=== PATIENT | female | born 1940 | race Caucasian/White ===

== ENCOUNTER 2024-01-26 17:43 | Emergency (ER) | payer MEDICARE, OTHER, SELFPAY ==
[2024-01-26 17:55] VITALS: BP 153/70
[2024-01-26 18:49] VITALS: BMI 22.6
--- NOTE | 2024-01-26 20:10 | ED.GENMED ---
History of Present Illness
General
Chief Complaint: Fall
Time Seen by Provider: 01/26/24 18:47
History of Present Illness
History of Present Illness:
84-year-old female with history of polymyalgia rheumatica and issues with balance presenting to the emergency department after a fall. Patient reports earlier today she tripped on a dog bed in her house. She reports that she was not wearing right
shoes and did not have her cane, fell backward and struck her head on a cabinet door. Denies loss of consciousness, however immediately felt blood trickling down her head so called her neighbor. Reports that her tetanus is up-to-date. Also
reports that she suffered a skin tear to her right elbow, however denies significant pain to the extremities. Denies any chest pain, breathing, abdominal pain. Denies any visual changes. Denies any significant headache. Denies additional acute
medical complaints.
Past History
Past History
ED Past Medical History: HTN, Other (Hearing loss left ear, dry eye, thyroid nodules, difficulty swallowing, restrictive lung disease, head tremors, migraine, renal calculi, ovarian cyst) and Other
ED Past Surgical History: Gynecological (Ovarian cystectomy), Orthopedic (Left knee replacement, spinal surgery for scoliosis, spinal stenosis surgery, plates and neck, carpal tunnel release bilaterally) and Other (Read and agree with pshx)
Social History
Tobacco: Non-smoker
Alcohol: None
Drug: None
Personal: Single
Living: alone
Employment: Employed
Family History
Family History: Hypertension
Phy Exam
Physical Exam
Physical Exam:
General: Well-appearing, no clinical signs of dehydration, nontoxic and in no acute distress
HEENT: protecting airway
Neck: appears supple, no midline tenderness
Head: 5 cm laceration to the parietal aspect of the scalp, bleeding controlled
CV: Normal heart rate, regular rhythm
Resp: No accessory muscle use, no increased work of breathing, lungs clear to auscultation bilaterally
Abd: No distention
Extremities: No deformities, no swelling, no erythema, small skin avulsion to the right elbow with range of motion intact.
Neuro: alert, no focal neurologic deficit
: deferred
Rectal: deferred
Psych: Normal affect
Skin: Intact
Course
Orders/Labs/Results
Orders:
Orders
01/26/24 19:02
CT Cervical Spine W/o Iv Contr Urgent
Comment:
Reason For Exam: fall, lac
CT Head W/o Iv Contrast Urgent
Comment:
Reason For Exam: fall, large lac
Vital Signs
Initial and Last Documented VS:
Initial Vital Signs
Temp Pulse Resp BP Pulse Ox
98.2 F 81 16 153/70 98
01/26/24 17:55 01/26/24 17:55 01/26/24 17:55 01/26/24 17:55 01/26/24 17:55
Last Documented Vital Signs
Temp Pulse Resp BP Pulse Ox
98.2 F 81 16 153/70 98
01/26/24 17:55 01/26/24 17:55 01/26/24 17:55 01/26/24 17:55 01/26/24 17:55
Procedures
Laceration Closure
Posterior Scalp:
Status of Wound: clean
Size of Wound in cm: 5
Preparation: cleaned with saline
Anesthesia: 1% Lidocaine
Type of Closure: single layer closure
Skin Closure Material: skin yoselin
Number of sutures: 5
MDM/Problems Addressed
MDM/Problems Addressed:
84-year-old female with history of polymyalgia rheumatica and balance issues presenting with fall and head laceration. Vital signs on arrival are significant for mild hypertension.
On exam patient is well-appearing, no acute distress or discomfort. Patient does have obvious head laceration, otherwise is neurologically intact without significant signs of acute trauma. Patient notes that she lost her footing, tripped on a dog
bed. Mechanism is mechanical, denies prodromal presyncopal symptoms. Reports that her tetanus is up-to-date. Given head trauma and age, will obtain CT brain imaging. Laceration was irrigated and repaired. Please see procedure note.
*Critical Care Note
Total Time (30-74mins, 75-104mins- exclusive of procedures): Not Applicable
ED Attending Note
-
Portions of this chart may have been created with voice recognition software.� Occasional wrong word or��sound alike� substitutions may have occurred due to the inherent limitations of voice recognition software.
Discharge Plan
Departure
Patient with high blood pressure during this ER visit?: Yes
Condition: Good
Discharge Problem:
Acute head trauma, Laceration of scalp
Instructions: Head Injury in Adults (DC), Laceration Repair With Yoselin (DC)
Prescriptions:
No Action
clonazepam 0.5 MG tablet
0.25 mg PO HS
calcium carbonate [Oyster Shell Calcium 500] 500 MG tablet
500 mg PO DAILY
ascorbic acid (vitamin C) [Vitamin C] 500 MG tablet
1,000 mg PO DAILY
rizatriptan 10 MG tablet,disintegrating
10 mg PO DAILYPRN PRN (Reason: migraine, 2 hr intervals)
omeprazole 20 MG capsule,delayed release(DR/EC)
20 mg PO DAILY
propranolol 120 MG capsule,extended release 24 hr
120 mg PO DAILY
epinephrine [EpiPen] 0.3 MG/0.3/SYRINGE auto-injector
0.3 mg IM DAILYPRN PRN (Reason: anaphylaxis)
loratadine 10 MG tablet
10 mg PO DAILYPRN PRN (Reason: seasonal allergies)
pregabalin 100 MG capsule
100 mg PO TID
Patient Comments:
04/21/20-increase direction due to knee surgery, patient lasted filled 01/28/2020 #270
cholecalciferol (vitamin D3) 1,000 UNITS tablet
1,000 units PO DAILY
denosumab [Prolia] 60 MG/ML syringe
60 mg SQ Q6M
multivitamin with folic acid [Tab-A-Jasper] 1 TABLET tablet
1 tab PO DAILY
Dysport
1 dose INJ Q3M
Patient Comments:
04/21/2020: injection in the neck for head tremor
polyvinyl alcohol-povidon(PF) [Refresh Classic (PF)] 10 DROPS dropperette
1 drops BOTH EYES QIDPRN PRN (Reason: dry eye)
tizanidine 2 MG tablet
2 mg PO TID
aspirin 81 MG tablet,delayed release (DR/EC)
81 mg PO BID
Patient Comments:
increased after knee surgery
acetaminophen [Tylenol Extra Strength] 500 MG tablet
1,000 mg PO TID
losartan 25 MG tablet
25 mg PO QPM
B-complex with vitamin C 1 CAPLET tablet
1 tab PO DAILY
Referrals:
Emmanuel Franks MD [Family Provider] -
Activity Restrictions/Additional Instructions:
You were seen in the emergency department for a scalp laceration after a fall.
Your laceration was subsequently repaired. You were advised to CT brain imaging, however you declined with the understanding that there is a risk of intracranial trauma with mechanism of fall. You verbalized understanding.
Please follow-up closely with your primary care physician.
Return to the emergency department for any worsening of your symptoms, or any development of chest pain, difficulty breathing, abdominal pain with persistent vomiting and inability to tolerate food or liquid by mouth (concern for dehydration),
weakness, headache or confusion, fever greater than 100.4, or any additional symptoms that are concerning to you.
Thank you for choosing [facility].
Interventions
Interventions:
*Risk Screen - Suicide Last Done: 01/26/24 18:49
*General Assessment Last Done: 01/26/24 18:49
*Neglect/Abuse Screening Last Done: 01/26/24 18:49
ED- Fall Risk Assessment Last Done: 01/26/24 18:49
*ED COVID-19 Vaccine History Last Done: 01/26/24 18:49
ED-Musculoskeletal Assessment Last Done: 01/26/24 19:00
ED- Neurological Assessment Last Done: 01/26/24 18:49
ED-Skin Assessment Last Done: 01/26/24 18:49
Discharge Date and Time
Print Language: SAUDI ARABIAN
[2024-01-26 22:23] VITALS: BP 153/85
== END 2024-01-26 22:32 | disposition home or self-care (01) ==
LOC: EMR 17:43
PROVIDERS: EMERGENCY PHYSICIAN Student in an Organized Health Care Education/Training Program; FAMILY PHYSICIAN Family Medicine
DX: S01.01XA Laceration without foreign body of scalp, initial encounter (principal); S51.001A Unspecified open wound of right elbow, initial encounter; S09.90XA Unspecified injury of head, initial encounter; W18.09XA Striking against other object with subsequent fall, initial encounter; Y92.009 Unspecified place in unspecified non-institutional (private) residence as the place of occurrence of the external cause; M35.3 Polymyalgia rheumatica; I10 Essential (primary) hypertension; J98.4 Other disorders of lung; G43.909 Migraine, unspecified, not intractable, without status migrainosus; M48.00 Spinal stenosis, site unspecified; Z96.652 Presence of left artificial knee joint; Z79.82 Long term (current) use of aspirin; Z91.040 Latex allergy status; Z91.048 Other nonmedicinal substance allergy status
CPT/HCPCS: 99284; 12002; 70450; 72125

== ENCOUNTER 2024-02-21 09:43 | Emergency (ER) | payer MEDICARE, OTHER, SELFPAY ==
[2024-02-21 09:50] VITALS: BP 154/88
[2024-02-21 09:59] VITALS: BP 154/88
[2024-02-21 10:17] VITALS: BP 164/79
[2024-02-21 10:20] VITALS: BMI 23.7
[2024-02-21 12:15] LABS: % Basophils 0.3 % (0-2); % Eosinophils 0.6 % (0-6); % Immature Granulocytes 0.5 % (0-0.5); % Lymphocytes 11.1 % (20.5-51.1); % Monocytes 7.5 % (1.7-9.3); Absolute Lymphocytes 0.7 10^3/uL (1.2-3.4); Absolute Monocytes 0.5 10^3/uL (0.1-0.6); Hematocrit 30.1 % (37.0-47.0); Hemoglobin 10.6 g/dL (12.0-16.0); Mean Corp Hgb Conc. 35.2 g/dL (33.0-37.0); Mean Corpuscular Hgb 30.3 pg (27.0-31.0); Mean Platelet Volume 10.2 fL (7.4-10.4); Nucleated Red Blood Cells % 0 %; Platelet Count 149 10^3/uL (130-400); White Blood Cell Count 6.2 10^3/uL (4.8-10.8)
[2024-02-21 12:19] LABS: ALT (SGPT) 35 U/L (0-35); AST (SGOT) 37 U/L (14-36); Alkaline Phosphatase 43 U/L (38-126); Blood Urea Nitrogen 18 mg/dl (7-17); Calcium 9.1 mg/dl (8.4-10.2); Carbon Dioxide 27 mmol/L (22-30); Chloride 96 mmol/L (98-107); Estimated Creatinine Clearance 52 ml/min; Glucose 102 mg/dl (70-99); Potassium 4.1 mmol/L (3.5-5.1); Sodium 130 mmol/L (135-145); Total Bilirubin 0.8 mg/dl (0.2-1.3); Total Protein 5.9 g/dl (6.3-8.2); eGFR > 60.00
[2024-02-21 12:52] VITALS: BP 144/67
--- NOTE | 2024-02-21 13:00 | ED.GENMED ---
History of Present Illness
General
Chief Complaint: Musculo-Skeletal Complaint
Source: patient
Exam Limitations: none
Time Seen by Provider: 02/21/24 10:10
History of Present Illness
History of Present Illness:
84-year-old female who is currently being worked up for frequent falls presents with complaints of lower extremity edema. Sent by her doctor to rule out DVT. Patient offers no other complaints. She recently did injure her left shoulder but did
not want to wear a sling. The patient has an upcoming MRI of her brain to look further into why she has been falling
Past History
Past History
ED Past Medical History: HTN, Other (Hearing loss left ear, dry eye, thyroid nodules, difficulty swallowing, restrictive lung disease, head tremors, migraine, renal calculi, ovarian cyst) and Other
ED Past Surgical History: Gynecological (Ovarian cystectomy), Orthopedic (Left knee replacement, spinal surgery for scoliosis, spinal stenosis surgery, plates and neck, carpal tunnel release bilaterally) and Other (Read and agree with pshx)
Social History
Tobacco: Non-smoker
Alcohol: None
Drug: None
Personal: Single
Living: alone
Employment: Employed
Family History
Family History: Hypertension
Phy Exam
Physical Exam
Physical Exam:
CONSTITUTIONAL Patient alert and oriented to person, place and time. Well-appearing. Vital signs reviewed.
HEAD atraumatic, normocephalic.
EYES eyelids normal to inspection, Extraocular muscles intact, Conjunctiva normal, Sclera normal.
NECK normal range of motion, Trachea midline, no jugular venous distention.
RESPIRATORY CHEST No respiratory distress noted, Chest expansion equal, Bilateral breath sounds clear.
CARDIOVASCULAR regular rate and rhythm, Heart sounds normal.
ABDOMEN abdomen nontender, Bowel sounds normal. No distention.
BACK normal inspection, no obvious deformities
UPPER EXTREMITY no cyanosis, no edema. Limited range of motion of left shoulder
LOWER EXTREMITY range of motion normal, Motor strength normal, no cyanosis, mild bilateral ankle edema.
NEURO Speech normal, No focal motor deficits, [place] coma scale 15, Memory normal, Cranial Nerves intact to screening exam.
SKIN skin warm, dry, and normal in color.
PSYCHIATRIC patient oriented to person place and time, Normal affect.
Course
Orders/Labs/Results
Orders:
Orders
02/21/24 10:16
Peripheral Venous Lwr Ext Bilat US [US Periph Venous LOWER Ext Nigel] Urgent
Comment: sent by pcp
Reason For Exam: b/l edema
02/21/24 11:51
Complete Blood Count/With Diff Urgent
Comprehensive Metabolic Panel Urgent
Abnormal Lab Results
02/21/24
11:51
RBC 3.50 L 10^6/uL
(4.20-5.40)
Hgb 10.6 L g/dL
(12.0-16.0)
Hct 30.1 L %
(37.0-47.0)
RDW 15.0 H %
(11.5-14.5)
Absolute Lymphs (auto) 0.7 L 10^3/uL
(1.2-3.4)
Neutrophils % 80.0 H %
(42.2-75.2)
Lymphocytes % 11.1 L %
(20.5-51.1)
Sodium 130 L mmol/L
(135-145)
Chloride 96 L mmol/L
(98-107)
BUN 18 H mg/dl
(7-17)
Glucose 102 H mg/dl
(70-99)
AST 37 H U/L
(14-36)
Total Protein 5.9 L g/dl
(6.3-8.2)
02/21/24 11:51
02/21/24 11:51
Vital Signs
Initial and Last Documented VS:
Initial Vital Signs
Temp Pulse BP Pulse Ox
98.1 F 71 154/88 100
02/21/24 09:50 02/21/24 09:50 02/21/24 09:50 02/21/24 09:50
Last Documented Vital Signs
Temp Pulse Resp BP Pulse Ox
98.1 F 69 18 164/79 99
02/21/24 09:59 02/21/24 09:59 02/21/24 09:59 02/21/24 10:17 02/21/24 10:30
MDM/Problems Addressed
MDM/Problems Addressed:
Lower extremity edema
*Radiology
Radiology exam reviewed: radiology read reviewed
*Pulse Oximetry
Patient hypoxic: no
*Critical Care Note
Total Time (30-74mins, 75-104mins- exclusive of procedures): Not Applicable
Data Reviewed
Source: patient
Further Testing Considered But Not Given:
Consider chest x-ray patient does not appear to have any evidence of left heart failure
Patient Management
Escalation/DeEscalation of care consider admission/obs:
Ultrasound negative. Labs grossly unremarkable. Refer to PCP for outpatient follow-up.
ED Attending Note
-
Portions of this chart may have been created with voice recognition software.� Occasional wrong word or��sound alike� substitutions may have occurred due to the inherent limitations of voice recognition software.
Discharge Plan
Departure
Patient Disposition: Home (Routine Discharge)
Date of Disposition: 02/21/24
Time of Disposition: 13:05
Patient with high blood pressure during this ER visit?: Yes
Discharge Problem:
Edema
Instructions: Swelling, BLOOD PRESSURE
Prescriptions:
No Action
clonazepam 0.5 MG tablet
0.25 mg PO HS
calcium carbonate [Oyster Shell Calcium 500] 500 MG tablet
500 mg PO DAILY
ascorbic acid (vitamin C) [Vitamin C] 500 MG tablet
1,000 mg PO DAILY
rizatriptan 10 MG tablet,disintegrating
10 mg PO DAILYPRN PRN (Reason: migraine, 2 hr intervals)
omeprazole 20 MG capsule,delayed release(DR/EC)
20 mg PO DAILY
propranolol 120 MG capsule,extended release 24 hr
120 mg PO DAILY
epinephrine [EpiPen] 0.3 MG/0.3/SYRINGE auto-injector
0.3 mg IM DAILYPRN PRN (Reason: anaphylaxis)
loratadine 10 MG tablet
10 mg PO DAILYPRN PRN (Reason: seasonal allergies)
pregabalin 100 MG capsule
100 mg PO TID
Patient Comments:
04/21/20-increase direction due to knee surgery, patient lasted filled 01/28/2020 #270
cholecalciferol (vitamin D3) 1,000 UNITS tablet
1,000 units PO DAILY
denosumab [Prolia] 60 MG/ML syringe
60 mg SQ Q6M
multivitamin with folic acid [Tab-A-Jasper] 1 TABLET tablet
1 tab PO DAILY
Dysport
1 dose INJ Q3M
Patient Comments:
04/21/2020: injection in the neck for head tremor
polyvinyl alcohol-povidon(PF) [Refresh Classic (PF)] 10 DROPS dropperette
1 drops BOTH EYES QIDPRN PRN (Reason: dry eye)
tizanidine 2 MG tablet
2 mg PO TID
aspirin 81 MG tablet,delayed release (DR/EC)
81 mg PO BID
Patient Comments:
increased after knee surgery
acetaminophen [Tylenol Extra Strength] 500 MG tablet
1,000 mg PO TID
losartan 25 MG tablet
25 mg PO QPM
B-complex with vitamin C 1 CAPLET tablet
1 tab PO DAILY
Referrals:
Emmanuel Franks MD [Family Provider] -
Activity Restrictions/Additional Instructions:
Please elevate your legs when possible. Please see your doctor in the next 3 to 5 days for follow-up and reevaluation peer return immediately for shortness of breath, increased swelling, fevers or any other concerns or
Interventions
Interventions:
*Risk Screen - Suicide Last Done: 02/21/24 09:59
*General Assessment Last Done: 02/21/24 10:20
*Neglect/Abuse Screening Last Done: 02/21/24 09:59
ED- Fall Risk Assessment Last Done: 02/21/24 10:22
*ED COVID-19 Vaccine History Last Done: 02/21/24 10:04
ED-Musculoskeletal Assessment Last Done: 02/21/24 10:22
Discharge Date and Time
Print Language: YAKUT
[2024-02-21 13:19] VITALS: BP 126/81
== END 2024-02-21 13:40 | disposition home or self-care (01) ==
LOC: EMR 09:43
PROVIDERS: EMERGENCY PHYSICIAN Emergency Medicine; FAMILY PHYSICIAN Family Medicine
DX: R60.0 Localized edema (principal); I10 Essential (primary) hypertension
CPT/HCPCS: 99284; 80053; 85025; 93970

== ENCOUNTER 2024-02-27 21:19 | Emergency (ER) | payer MEDICARE, OTHER, SELFPAY ==
[2024-02-27 21:31] VITALS: BP 183/93
[2024-02-27 21:42] LABS: % Basophils 0.1 % (0-2); % Eosinophils 0.1 % (0-6); % Immature Granulocytes 0.4 % (0-0.5); % Lymphocytes 5.8 % (20.5-51.1); % Monocytes 7.3 % (1.7-9.3); % Neutrophils 86.3 % (42.2-75.2); Absolute Lymphocytes 0.6 10^3/uL (1.2-3.4); Absolute Monocytes 0.8 10^3/uL (0.1-0.6); Absolute Neutrophils 9.1 10^3/uL (1.4-6.5); Hematocrit 34.3 % (37.0-47.0); Hemoglobin 12.2 g/dL (12.0-16.0); Mean Corp Hgb Conc. 35.6 g/dL (33.0-37.0); Mean Corpuscular Hgb 30.8 pg (27.0-31.0); Mean Corpuscular Volume 86.6 fL (81.0-99.0); Mean Platelet Volume 9.9 fL (7.4-10.4); Nucleated Red Blood Cells % 0 %; Platelet Count 214 10^3/uL (130-400); Red Blood Cell Count 3.96 10^6/uL (4.20-5.40); Red Cell Dist. Width 15.3 % (11.5-14.5); White Blood Cell Count 10.6 10^3/uL (4.8-10.8)
[2024-02-27 22:04] LABS: ALT (SGPT) 40 U/L (0-35); AST (SGOT) 40 U/L (14-36); Albumin 4.8 g/dl (3.5-5.0); Alkaline Phosphatase 36 U/L (38-126); Blood Urea Nitrogen 21 mg/dl (7-17); Calcium 10.2 mg/dl (8.4-10.2); Carbon Dioxide 29 mmol/L (22-30); Chloride 96 mmol/L (98-107); Glucose 129 mg/dl (70-99); Potassium 3.7 mmol/L (3.5-5.1); Sodium 134 mmol/L (135-145); Total Bilirubin 0.7 mg/dl (0.2-1.3); Total Protein 6.9 g/dl (6.3-8.2); eGFR > 60.00
[2024-02-27 22:07] LABS: NT-proBNP 599 pg/ml; Troponin I 0.021 ng/ml
[2024-02-27 23:54] VITALS: BP 160/84
[2024-02-28 00:18] VITALS: BP 176/86
[2024-02-28 00:19] VITALS: BP 176/86; BMI 23.3
--- NOTE | 2024-02-28 00:36 | ED.GENMED ---
History of Present Illness
General
Chief Complaint: Blood Pressure Problem
Time Seen by Provider: 02/28/24 00:01
History of Present Illness
History of Present Illness:
84-year-old female presents the emergency department for evaluation of elevated blood pressure as well as bilateral lower extremity swelling. Was seen in this emergency department 1 week ago for ankle swelling at which time DVT study was negative
bilaterally. She continues to have ankle swelling that improves at night but worsened throughout the day. Notes that she has been falling a lot frequently and is less active as a result. No chest pain or shortness of breath
Past History
Past History
ED Past Medical History: HTN, Other (Hearing loss left ear, dry eye, thyroid nodules, difficulty swallowing, restrictive lung disease, head tremors, migraine, renal calculi, ovarian cyst) and Other
ED Past Surgical History: Gynecological (Ovarian cystectomy), Orthopedic (Left knee replacement, spinal surgery for scoliosis, spinal stenosis surgery, plates and neck, carpal tunnel release bilaterally) and Other (Read and agree with pshx)
Social History
Tobacco: Non-smoker
Alcohol: None
Drug: None
Personal: Single
Living: alone
Employment: Employed
Family History
Family History: Hypertension
Review of Systems
Review of Systems
Allergies reviewed?: Yes
All Other Systems: ROS reviewed and negative except as documented in HPI and ROS
Phy Exam
Physical Exam
Physical Exam:
GEN: Well appearing, NAD, WDWN
HEENT: Oral mucosa moist, no scleral icterus
Cardiac: Regular rate and rhythm, no murmurs
Lung: No respiratory distress, no tachypnea, lungs clear to auscultation
MSK: No gross deformity or injuries, trace edema to bilateral ankles, no pretibial edema, palpable dorsalis pedis pulses bilaterally
Skin: Good color, no pallor or jaundice, no rashes
Neuro: AO x3, moves all extremities freely
Psych: Calm, cooperative
Course
Orders/Labs/Results
Orders:
Orders
02/27/24 21:23
Electrocardiogram (*1) Urgent
Reason for Study: Other
Other Reason for Exam: Respiratory Distress
Cardiac Monitoring- Treatment ONCE
EKG- Treatment ONCE
IV Insert/Care/Rem.- Treatment PRN
O2 Therapy [RESP] Urgent
Titrate/Wean O2 to maintain O2 sat greater than (%): 93
Special Instructions: TO MAINTAIN CONTINUOUS O2 SATS >/= 93%
Pulse Ox/cont/shift [RESP] Urgent
Quantity: 1
Special Instructions: continuous pulse ox
02/27/24 21:37
Complete Blood Count/With Diff Urgent
Comprehensive Metabolic Panel Urgent
NT-proBNP Urgent
Troponin I Urgent
02/28/24 00:00
CR Chest - 2 Views Urgent
Reason For Exam: respiratory distress
Abnormal Lab Results
02/27/24
21:37
RBC 3.96 L 10^6/uL
(4.20-5.40)
Hct 34.3 L %
(37.0-47.0)
RDW 15.3 H %
(11.5-14.5)
Absolute Neuts (auto) 9.1 H 10^3/uL
(1.4-6.5)
Absolute Lymphs (auto) 0.6 L 10^3/uL
(1.2-3.4)
Absolute Monos (auto) 0.8 H 10^3/uL
(0.1-0.6)
Neutrophils % 86.3 H %
(42.2-75.2)
Lymphocytes % 5.8 L %
(20.5-51.1)
Sodium 134 L mmol/L
(135-145)
Chloride 96 L mmol/L
(98-107)
BUN 21 H mg/dl
(7-17)
Creatinine 0.5 L mg/dL
(0.6-1.0)
Glucose 129 H mg/dl
(70-99)
AST 40 H U/L
(14-36)
ALT 40 H U/L
(0-35)
Alkaline Phosphatase 36 L U/L
(38-126)
02/27/24 21:37
02/27/24 21:37
Vital Signs
Initial and Last Documented VS:
Initial Vital Signs
Temp Pulse Resp BP Pulse Ox
98.2 F 72 18 183/93 98
02/27/24 21:31 02/27/24 21:31 02/27/24 21:31 02/27/24 21:31 02/27/24 21:31
Last Documented Vital Signs
Temp Pulse Resp BP Pulse Ox
98.2 F 70 16 176/86 98
02/27/24 21:31 02/28/24 00:45 02/28/24 00:45 02/28/24 00:19 02/28/24 00:45
MDM/Problems Addressed
MDM/Problems Addressed:
Patient's leg edema is likely venous stasis on the basis of sedentary lifestyle recently. She has no clinical evidence of congestive heart failure and chest x-ray is clear. Given that she has falling difficulty would hesitate to place her on a
diuretic as the increased urination would almost certainly result in a physical injury from falling. Recommend increase activity as tolerated and elevation, encourage primary care follow-up for further management of blood pressure if it remains
elevated
Comment
Comment:
EKG independently interpreted by me shows normal sinus rhythm at a rate of 68 with LVH criteria, otherwise no acute changes
*Critical Care Note
Total Time (30-74mins, 75-104mins- exclusive of procedures): Not Applicable
ED Attending Note
-
Portions of this chart may have been created with voice recognition software.� Occasional wrong word or��sound alike� substitutions may have occurred due to the inherent limitations of voice recognition software.
Discharge Plan
Departure
Patient Disposition: Home (Routine Discharge)
Date of Disposition: 02/28/24
Time of Disposition: 00:39
Patient with high blood pressure during this ER visit?: Yes
Discharge Problem:
Bilateral edema of lower extremity
Instructions: Swelling
Prescriptions:
No Action
clonazepam 0.5 MG tablet
0.25 mg PO HS
calcium carbonate [Oyster Shell Calcium 500] 500 MG tablet
500 mg PO DAILY
ascorbic acid (vitamin C) [Vitamin C] 500 MG tablet
1,000 mg PO DAILY
rizatriptan 10 MG tablet,disintegrating
10 mg PO DAILYPRN PRN (Reason: migraine, 2 hr intervals)
omeprazole 20 MG capsule,delayed release(DR/EC)
20 mg PO DAILY
propranolol 120 MG capsule,extended release 24 hr
120 mg PO DAILY
epinephrine [EpiPen] 0.3 MG/0.3/SYRINGE auto-injector
0.3 mg IM DAILYPRN PRN (Reason: anaphylaxis)
loratadine 10 MG tablet
10 mg PO DAILYPRN PRN (Reason: seasonal allergies)
pregabalin 100 MG capsule
100 mg PO TID
Patient Comments:
04/21/20-increase direction due to knee surgery, patient lasted filled 01/28/2020 #270
cholecalciferol (vitamin D3) 1,000 UNITS tablet
1,000 units PO DAILY
denosumab [Prolia] 60 MG/ML syringe
60 mg SQ Q6M
multivitamin with folic acid [Tab-A-Jasper] 1 TABLET tablet
1 tab PO DAILY
Dysport
1 dose INJ Q3M
Patient Comments:
04/21/2020: injection in the neck for head tremor
polyvinyl alcohol-povidon(PF) [Refresh Classic (PF)] 10 DROPS dropperette
1 drops BOTH EYES QIDPRN PRN (Reason: dry eye)
tizanidine 2 MG tablet
2 mg PO TID
aspirin 81 MG tablet,delayed release (DR/EC)
81 mg PO BID
Patient Comments:
increased after knee surgery
acetaminophen [Tylenol Extra Strength] 500 MG tablet
1,000 mg PO TID
losartan 25 MG tablet
25 mg PO QPM
B-complex with vitamin C 1 CAPLET tablet
1 tab PO DAILY
Interventions
Interventions:
*Risk Screen - Suicide Last Done: 02/27/24 21:24
*General Assessment Last Done: 02/27/24 21:31
*Neglect/Abuse Screening Last Done: 02/27/24 21:31
ED- Fall Risk Assessment Last Done: 02/28/24 00:58
*ED COVID-19 Vaccine History Last Done: 02/27/24 21:31
*Nursing Disposition Last Done: 02/28/24 00:58
ED- Cardiac Assessment Last Done: 02/28/24 00:21
ED- Neurological Assessment Last Done: 02/28/24 00:21
ED- Pulmonary Assessment Last Done: 02/28/24 00:21
Discharge Date and Time
Discharge Date/Time: 02/28/24 00:59
Print Language: NICARAGUAN
== END 2024-02-28 00:59 | disposition home or self-care (01) ==
LOC: EMR 21:19
PROVIDERS: Emergency Medicine; EMERGENCY PHYSICIAN Emergency Medicine; FAMILY PHYSICIAN Family Medicine
DX: R60.0 Localized edema (principal); I10 Essential (primary) hypertension; Z82.49 Family history of ischemic heart disease and other diseases of the circulatory system; Z87.442 Personal history of urinary calculi; Z96.652 Presence of left artificial knee joint
CPT/HCPCS: 99283; 71046; 80053; 83880; 84484; 85025; 93005

== ENCOUNTER 2024-08-16 13:29 | Inpatient (IN) | payer MEDICARE, OTHER, SELFPAY ==
[2024-08-14 21:04] VITALS: BP 161/80
[2024-08-14 21:27] LABS: % Basophils 0.1 % (0-2); % Eosinophils 0.1 % (0-6); % Immature Granulocytes 0.5 % (0-0.5); % Lymphocytes 7.1 % (20.5-51.1); % Monocytes 10.2 % (1.7-9.3); Absolute Immature Granulocytes 0.1 10^3/uL (0-0.05); Absolute Lymphocytes 0.8 10^3/uL (1.2-3.4); Absolute Monocytes 1.2 10^3/uL (0.1-0.6); Absolute Neutrophils 9.3 10^3/uL (1.4-6.5); Hematocrit 33.2 % (37.0-47.0); Hemoglobin 12.2 g/dL (12.0-16.0); Mean Corp Hgb Conc. 36.7 g/dL (33.0-37.0); Mean Corpuscular Hgb 31.4 pg (27.0-31.0); Mean Corpuscular Volume 85.3 fL (81.0-99.0); Mean Platelet Volume 10.3 fL (7.4-10.4); Nucleated Red Blood Cells % 0 %; Platelet Count 181 10^3/uL (130-400); Red Blood Cell Count 3.89 10^6/uL (4.20-5.40); Red Cell Dist. Width 14.5 % (11.5-14.5); White Blood Cell Count 11.4 10^3/uL (4.8-10.8)
[2024-08-14 21:48] LABS: ALT (SGPT) 53 U/L (0-35); AST (SGOT) 49 U/L (14-36); Albumin 4.1 g/dl (3.5-5.0); Alkaline Phosphatase 50 U/L (38-126); Blood Urea Nitrogen 26 mg/dl (7-17); Calcium 8.7 mg/dl (8.4-10.2); Carbon Dioxide 21 mmol/L (22-30); Chloride 95 mmol/L (98-107); Glucose 113 mg/dl (70-99); Potassium 4.9 mmol/L (3.5-5.1); Sodium 124 mmol/L (135-145); Total Bilirubin 1.2 mg/dl (0.2-1.3); Total Protein 5.9 g/dl (6.3-8.2); eGFR > 60.00
[2024-08-14 22:56] VITALS: BMI 21.1
[2024-08-14 23:00] VITALS: BP 129/77
--- NOTE | 2024-08-14 23:02 | ED.GENMED ---
History of Present Illness
General
Chief Complaint: Dizziness
Source: patient
Exam Limitations: none
Time Seen by Provider: 08/14/24 22:39
History of Present Illness
History of Present Illness:
84yoF with a history of hypertension, migraines, and leg pain on Lyrica presenting for evaluation of balance issues. Patient has been off balance for the past several days. She states she will bend over and not be able to get back up due to
imbalance. She has fallen multiple times and sustained skin tears to bilateral forearms. She believes she hit her head but is not sure. She denies a loss of consciousness. She denies any dizziness including vertiginous symptoms and
lightheadedness. Patient also reports dry mouth and feeling very dehydrated. She is currently on an antibiotic for a possible UTI but she is not sure of the name. She denies any fevers, vomiting, diarrhea, chest pain, shortness of breath, weight
loss. No recent medication changes.
Past History
Past History
ED Past Medical History: HTN, Other (Hearing loss left ear, dry eye, thyroid nodules, difficulty swallowing, restrictive lung disease, head tremors, migraine, renal calculi, ovarian cyst) and Other
ED Past Surgical History: Gynecological (Ovarian cystectomy), Orthopedic (Left knee replacement, spinal surgery for scoliosis, spinal stenosis surgery, plates and neck, carpal tunnel release bilaterally) and Other (Read and agree with psx)
Social History
Tobacco: Non-smoker
Alcohol: None
Drug: None
Personal: Single
Living: alone
Employment: Employed
Family History
Family History: Hypertension
Phy Exam
General Physical Exam
General Presentation: well appearing and no apparent distress
General age: appears stated age
General Skin: warm and dry
General Habitus: normal
General Mental: alert
General Hydration: dry mucous membranes
ENT Exam
ENT Exam: normocephalic
Cardiovascular Exam
Cardiovascular Exam: regular rate/rhythm and normal peripheral pulses
Pulmonary Exam
Pulmonary Exam: lungs clear, no respiratory distress, no rales, no crackles and no rhonchi
Neurological Exam
Neurological Exam: alert and other (No focal neuro deficits. Upper extremity strength testing limited by bilateral rotator cuff tears.)
[place] Coma Scale
Eye Opening: Spontaneous
Verbal Response: Oriented
Motor Response: Obeys Commands
GCS Total Score: 15
Skin Exam
Skin Exam: normal color and warm/dry
Psychiatric Exam
Psychiatric Exam: normal mood/affect
Course
Orders/Labs/Results
Orders:
Orders
08/14/24 21:11
Electrocardiogram (*1) Urgent
Reason for Study: Vertigo / Dizzy
EKG- Treatment ONCE
08/14/24 21:13
CT Head W/o Iv Contrast Urgent
Comment:
Reason For Exam: dizziness
08/14/24 21:20
CMP [Comprehensive Metabolic Panel] Urgent
Complete Blood Count/With Diff Urgent
08/14/24 23:01
Cardiac Monitoring- Treatment ONCE
Osmolality, Random Urine Urgent
Date Specimen was Collected: 08/14/24
Time Specimen was Collected: 23:56
Urinalysis Reflex To Culture Urgent
Date Specimen was Collected: 08/14/24
Time Specimen was Collected: 23:56
Urine Sodium Urgent
Date Specimen was Collected: 08/14/24
Time Specimen was Collected: 23:56
0.9% Sodium Chloride 500 ml [Nss] 500 ml IV BOLUS
08/14/24 23:20
Troponin I Urgent
08/15/24 00:04
Urine Microscopic Reflex Cult Urgent
08/15/24 01:50
Admit/Transfer Patient As Directed
Co-Sign Provider:
Level of Care: Observation services
Assign to:: Medical/Surgical
Physician / Group: hospitalist
Diagnosis: hyponatremia
08/15/24 01:51
PRN Pain Medication Management As Directed
May give lesser potent ordered pain med per pt: Yes
preference::
Protocol:: Medication orders for pain may be administered in a
manner that supports deferring to patient preference
when the pt is:
- Requesting an ordered lesser potent pain medication.
Least to most potent pain medications are defined
as: acetaminophen < NSAID < tramadol < opioids
(morphine, oxycodone, hydromorphone).
- Requesting a lesser dose of the same medication IF
ORDERED.
- Requesting a less intrusive route of administration
if both routes are prescribed by the provider (PO <
IV).
08/15/24 01:53
Code Status As Directed
Resuscitation Status: Full Code
Abnormal Lab Results
08/14/24 08/15/24
21:20 00:04
WBC 11.4 H 10^3/uL
(4.8-10.8)
RBC 3.89 L 10^6/uL
(4.20-5.40)
Hct 33.2 L %
(37.0-47.0)
MCH 31.4 H pg
(27.0-31.0)
Abs Immat Gran (auto) 0.1 H 10^3/uL
(0-0.05)
Absolute Neuts (auto) 9.3 H 10^3/uL
(1.4-6.5)
Absolute Lymphs (auto) 0.8 L 10^3/uL
(1.2-3.4)
Absolute Monos (auto) 1.2 H 10^3/uL
(0.1-0.6)
Neutrophils % 82.0 H %
(42.2-75.2)
Lymphocytes % 7.1 L %
(20.5-51.1)
Monocytes % 10.2 H %
(1.7-9.3)
Sodium 124 L mmol/L
(135-145)
Chloride 95 L mmol/L
(98-107)
Carbon Dioxide 21 L mmol/L
(22-30)
BUN 26 H mg/dl
(7-17)
Glucose 113 H mg/dl
(70-99)
AST 49 H U/L
(14-36)
ALT 53 H U/L
(0-35)
Total Protein 5.9 L g/dl
(6.3-8.2)
Urine Bacteria (Reflex) Few A
(Negative)
Urine Sodium 111 H mmol/L
(30-90)
Urine Albumin (Reflex) 1+ A
(Neg - Trace)
08/14/24 21:20
08/14/24 21:20
Vital Signs
Initial and Last Documented VS:
Initial Vital Signs
Temp Pulse Resp BP Pulse Ox
98.4 F 73 18 161/80 97
08/14/24 21:04 08/14/24 21:04 08/14/24 21:04 08/14/24 21:04 08/14/24 21:04
Last Documented Vital Signs
Temp Pulse Resp BP Pulse Ox
98.4 F 78 23 167/74 99
08/14/24 21:04 08/15/24 02:30 08/15/24 02:30 08/15/24 02:00 08/15/24 02:00
MDM/Problems Addressed
Differential Diagnosis Includes:
84yoF here with balance issues x several days. Has fallen multiple times. Denies headache or dizziness. Also c/o dry mouth and feeling dehydrated. She is mildly hypertensive with otherwise normal vital signs. She is acutely nontoxic appearing.
Dry mucous membranes noted. Differential diagnosis includes but is not limited to: Dehydration, electrolyte abnormality, failure to thrive, arrhythmia, CVA, UTI
Labs obtained in triage. Sodium is 124 which appears new. Creatinine within normal limits. Will check troponin, EKG, UA, urine sodium/osmolality, and CT head. 500cc NS bolus ordered. Patient will require hospitalization given hyponatremia and
severity of symptoms.
*EKG
Interpreted by ED Provider?: Yes
EKG Intrepretation Date: 08/14/24
Heart Rate: 72
Rate: normal
Rhythm: sinus
Mutual: normal axis
Interval: normal interval
QRS Pattern: normal QRS
Ischemia: no ischemia
*Critical Care Note
Total Time (30-74mins, 75-104mins- exclusive of procedures): Not Applicable
ED Attending Note
-
Portions of this chart may have been created with voice recognition software.� Occasional wrong word or��sound alike� substitutions may have occurred due to the inherent limitations of voice recognition software.
Discharge Plan
Departure
Patient Disposition: Admit
Date of Disposition: 08/14/24
Time of Disposition: 23:58
Presentation/result/management discussed w/ accepting MD/DO: Hospitalist
Discharge Problem:
Imbalance, Multiple falls, Hyponatremia
Interventions
Interventions:
*Risk Screen - Suicide Last Done: 08/14/24 21:04
*General Assessment Last Done: 08/14/24 21:04
*Neglect/Abuse Screening Last Done: 08/14/24 21:04
*ED- Fall Risk Assessment Last Done: 08/14/24 22:56
*ED COVID-19 Vaccine History Last Done: 08/14/24 21:04
ED- Neurological Assessment Last Done: 08/14/24 22:56
ED- Cardiac Assessment Last Done: 08/14/24 22:56
ED Swallowing Screen Last Done: 08/15/24 03:12
[2024-08-14] MEDS: NSS 500 IV (23:21)
[2024-08-14 23:54] LABS: Troponin I 0.019 ng/ml
[2024-08-15] VITALS (8 sets, daily range): BP systolic 124–176; BP diastolic 62–96; PULSE 72–94; O2SAT 99; BMI 21.9
[2024-08-15 00:13] LABS: Osmolality Urine 484 mOsm/kg (300-900); Urine Albumin 1+ (Neg - Trace); Urine Bilirubin Negative (Negative); Urine Character Clear (Clear); Urine Color Yellow; Urine Glucose Negative (Negative); Urine Ketone Negative (Negative); Urine Leukocyte Negative (Negative); Urine Nitrite Negative (Negative); Urine Occult Blood Negative (Negative); Urine Urobilinogen Negative (Neg - 1+)
[2024-08-15 00:25] LABS: Urine Sodium 111 mmol/L (30-90)
[2024-08-15 00:55] LABS: Urine Amorphous Seen; Urine Red Blood Cell 0-2 /HPF (0-2); Urine White Cell 0-2 /HPF (0-5)
[2024-08-15 00:56] LABS: Urine Bacteria Few (Negative)
--- NOTE | 2024-08-15 01:33 | HPS.HSE ---
Family Physician
-
Family Physician: Aubrie Andrade
Chief Complaint
-
Dizziness
History of Present Illness
This is a 84-year-old female with past medical history significant for hypertension, migraine headaches, vertigo, small airways disease, pulmonary hypertension, chronic back pain status post surgery presents to the emergency department with
persistent episodes of dizziness, ambulatory dysfunction and falls at home.
Patient reports that she has been having symptoms of dizziness for several months now. She reports has been likely about 6 months. She reports that these all cause when she bends down. She feels like she is going to fall over. She also reports
that when she walks she is leaning. She reports that she has no symptoms if she is just sitting down. She denies a spinning sensation. She denies any double vision or blurry vision. She denies any associated headaches. Patient reports chronic
neuropathy for which she has been taking Lyrica. She denies any weakness. She denies any new numbness. She denies any palpitations. She feels that this is not lightheadedness and he has had no syncopal episodes. The ambulance tested to multiple
falls at home and she lives by herself.
She reports that she been eating and drinking normally. She denies any recent changes in her medications but Lyrica has been recently increased to 150 3 times daily. She denies polyuria. She reports that specifically today she drank copious
amounts of water due to thinking that she is dehydrated and that was the reason for dizziness.
She reports that she has had a recent brain MRI per neurology for complaints of dizziness which was unremarkable. She cannot tell me exactly how long ago when appears to be within the last 2 months.
She denies any alcohol use. She denies tobacco use. She denies any recent cough.
In the emergency department she was afebrile, blood pressure was 129/70 with a pulse of 74. She was satting at 98% on room air. She has normal CBC. Electrolytes were notable for a sodium of 124 but otherwise unremarkable. UA was negative. CT of
the head shows no acute intracranial process. LFTs shows a slight increase in AST and ALT. Urine osmolality was elevated at 4 and 80, urine sodium was also elevated at 111
Medical History
Past Medical History
Past Medical History: Reports GERD, HTN and Psychiatric (anxiety)
Past Surgical History: Reports Cholecystectomy and Orthopedic (Spinal surgery for scoliosis, status post spinal fusion, right knee replacement, partial left knee replacement)
Social History
Tobacco: Non-smoker
Alcohol: None
Drug: None
Personal: Single
Living: Alone
Employment: Retired
Family History
Family History: Not pertinent
Allergies / Home Medications
Allergies reflects when Allergies were last updated in [facility].
Home Medications with original date entered in [facility]
Allergy/Medication List:
Allergies
Allergy/AdvReac Type Severity Reaction Status Date / Time
adhesive tape Allergy sores Verified 08/14/24 21:02
latex Allergy Rash Verified 08/14/24 21:02
Home Medications
Dysport 1 dose INJ Q3M 03/09/19
ascorbic acid (vitamin C) 500 mg tablet (Vitamin C) 1,000 mg PO DAILY 03/09/19
cholecalciferol (vitamin D3) 25 mcg (1,000 unit) tablet 1,000 units PO DAILY 03/09/19
clonazepam 0.5 mg tablet 0.25 mg PO HS 03/09/19
denosumab 60 mg/mL subcutaneous syringe (Prolia) 60 mg SQ Q6M 03/09/19
loratadine 10 mg tablet 10 mg PO DAILYPRN PRN seasonal allergies 03/09/19
multivitamin with folic acid 400 mcg tablet (Tab-A-Jasper) 1 tab PO DAILY 03/09/19
omeprazole 20 mg capsule,delayed release 20 mg PO DAILY 03/09/19
polyvinyl alcohol-povidone (PF) 1.4 %-0.6 % eye drops in a dropperette (Refresh Classic (PF)) 1 drops BOTH EYES QIDPRN PRN dry eye 03/09/19
pregabalin 100 mg capsule 150 mg PO TID 03/09/19
propranolol 120 mg capsule,24 hr,extended release 120 mg PO DAILY 03/09/19
rizatriptan 10 mg disintegrating tablet 10 mg PO DAILYPRN PRN migraine, 2 hr intervals 03/09/19
losartan 25 mg tablet 25 mg PO QPM 04/21/20
naproxen sodium 220 mg capsule (Aleve) 440 mg PO BID PRN pain 08/15/24
Review of Systems
-
History Source: Patient
Constitutional: Reports No Symptoms
EENT: Reports No Symptoms
Respiratory: Reports No Symptoms
Cardiac: Reports No Symptoms
Abdomen/GI: Reports No Symptoms
: Reports No Symptoms
Musculoskeletal: Reports No Symptoms
Skin: Reports No Symptoms
Neurological: Reports Dizzy
Endocrine: Reports No Symptoms
Hematologic/Lymphatic: Reports No Symptoms
Psych: Reports No Symptoms
Physical Exam
Vital Signs
Vital Signs
Temp Pulse Resp BP Pulse Ox
98.4 F 75 23 129/77 99
08/14/24 21:04 08/15/24 01:15 08/15/24 01:15 08/14/24 23:00 08/15/24 01:15
Physical Exam
General: Well Developed, Well Nourished, No Apparent Distress and Comfortable
HEENT: NormoCephalic, Anicteric, Moist mucous membranes and Atraumatic
Cardiac: S1/S2 and Regular Rhythm
Breast: Deferred by me
GI: Soft, Non Tender, Non Distended and Normal Bowel Sounds
Rectal: Deferred by Provider
Genito-urinary: Deferred by me
Musculoskeletal: No Clubbing, No Cyanosis and No Edema
Neuro: AO x 3 and Nonfocal/grossly intact
Psych: Calm
Laboratory Results
-
08/14/24 21:20
08/14/24 21:20
Laboratory Results
Total Bilirubin 1.2 mg/dl (0.2-1.3) 08/14/24 21:20
AST 49 U/L (14-36) H 08/14/24 21:20
ALT 53 U/L (0-35) H 08/14/24 21:20
Alkaline Phosphatase 50 U/L (38-126) 08/14/24 21:20
Troponin I 0.019 ng/ml 08/14/24 23:20
Data Reviewed
-
CT Scan: Report Reviewed by me
Lab Data: Labs Reviewed by me
Old Records: Reviewed
Impression/Plan
-
IMPRESSION:
84-year-old female comes into the emergency department with complaints of dizziness that is worse with ambulation and has led to multiple falls at home. Ongoing symptoms for several months now. Prior outpatient MRI reported as unremarkable. CT of
the head is negative here. Neurological exam shows no focal abnormalities. Lab abnormalities notable for a sodium of 124 but otherwise unremarkable. She is hemodynamically stable to hypertensive.
PLAN:
Hyponatremia -she has had episodes of hyponatremia since 2019 with sodium as low as 129, most recent low in February a history 130. 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 Urine
sodium is elevated at 111 and BP elevated so unlikely salt wasting. Urine osmolality is elevated at 480. This findings consistent with SIADH. May explain some of her dizziness. She is euvolemic and normotensive to hypertensive and is not on any
diuretics.
- admit to med/surg
- check am cortisol and tsh
- hold further iv fluids for now
- strict fluid restriction 40z and check In 8 hours, start hypertenonic saline if further decreased
- orthostatic vs, if orthostatic likely cortisol def as she does not appear dry and shows no signs fo CHF
- no medications predisposing to hyponatremia solely, ? lyrica
- monitor i/os
- Nephrology consult
Dizziness - No focal deficits on exam. Has outpatient neurology following but symptoms appear worse with falls.
- check orthostatics
- PT OT evaluation
- consider neuro consult after sodium correction.
HTN
- continue losartan and propranolol
DVT PPX - lovenox sq
code status - Full Code
[2024-08-15 06:30] LABS: NT-proBNP 585 pg/ml
[2024-08-15 06:39] LABS: Blood Urea Nitrogen 19 mg/dl (7-17); Calcium 8.6 mg/dl (8.4-10.2); Carbon Dioxide 23 mmol/L (22-30); Chloride 99 mmol/L (98-107); Estimated Creatinine Clearance 45 ml/min; Glucose 130 mg/dl (70-99); Magnesium 2.1 mg/dl (1.6-2.3); Potassium 4.3 mmol/L (3.5-5.1); Sodium 128 mmol/L (135-145); eGFR > 60.00
[2024-08-15] MEDS: PROTONIX 40 MG PO ×2 (06:51)
[2024-08-15] MEDS: LYRICA 150 MG PO ×3 (06:51→21:58)
[2024-08-15 07:07] LABS: Cortisol, Random 1.6 ug/dl; TSH 0.86 uIU/ml (0.47-4.68)
[2024-08-15] MEDS: INDERAL LA 120 MG PO (08:15)
[2024-08-15] MEDS: MIRALAX 17 GRAMS PO (08:15)
--- NOTE | 2024-08-15 08:43 | W.PN.UPDATE ---
Update Note
Progress Note Update
Patient seen and examined-see H&P from earlier today and changes as following: Sodium went up from 124 to 128. Urine sodium 111 and urine osmolarity 484 consistent with SIADH. Continue fluid restriction. Cortisol level 1.6 so start oral
hydrocortisone 10 mg in the morning and 5 mg in the evening. Restart eye drops.
--- NOTE | 2024-08-15 10:49 | CM ---
Met with patient at bedside; initial assessment completed
Son is listed at primary contact but she prefers that we call her sister, Patsy Vega # [phone]
SMITH form explained and signed @ 1040
Pharmacy verified: [facility] @ [address] [place] [address]
Lives alone; multilevel home; full bath on 1st floor; 13 steps to 2nd floor bedroom
PLOF: was independent with ADLs prior to admission; ambulated with multiprong cane or rolling walker; railings on stairs; no other DME
Home PT with [facility] discontinued 1 month ago; Preference is [facility] if home PT is recommended
No history of SNF utilization in the past
Transport home via [facility] if family is unavailable to provide
Discharge plan to be determined; PT/OT ordered; CM will monitor and support as needed
[2024-08-15] MEDS: CORTEF 10 MG PO (10:54)
[2024-08-15] MEDS: LIPITOR 20 MG PO (10:54)
[2024-08-15] MEDS: REFRESH EYE DROPS (PF) 1 DROPS BOTH EYES ×2 (15:11→18:02)
--- NOTE | 2024-08-15 15:11 | PTCARENOTE ---
pt c/o dry eyes, eyes red, made aware, new order provided, see MAR.
[2024-08-15] MEDS: LOVENOX 40 MG SC (18:01)
[2024-08-15] MEDS: COZAAR 25 MG PO (18:01)
[2024-08-15] MEDS: CORTEF 5 MG PO (18:01)
--- NOTE | 2024-08-16 05:38 | PTCARENOTE ---
Pt is at high risk for falls d/t hx of vertigo, symptoms of dizziness for several months, and multiple falls at home. Pt advised to use the call morrell when needing assistance to ensure safety, especially when going to the bathroom. Pt is adamantly
refusing to utilize the call morrell. This RN observed pt ambulating to the bathroom alone and pt almost fell twice. Pt educated a bed alarm would be placed for safety to which the pt became very angry and stated 'if you put an alarm on this bed I am
leaving. I am going to call my doctor to get me out of here. I have had enough of you.' Bed alarm was placed and pt has not made any attempts to get OOB since. Will continue to monitor pt, call morrell within reach.
[2024-08-16 07:31] VITALS: BP 129/67
[2024-08-16] MEDS: INDERAL LA 120 MG PO (08:00)
[2024-08-16] MEDS: CORTEF 10 MG PO (08:00)
[2024-08-16] MEDS: LIPITOR 20 MG PO (08:00)
[2024-08-16] MEDS: LYRICA 150 MG PO ×3 (08:02→21:04)
[2024-08-16 08:30] LABS: Blood Urea Nitrogen 16 mg/dl (7-17); Calcium 8.8 mg/dl (8.4-10.2); Carbon Dioxide 24 mmol/L (22-30); Chloride 100 mmol/L (98-107); Estimated Creatinine Clearance 52 ml/min; Glucose 114 mg/dl (70-99); Potassium 4.7 mmol/L (3.5-5.1); Sodium 130 mmol/L (135-145); eGFR > 60.00
--- NOTE | 2024-08-16 13:27 | W.PN.HOSP.TC ---
Today's Communication/Plan
-
see A/P
Assessment / Plan
Assessment / Plan
84-year-old female comes into the emergency department with complaints of dizziness that is worse with ambulation and has led to multiple falls at home. Ongoing symptoms for several months now. Prior outpatient MRI reported as unremarkable. CT of
the head is negative here. Neurological exam shows no focal abnormalities. Lab abnormalities notable for a sodium of 124 on admission but otherwise unremarkable. She is hemodynamically stable to hypertensive.
A/P:
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
Sodium level improved from 124 to 130
cont fluid restriction
am cortisol level low at 1.6, started hydrocortisone 15 mg daily
TSH WNL at 0.86
Renal CS
Recc outpt Endo eval
# Dizziness, likely 2/2 above
No focal deficits on exam.
CT head from admission: No evidence of acute intracranial abnormality.
orthostatic VS WNL
PT OT recc SNF, however pt elected outpt PT
# HTN
continue losartan and propranolol
# Chronic R knee pain
trial of capsaicin cream
DVT PPX - Lovenox sq
code status - Full Code
Dispo: PT OT recc SNF, however pt elected outpt PT although it does not sound like pt or family understand what SNF involved. CM to explain.
DW CM
updated son on the phone extensively
total time spent 51 min
Anticipated Discharge: 24 - 48 hours
Subjective/Interval History
-
Date of Service: August 16, 2024
Objective Data
-
Labs:
Laboratory Results
08/16/24
07:10
Sodium 130 L
Potassium 4.7
Chloride 100
Carbon Dioxide 24
BUN 16
Creatinine 0.6
Glucose 114 H
Calcium 8.8
Vital Signs:
Vital Signs
Temp Pulse Resp BP Pulse Ox
36.7 C 76 16 129/97 98
08/16/24 07:31 08/16/24 08:00 08/16/24 07:31 08/16/24 08:00 08/16/24 07:31
I&O
08/15/24 08/16/24 08/17/24
06:59 06:59 06:59
Intake Total 1769
Balance 1769
Review of Systems
-
History Source: Patient
Constitutional: Reports Other (off balance )
Physical Exam
-
General: Well Developed, Well Nourished, No Apparent Distress, Comfortable and Conversant; Negative Respiratory Distress
HEENT: Normocephalic, Atraumatic, Nose Appears Normal and Ears Appear Normal; Negative Oxygen
Respiratory: Clear to Auscultation and Non Labored Respirations; Negative Accessory Resp Muscle Use
Cardiac: Regular Rhythm and S1/S2
GI: Soft, Nontender, Nondistended and Normal Bowel Sounds
Skin: Warm and Dry
Neuro: Awake, Alert and Oriented
Psych: Calm and Intact Judgement/Insight
Data Reviewed
-
CT Scan: Report Reviewed by me
Labs: Labs Reviewed by me
[2024-08-16 15:34] VITALS: BP 131/65
--- NOTE | 2024-08-16 15:43 | W.CON.NEPH ---
Consultation
-
Date/Time Consultation Requested: 08/16/24 1337
Date/Time Consultation Performed: 08/16/24 1545
Requesting Provider: Jackie Aranda
Performing Provider: Humera Hoskins
Reason for Consultation: Hyponatremia
Medical History
-
Chief Complaint: Dizziness
History of Present Illness:
84-year-old female with past medical history significant for hypertension low dose Losartan, migraine headaches on Propranolol, Clonazepam, vertigo, small airways disease, pulmonary hypertension, chronic back pain status post surgery, chr
hyponatremia recent sodium 130s in Feb presents to the emergency department with persistent episodes of dizziness, ambulatory dysfunction and falls at home on 08/14.
Patient reports that she has been having symptoms of dizziness for 6 months now more so in last 4weeks. Symptoms worse when bends down and feels like going to fall over and when she walks she is leaning. She denies any associated headaches.
Patient reports chronic neuropathy for which she has been taking Lyrica, dose recently increased to 150mg. She had knee procedure 4weeks ago and was taking aleeve / ibuprofen occasionally for pain. She typically dose not drink lot of fluids since
feeling dizzy she started to drink 8 glasses of fluid/day. Appetite is good. no n/v, no abd pain, n dysuria.
She does get botox injection for U urgency , most recently 4weeks ago by Dr Small. After botx her urine stream has slowed down.
On admit her sodium was 124 and had 500cc NS in ER. SHe maintained on FR with improvement of sodium upto 128. Her cortisol was low at 1.6 hence started on hydrocortisone by primary and today sodium at 130, nephrology asked to comment on
hyponatremia. Her BP are not low.
Past Medical History
GERD, HTN , anxiety, chr hyponatremia, small airway disease, pulm HTN, chr back pain
Past Surgical History: Cholecystectomy and Orthopedic (Spinal surgery for scoliosis, status post spinal fusion, right knee replacement, partial left knee replacement)
Social History
Tobacco: Non-Smoker
Alcohol: None
Personal: Single
Living: Alone
Employment: Retired
Family History
Family History: Not Pertinent
Allergies / Home Medications
Allergy/AdvReac Type Severity Reaction Status Date / Time
adhesive tape Allergy sores Verified 08/14/24 21:02
latex Allergy Rash Verified 08/14/24 21:02
�Medication �Instructions �Recorded �Confirmed �Type
Dysport 1 dose INJ Q3M 03/09/19 08/15/24 History
ascorbic acid (vitamin C) 500 mg 1,000 mg PO DAILY 03/09/19 08/15/24 History
tablet (Vitamin C)
cholecalciferol (vitamin D3) 25 1,000 units PO DAILY 03/09/19 08/15/24 History
mcg (1,000 unit) tablet
clonazepam 0.5 mg tablet 0.25 mg PO HS 03/09/19 08/15/24 History
denosumab 60 mg/mL subcutaneous 60 mg SQ Q6M 03/09/19 08/15/24 History
syringe (Prolia)
loratadine 10 mg tablet 10 mg PO DAILYPRN PRN seasonal 03/09/19 08/15/24 History
allergies
multivitamin with folic acid 400 1 tab PO DAILY 03/09/19 08/15/24 History
mcg tablet (Tab-A-Jasper)
omeprazole 20 mg capsule,delayed 20 mg PO DAILY 03/09/19 08/15/24 History
release
polyvinyl alcohol-povidone (PF) 1 drops BOTH EYES QIDPRN PRN dry 03/09/19 08/15/24 History
1.4 %-0.6 % eye drops in a eye
dropperette (Refresh Classic (PF))
pregabalin 100 mg capsule 150 mg PO TID 03/09/19 08/15/24 History
propranolol 120 mg capsule,24 120 mg PO DAILY 03/09/19 08/15/24 History
hr,extended release
rizatriptan 10 mg disintegrating 10 mg PO DAILYPRN PRN migraine, 2 03/09/19 08/15/24 History
tablet hr intervals
losartan 25 mg tablet 25 mg PO QPM 04/21/20 08/15/24 History
atorvastatin 20 mg tablet 20 mg PO DAILY 08/15/24 08/15/24 History
naproxen sodium 220 mg capsule 440 mg PO BID PRN pain 08/15/24 08/15/24 History
(Aleve)
Review of Systems
-
All other systems: Negative unless noted
Physical Exam
Vital Signs
Vital Signs
Temp Pulse Resp BP Pulse Ox
98.0 F 75 18 131/65 98
08/16/24 07:31 08/16/24 15:34 08/16/24 15:34 08/16/24 15:34 08/16/24 15:34
Lab Results
WBC 11.4 10^3/uL (4.8-10.8) H 08/14/24 21:20
RBC 3.89 10^6/uL (4.20-5.40) L 08/14/24 21:20
Hgb 12.2 g/dL (12.0-16.0) 08/14/24 21:20
Hct 33.2 % (37.0-47.0) L 08/14/24 21:20
Plt Count 181 10^3/uL (130-400) 08/14/24 21:20
Sodium 130 mmol/L (135-145) L 08/16/24 07:10
Potassium 4.7 mmol/L (3.5-5.1) 08/16/24 07:10
Chloride 100 mmol/L (98-107) 08/16/24 07:10
Carbon Dioxide 24 mmol/L (22-30) 08/16/24 07:10
BUN 16 mg/dl (7-17) 08/16/24 07:10
Creatinine 0.6 mg/dL (0.6-1.0) 08/16/24 07:10
eGFR > 60.00 08/16/24 07:10
Glucose 114 mg/dl (70-99) H 08/16/24 07:10
Calcium 8.8 mg/dl (8.4-10.2) 08/16/24 07:10
Wfd-A-Thlaarcefxs Pept 585 pg/ml 08/15/24 05:21
Albumin 4.1 g/dl (3.5-5.0) 08/14/24 21:20
Physical Exam
General: Awake, Alert, Oriented, AOx3, No Distress and Nontoxic
HEENT: EOMI, Anicteric, Dentition Intact and Facial Symmetry
Respiratory: Clear, Normal Excursion and Nonlabored Respirations
Cardiac: S1/S2 and Regular Rate/Rhythm
Breast: Deferred by me
Abdomen: Soft, Nontender and Nondistended
Musculoskeletal: No Cyanosis and No Edema
Skin: No Rash
Neuro: Nonfocal/Grossly Intact
Psych: Mood/afflect pleasant, Insight/judgement good and Appropriate
Data Reviewed
-
Radiology: Report Reviewed by me and Discussed with Patient
Labs: Labs Reviewed by me and Discussed with Patient
Assessment/Plan
-
IMP:
Hyponatremia
Dizziness
HTN
Chr right knee pain
Anxiety
h/o migraine
Urinary urgency s/p botox-Dr Small
Plan:
A/w dizziness, sodium noted 124-felt to be symptomatic
acute on chr hyponatremia-Possible SIADH and exaggerated with high fluid intake and knee pain
U osmo high at 484, U na high post saline at 111
cortisol is low at 1.6-felt to have adrenal insufficiency and started on hydrocortisone by primary with endo f.u out pt
BP stable with out hypotension
sodium now improving to 130, cotn FR
TSH is normal
avoid NSAIDs use
follow labs
pain control
follow bladder scan to r/o retention post botox 4wks ago
[2024-08-16 16:06] VITALS: BP 131/65; PULSE 75; O2SAT 98
[2024-08-16] MEDS: LOVENOX 40 MG SC (17:22)
[2024-08-16] MEDS: ZOSTRIX-HP 0.075% CREAM 1 APPLIC TOPICAL ×2 (17:22→21:05)
[2024-08-16] MEDS: COZAAR 25 MG PO (17:22)
[2024-08-16] MEDS: CORTEF 5 MG PO (17:23)
[2024-08-16 23:43] VITALS: BP 131/76
[2024-08-17 06:51] LABS: Blood Urea Nitrogen 22 mg/dl (7-17); Calcium 8.9 mg/dl (8.4-10.2); Carbon Dioxide 28 mmol/L (22-30); Chloride 101 mmol/L (98-107); Estimated Creatinine Clearance 52 ml/min; Glucose 117 mg/dl (70-99); Magnesium 1.9 mg/dl (1.6-2.3); Potassium 4.7 mmol/L (3.5-5.1); Sodium 132 mmol/L (135-145); eGFR > 60.00
[2024-08-17 07:46] VITALS: BP 146/79
[2024-08-17] MEDS: LIPITOR 20 MG PO (08:40)
[2024-08-17] MEDS: LYRICA 150 MG PO (08:40)
[2024-08-17] MEDS: PROTONIX 40 MG PO (08:40)
[2024-08-17] MEDS: INDERAL LA 120 MG PO (08:41)
[2024-08-17] MEDS: CORTEF 10 MG PO (08:41)
[2024-08-17] MEDS: ZOSTRIX-HP 0.075% CREAM 1 APPLIC TOPICAL ×2 (08:41→14:41)
--- NOTE | 2024-08-17 09:19 | CM ---
Addendum entered by Gifty Peña RN 08/17/24 09:29:
Home with [facility] Pt fax [phone]
Original Note:
Pt eval yesterday = home with PT Pt refuses SNF.
Pt requested [facility] .
Pt declined SN in home.
Family to drive her home.
PLAN Home with [facility]
--- NOTE | 2024-08-17 11:10 | W.PN.HOSP.TC ---
Addendum entered and electronically signed by Jackie Cutler MD 08/17/24 13:56:
total DC time 40 min
Original Note:
Today's Communication/Plan
-
see A/P
DC today with HH
Assessment / Plan
Assessment / Plan
84-year-old female comes into the emergency department with complaints of dizziness that is worse with ambulation and has led to multiple falls at home. Ongoing symptoms for several months now. Prior outpatient MRI reported as unremarkable. CT of
the head is negative here. Neurological exam shows no focal abnormalities. Lab abnormalities notable for a sodium of 124 on admission but otherwise unremarkable. She is hemodynamically stable to hypertensive.
A/P:
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
Sodium level improved from 124 to 132 today
cont fluid restriction
am cortisol level low at 1.6, started hydrocortisone 15 mg daily, recc outpt Endo eval- pt informed
TSH WNL at 0.86
appreciate Renal input
# Dizziness, likely 2/2 above
No focal deficits on exam.
CT head from admission: No evidence of acute intracranial abnormality.
orthostatic VS WNL
PT OT [facility], however pt elected outpt PT
# HTN
continue losartan and propranolol
# Chronic R knee pain
trial of capsaicin cream
DVT PPX - Lovenox sq
code status - Full Code
Dispo: PT OT [facility], however pt elected outpt PT although it does not sound like pt or family understand what SNF involved. CM to explain.
updated son on the phone extensively
Anticipated Discharge: Today
Subjective/Interval History
-
Date of Service: August 17, 2024
Objective Data
-
Labs:
Laboratory Results
08/17/24
05:15
Sodium 132 L
Potassium 4.7
Chloride 101
Carbon Dioxide 28
BUN 22 H
Creatinine 0.6
Glucose 117 H
Calcium 8.9
Vital Signs:
Vital Signs
Temp Pulse Resp BP Pulse Ox
36.5 C 76 16 146/79 98
08/17/24 07:46 08/17/24 08:41 08/17/24 07:46 08/17/24 08:41 08/17/24 07:46
I&O
08/16/24 08/17/24 08/18/24
06:59 06:59 06:59
Intake Total 0 / 1769 720 / 720
Balance 0 1769 720 / 720
Review of Systems
-
History Source: Patient
All other systems: Reviewed and negative
Physical Exam
-
General: Well Developed, Well Nourished, No Apparent Distress, Comfortable and Conversant; Negative Respiratory Distress
HEENT: Normocephalic, Atraumatic, Nose Appears Normal and Ears Appear Normal; Negative Oxygen
Respiratory: Clear to Auscultation and Non Labored Respirations; Negative Accessory Resp Muscle Use
Cardiac: Regular Rhythm and S1/S2
GI: Soft, Nontender, Nondistended and Normal Bowel Sounds
Skin: Warm and Dry
Neuro: Awake, Alert and Oriented
Psych: Calm and Intact Judgement/Insight
Data Reviewed
-
CT Scan: Report Reviewed by me
Labs: Labs Reviewed by me
[2024-08-17 12:25] VITALS: BP 110/69
--- NOTE | 2024-08-17 13:30 | W.DCSUMMARY ---
Discharge Summary
Discharge Data
Date of Admission: 08/16/24
Date of Discharge: 08/17/24
-
Pending Results: No
Hospital Course
Principal Diagnosis:
Symptomatic Hyponatremia with dizziness/imbalance, due to SIADH with adrenal insufficiency
Chronic Diagnoses:�
Hypertension, on losartan and propranolol
Chronic Right knee pain. Started trial of capsaicin cream this admission
Consultations:�
Nephrology
Procedures:�
None
Clinical course:�
This is a 84-year-old female with past medical history as stated above, who presented with dizziness worse with ambulation resulting in multiple falls at home.
She has had extensive neurologic workup outpatient including MRI brain which were all were unrevealing.
Problem 1:
Symptomatic Hyponatremia with dizziness, due to SIADH with adrenal insufficiency.
Her sodium level was at 124 on admission, which improved to 132 on the day of discharge.
She can continue fluid restriction going forward for the SIADH.
It was noted that her am cortisol level was low at 1.6, hence she was started with hydrocortisone at 10 mg daily and 5 mg at bedtime.
She can continue such hydrocortisone dose until outpatient endocrinology eval/recommendation.
Her TSH was within normal limit at 0.86.
Although she was recommended for SNF per PT OT recommendation, however patient elected to go home with home health.
As for the rest of her medical problems, they were stable during her hospital stay.
Discharge Plan
-
Patient Disposition: Home with Home Care
Discharge Diagnosis/Procedures: Symptomatic Hyponatremia due to SIADH with likely adrenal insufficiency (am cortisol level low at 1.6)
Condition: Fair
Diet: As tolerated and Restrict fluids to 48 oz
Activity: As tolerated
Driving Restrictions: Not until seen by your Dr
Blood Work: BMP in 1 week with result to your PCP
Activity Restrictions/Additional Instructions:
Follow up with an brush material preparer outpatient
Referrals:
Aubrie Andrade MD [Family Provider] - in less than 1 week
Additional Discharge Medication Instructions: Continue hydrocortisone 10 mg daily and 5 mg at night
Continue capsaicin cream for your R knee pain
Prescriptions:
New
hydrocortisone 10 mg Tablet
10 mg PO DAILY Qty: 30 0RF
hydrocortisone 10 mg Tablet
5 mg PO QPM Qty: 30 0RF
capsaicin [Arthritis Pain Relief(capsaic)] 0.075 % Cream
1 applic topical QID Qty: 57 0RF
Continued
clonazepam 0.5 MG tablet
0.25 mg PO HS
ascorbic acid (vitamin C) [Vitamin C] 500 MG tablet
1,000 mg PO DAILY
rizatriptan 10 MG tablet,disintegrating
10 mg PO DAILYPRN PRN (Reason: migraine, 2 hr intervals)
omeprazole 20 MG capsule,delayed release(DR/EC)
20 mg PO DAILY
propranolol 120 MG capsule,extended release 24 hr
120 mg PO DAILY
loratadine 10 MG tablet
10 mg PO DAILYPRN PRN (Reason: seasonal allergies)
pregabalin 100 MG capsule
150 mg PO TID
Patient Comments:
04/21/20-increase direction due to knee surgery, patient lasted filled 01/28/2020 #270
cholecalciferol (vitamin D3) 1,000 UNITS tablet
1,000 units PO DAILY
Prolia 60 MG/ML syringe
60 mg SQ Q6M
multivitamin with folic acid [Tab-A-Jasper] 1 TABLET tablet
1 tab PO DAILY
Dysport
1 dose INJ Q3M
Patient Comments:
04/21/2020: injection in the neck for head tremor
Refresh Classic (PF) 10 DROPS dropperette
1 drops BOTH EYES QIDPRN PRN (Reason: dry eye)
losartan 25 MG tablet
25 mg PO QPM
naproxen sodium [Aleve] 220 mg Capsule
440 mg PO BID PRN (Reason: pain)
atorvastatin 20 mg Tablet
20 mg PO DAILY
Discharge Orders:
Discharge Patient (As Directed); Ordered 08/17/24
Ordered By: Jackie Cutler
Discharge Date and Time
Print Language: ROMANSH
[2024-08-17 14:29] VITALS: BP 152/79
== END 2024-08-17 15:19 | disposition home health service (06) | DRG 644 ==
LOC: 3 WEST ACU 13:29
PROVIDERS: Emergency Medicine; Hospitalist; Physician Assistant; ADMITTING PHYSICIAN Internal Medicine; ATTENDING PHYSICIAN Internal Medicine; CONSULT PHYSICIAN Internal Medicine; EMERGENCY PHYSICIAN Emergency Medicine; FAMILY PHYSICIAN Family Medicine
DX: E27.40 Unspecified adrenocortical insufficiency (principal); E22.2 Syndrome of inappropriate secretion of antidiuretic hormone; R42 Dizziness and giddiness; I10 Essential (primary) hypertension; G43.909 Migraine, unspecified, not intractable, without status migrainosus; R29.6 Repeated falls; E86.0 Dehydration; J98.4 Other disorders of lung; R13.10 Dysphagia, unspecified; E04.2 Nontoxic multinodular goiter; H91.92 Unspecified hearing loss, left ear; R68.89 Other general symptoms and signs; G89.29 Other chronic pain; I27.20 Pulmonary hypertension, unspecified; M25.561 Pain in right knee; G62.9 Polyneuropathy, unspecified; F41.9 Anxiety disorder, unspecified; K21.9 Gastro-esophageal reflux disease without esophagitis; R25.1 Tremor, unspecified; Z60.2 Problems related to living alone; Z96.653 Presence of artificial knee joint, bilateral; Z87.442 Personal history of urinary calculi; Z90.49 Acquired absence of other specified parts of digestive tract; Z98.1 Arthrodesis status; Z91.040 Latex allergy status; Z91.048 Other nonmedicinal substance allergy status; Z87.440 Personal history of urinary (tract) infections
CPT/HCPCS: 70450; 80048; 80053; 81003; 81015; 82533; 83735; 83880; 83935; 84300; 84443; 84484; 85025; 93005; 96360; 97116; 97129; 97163; 97167; 97530; 97535; 99285

== ENCOUNTER 2024-09-05 16:11 | Emergency (ER) | payer MEDICARE, OTHER, SELFPAY ==
[2024-09-05 16:13] VITALS: BP 160/87
--- NOTE | 2024-09-05 16:49 | ED.GENMED ---
History of Present Illness
General
Chief Complaint: Swelling
Time Seen by Provider: 09/05/24 16:30
History of Present Illness
History of Present Illness:
84-year-old female presents to the emergency department for evaluation of bilateral leg edema for the past 2 days. Denies any calf pain or tenderness at this time. No recent fevers or chills. She was hospitalized at the end of July for
hyponatremia, denies any similar symptoms
Past History
Past History
ED Past Medical History: HTN, Other (Hearing loss left ear, dry eye, thyroid nodules, difficulty swallowing, restrictive lung disease, head tremors, migraine, renal calculi, ovarian cyst) and Other
ED Past Surgical History: Gynecological (Ovarian cystectomy), Orthopedic (Left knee replacement, spinal surgery for scoliosis, spinal stenosis surgery, plates and neck, carpal tunnel release bilaterally) and Other (Read and agree with pshx)
Social History
Tobacco: Non-smoker
Alcohol: None
Drug: None
Personal: Single
Living: alone
Employment: Employed
Family History
Family History: Hypertension
Review of Systems
Review of Systems
Allergies reviewed?: Yes
All Other Systems: ROS reviewed and negative except as documented in HPI and ROS
Phy Exam
Physical Exam
Physical Exam:
GEN: Well appearing, NAD, WDWN
HEENT: Oral mucosa moist, no scleral icterus
Cardiac: Regular rate
Lung: No respiratory distress, no tachypnea
MSK: No gross deformity or injuries. Mild asymmetry of the left calf musculature compared to the right but no obvious pitting edema, strong dorsalis pedis pulses bilaterally
Skin: Good color, no pallor or jaundice, no rashes
Neuro: AO x3, moves all extremities freely
Psych: Calm, cooperative
Scores
Heart Failure Risk
Heart Failure Risk Score: Not Applicable
Course
Orders/Labs/Results
Orders:
Orders
09/05/24 16:49
Venous Doppler Lwr Ext Bilat [US Periph Venous LOWER Ext Nigel] Urgent
Comment:
Reason For Exam: BLE edema
Vital Signs
Initial and Last Documented VS:
Initial Vital Signs
Temp Pulse Resp BP Pulse Ox
98.1 F 84 16 160/87 98
09/05/24 16:13 09/05/24 16:13 09/05/24 16:13 09/05/24 16:13 09/05/24 16:13
Last Documented Vital Signs
Temp Pulse Resp BP Pulse Ox
98.1 F 75 16 160/87 96
09/05/24 16:13 09/05/24 18:00 09/05/24 18:00 09/05/24 16:13 09/05/24 17:15
MDM/Problems Addressed
MDM/Problems Addressed:
Imaging unremarkable, asymmetry of the left calf is most likely due to the noticeable Jones's cyst on ultrasound. Discussed supportive care
*Critical Care Note
Total Time (30-74mins, 75-104mins- exclusive of procedures): Not Applicable
ED Attending Note
-
Portions of this chart may have been created with voice recognition software.� Occasional wrong word or��sound alike� substitutions may have occurred due to the inherent limitations of voice recognition software.
Discharge Plan
Departure
Patient Disposition: Home (Routine Discharge)
Date of Disposition: 09/05/24
Time of Disposition: 19:26
Patient with high blood pressure during this ER visit?: No
Discharge Problem:
Leg edema
Instructions: Dependent Edema (DC)
Prescriptions:
No Action
clonazepam 0.5 MG tablet
0.25 mg PO HS
ascorbic acid (vitamin C) [Vitamin C] 500 MG tablet
1,000 mg PO DAILY
rizatriptan 10 MG tablet,disintegrating
10 mg PO DAILYPRN PRN (Reason: migraine, 2 hr intervals)
omeprazole 20 MG capsule,delayed release(DR/EC)
20 mg PO DAILY
propranolol 120 MG capsule,extended release 24 hr
120 mg PO DAILY
loratadine 10 MG tablet
10 mg PO DAILYPRN PRN (Reason: seasonal allergies)
pregabalin 100 MG capsule
150 mg PO TID
Patient Comments:
04/21/20-increase direction due to knee surgery, patient lasted filled 01/28/2020 #270
cholecalciferol (vitamin D3) 1,000 UNITS tablet
1,000 units PO DAILY
Prolia 60 MG/ML syringe
60 mg SQ Q6M
multivitamin with folic acid [Tab-A-Jasper] 1 TABLET tablet
1 tab PO DAILY
Dysport
1 dose INJ Q3M
Patient Comments:
04/21/2020: injection in the neck for head tremor
Refresh Classic (PF) 10 DROPS dropperette
1 drops BOTH EYES QIDPRN PRN (Reason: dry eye)
losartan 25 MG tablet
25 mg PO QPM
naproxen sodium [Aleve] 220 mg Capsule
440 mg PO BID PRN (Reason: pain)
atorvastatin 20 mg Tablet
20 mg PO DAILY
hydrocortisone 10 mg Tablet
10 mg PO DAILY Qty: 30 0RF
hydrocortisone 10 mg Tablet
5 mg PO QPM Qty: 30 0RF
capsaicin [Arthritis Pain Relief(capsaic)] 0.075 % Cream
1 applic topical QID Qty: 57 0RF
Referrals:
UNKNOWN - PT NOT,INTERVIEWE [Family Provider] -
Interventions
Interventions:
*Nursing Disposition Last Done: 09/05/24 20:20
ED- Cardiac Assessment Last Done: 09/05/24 17:00
ED- Pulmonary Assessment Last Done: 09/05/24 17:00
Discharge Date and Time
Discharge Date/Time: 09/05/24 20:20
Print Language: JAPANESE
== END 2024-09-05 20:20 | disposition home or self-care (01) ==
LOC: EMR 16:11
PROVIDERS: EMERGENCY PHYSICIAN Emergency Medicine
DX: R60.0 Localized edema (principal); M71.22 Synovial cyst of popliteal space [Baker], left knee; I10 Essential (primary) hypertension; J98.4 Other disorders of lung; R25.1 Tremor, unspecified; G43.909 Migraine, unspecified, not intractable, without status migrainosus; M41.9 Scoliosis, unspecified; M48.00 Spinal stenosis, site unspecified; H04.129 Dry eye syndrome of unspecified lacrimal gland; E04.2 Nontoxic multinodular goiter; Z91.040 Latex allergy status; Z91.048 Other nonmedicinal substance allergy status
CPT/HCPCS: 99284; 93970

== ENCOUNTER → 2024-09-06 10:18 | Outpatient (REF) | payer MEDICARE, OTHER, SELFPAY | LOC: RAD 10:18 | PROVIDERS: ATTENDING PHYSICIAN Physician Assistant Surgical | DX: M25.561 Pain in right knee (principal); M25.562 Pain in left knee | CPT/HCPCS: 78315; A9503 ==

== ENCOUNTER 2024-12-30 05:35 | Emergency (ER) | payer MEDICARE, OTHER, SELFPAY ==
[2024-12-30] VITALS (10 sets, daily range): BP systolic 135–181; BP diastolic 78–135; O2SAT 94
--- NOTE | 2024-12-30 06:06 | ED.GENMED ---
History of Present Illness
General
Chief Complaint: Fall
Source: patient
Exam Limitations: none
Time Seen by Provider: 12/30/24 06:04
Nursing documentation reviewed up to this point in time: agreed with
History of Present Illness
History of Present Illness:
Note:
CHIEF COMPLAINT(S)
Neck pain and difficulty swallowing following a fall.
HISTORY OF PRESENT ILLNESS
The patient is an 84-year-old female who presents with complaints of neck pain and difficulty swallowing after a fall. The patient reported that she hit her head during the fall. She describes the neck discomfort as soreness rather than sharp pain
and localizes it to the right side of her neck, especially sensitive to palpation. The patient noted the fall occurred while she was brushing in the bathroom. She did not lose consciousness but has experienced frequent falls recently, mentioning
falling two to three times in the past week, which makes her feel unsafe at home. The patient expressed feeling off-balanced and has bruises from past falls.
The patient does not have any pain in her hips or legs. She is able to move her limbs without difficulty but feels generally unsteady. There is concern regarding her safety at home as she lives alone and lacks familial support nearby. The patient
also expressed difficulty in accessing her phone, complicating communication with family or emergency services.
She mentioned that case management and physical therapy evaluations have been planned, and she expressed a need for assistance in safely managing her environment at home.
ADDITIONAL HISTORY OBTAINED FROM SOURCES OTHER THAN THE PATIENT
Per EMS, the patient did not report losing consciousness after her fall. The patient was noted to have some abrasions and bruising, particularly on the lower legs and right elbow.
PHYSICAL EXAM
General: Alert, no acute distress.
Skin: Multiple bruises noted on lower legs and a contusion on the right elbow. Otherwise warm and dry.
Head: Normocephalic, atraumatic.
Neck: T-collar in place, no midline cervical spine tenderness.
Eyes, Nose, Mouth and Throat: Oral mucosa moist.
Cardiovascular: Normal peripheral perfusion, no S3, S4, or murmurs.
Respiratory: Respirations are non-labored, clear bilaterally.
Gastrointestinal: Abdomen nondistended, soft, non-tender, no bruising.
Musculoskeletal: Normal range of motion, no significant weakness.
Neurological: Alert and oriented to person, place, and time, no focal neurological deficits observed.
Psychiatric: Cooperative, appropriate mood and affect.
PROBLEM LIST
Acute:
- Neck pain post-fall
- Difficulty swallowing
- Frequent falls
PLAN
- Await radiology read on cervical spine CT to rule out any injury.
- Engage physical therapy for assessment and assistance with balance training.
- Involve case management to evaluate the patients home situation and consider interventions to improve safety.
- Explore options for communication support since the patient has misplaced her phone, complicating her ability to reach family or emergency services.
DIFFERENTIAL DIAGNOSIS
The Differential Diagnosis includes, in no particular order and is not limited to:
1. Cervical spine injury
2. Esophageal spasm or injury
3. Vestibular dysfunction
4. Neurological impairment affecting balance
5. Sequelae of dehydration or electrolyte imbalance
6. Transient ischemic attack or minor stroke
7. Inner ear disorder
8. Orthostatic hypotension
9. Parkinsons disease
10. Anxiety-related balance issues
CARE-UPDATE
12/30/24 - 08:10
CT head and cervical spine show no acute findings. Patient remains stable. Considering discharge options: potential home care with appropriate support or placement in a fpc. Plan to consult with physical therapy and case management to
assess feasibility and determine the most suitable care plan.
CARE-UPDATE
12/30/24 - 10:22
Patient presents with no acute traumatic findings or neurological deficits. The plan for discharge home has been revised. Discussion with the physical therapy team concluded that the patient would benefit from a stay in a rehabilitation facility to
aid recovery. Case management will coordinate the transfer to the rehab facility as recommended by physical therapy.
Disposition:
SUMMARY OF ENCOUNTER
The patient, an 84-year-old female, presented to the emergency department following a fall at home, complaining of neck pain and difficulty swallowing. She experienced neck soreness, especially on the right side, and reported a history of frequent
falls, feeling off-balance, and bruising mainly on the lower legs and right elbow. The patient expressed safety concerns due to living alone and difficulty reaching out for help. Radiology reports showed no acute findings on a CT head and cervical
spine. Considering her unstable gait and frequent falls, a decision was made to transfer her to a rehabilitation facility for safety and further support.
DISPOSITION
Transfer to a rehabilitation facility.
PLAN
- Facilitate transfer to a rehabilitation facility to enhance safety and balance training.
- Case management to ensure safe home evaluation once discharged from the rehabilitation facility.
INDEPENDENT REVIEW OF LABS AND INTERPRETATION OF TESTS
- My independent interpretation of CT head and cervical spine showed no acute traumatic findings.
MEDICAL DECISION MAKING
-Complexity of Data Reviewed: DDx list includes cervical spine injury, esophageal spasm or injury, vestibular dysfunction, neurological impairment affecting balance, sequelae of dehydration or electrolyte imbalance, transient ischemic attack or
minor stroke, inner ear disorder, orthostatic hypotension, Parkinsons disease, anxiety-related balance issues.
-Data:
Category 1
Clinical information was obtained from an independent historian, namely EMS, who noted the patient did not lose consciousness during the fall and had bruising on the lower legs and right elbow.
Category 3
Discussion of management with other healthcare providers including the physical therapy team and case management to evaluate the safest discharge possible and coordination of rehab facility placement.
DIAGNOSIS
- Unspecified neck pain following trauma (ICD-10: M54.2)
- Repeated falls (ICD-10: R29.6)
Past History
Past History
ED Past Medical History: HTN, Other (Hearing loss left ear, dry eye, thyroid nodules, difficulty swallowing, restrictive lung disease, head tremors, migraine, renal calculi, ovarian cyst) and Other
ED Past Surgical History: Gynecological (Ovarian cystectomy), Orthopedic (Left knee replacement, spinal surgery for scoliosis, spinal stenosis surgery, plates and neck, carpal tunnel release bilaterally) and Other (Read and agree with psx)
Social History
Tobacco: Non-smoker
Alcohol: None
Drug: None
Personal: Single
Living: alone
Employment: Employed
Family History
Family History: Hypertension
Phy Exam
Physical Exam
Physical Exam:
.
Course
Orders/Labs/Results
Orders:
Orders
12/30/24 05:51
CT Cervical Spine W/o Iv Contr Urgent
Comment:
Reason For Exam: fall
CT Head W/o Iv Contrast Urgent
Comment:
Reason For Exam: fall
12/30/24 06:38
Case Management Consult ONCE
Case Management Consult: Usp Placement
Physical Therapy Consult [Pt Eval And Treat] Urgent
Treatment: evaluate ambulation
Activity Level: With Assistance
Vital Signs
Initial and Last Documented VS:
Initial Vital Signs
Temp Pulse Resp BP Pulse Ox
98.6 F 80 18 170/95 99
12/30/24 05:37 12/30/24 05:37 12/30/24 05:37 12/30/24 05:37 12/30/24 05:37
Last Documented Vital Signs
Temp Pulse Resp BP Pulse Ox
98.6 F 80 18 147/135 98
12/30/24 05:37 12/30/24 05:37 12/30/24 05:37 12/30/24 10:00 12/30/24 10:06
*Radiology
Radiology exam reviewed: radiology read reviewed (NAME: ROSINA PAGAN DATE OF EXAM: 12/30/2024 Patient No: [id number] Physician: WILEY Date of : 1940 Past Medical History (entered by Technologist): Reason For Exam (entered
by Technologist): Other Notes (entered by Technologist): Pt arrives via EMS from home, was walking )
*Pulse Oximetry
SaO2: 99
Oxygen Mode of Delivery: Room air
Patient hypoxic: no
*Critical Care Note
Total Time (30-74mins, 75-104mins- exclusive of procedures): Not Applicable
ED Attending Note
-
Portions of this chart may have been created with voice recognition software.� Occasional wrong word or��sound alike� substitutions may have occurred due to the inherent limitations of voice recognition software.
Discharge Plan
Departure
Patient Disposition: Usp/SNF
Date of Disposition: 12/30/24
Time of Disposition: 09:54
Patient with high blood pressure during this ER visit?: Yes
Condition: Fair
Discharge Problem:
Multiple falls, Skin tear of right elbow without complication
Prescriptions:
No Action
clonazepam 0.5 MG tablet
0.25 mg PO HS
ascorbic acid (vitamin C) [Vitamin C] 500 MG tablet
1,000 mg PO DAILY
rizatriptan 10 MG tablet,disintegrating
10 mg PO DAILYPRN PRN (Reason: migraine, 2 hr intervals)
omeprazole 20 MG capsule,delayed release(DR/EC)
20 mg PO DAILY
propranolol 120 MG capsule,extended release 24 hr
120 mg PO DAILY
loratadine 10 MG tablet
10 mg PO DAILYPRN PRN (Reason: seasonal allergies)
pregabalin 100 MG capsule
150 mg PO TID
Patient Comments:
04/21/20-increase direction due to knee surgery, patient lasted filled 01/28/2020 #[id number]
cholecalciferol (vitamin D3) 1,000 UNITS tablet
1,000 units PO DAILY
Prolia 60 MG/ML syringe
60 mg SQ Q6M
multivitamin with folic acid [Tab-A-Jasper] 1 TABLET tablet
1 tab PO DAILY
Dysport
1 dose INJ Q3M
Patient Comments:
04/21/2020: injection in the neck for head tremor
Refresh Classic (PF) 10 DROPS dropperette
1 drops BOTH EYES QIDPRN PRN (Reason: dry eye)
losartan 25 MG tablet
25 mg PO QPM
naproxen sodium [Aleve] 220 mg Capsule
440 mg PO BID PRN (Reason: pain)
atorvastatin 20 mg Tablet
20 mg PO DAILY
hydrocortisone 10 mg Tablet
10 mg PO DAILY Qty: 30 0RF
hydrocortisone 10 mg Tablet
5 mg PO QPM Qty: 30 0RF
capsaicin [Arthritis Pain Relief(capsaic)] 0.075 % Cream
1 applic topical QID Qty: 57 0RF
Referrals:
Emmanuel Franks MD [Family Provider, Family Practice]
Interventions
Interventions:
*Risk Screen - Suicide Last Done: 12/30/24 05:37
*General Assessment Last Done: 12/30/24 05:37
*Neglect/Abuse Screening Last Done: 12/30/24 05:37
*ED- Fall Risk Assessment Last Done: 12/30/24 05:47
*ED COVID-19 Vaccine History Last Done: 12/30/24 05:37
ED-Musculoskeletal Assessment Last Done: 12/30/24 06:11
ED- Neurological Assessment Last Done: 12/30/24 06:11
ED-Skin Assessment Last Done: 12/30/24 06:11
Discharge Date and Time
Print Language: MONTENEGRIN
--- NOTE | 2024-12-30 08:30 | CM ---
Addendum entered by Roberta Montalvo 12/30/24 12:41:
Telehealth visit completed with Dr Shelton. She will send her note to [facility] within 20 minutes. Airam updated. Pictures of pt's insurance cards sent to Tashia at [facility] per her request. Number for report is [phone]
Addendum entered by Roberta Montalvo 12/30/24 10:31:
Per Airam, [facility] I called her PCP Dr Franks's office, Dr Shelton will do telehealth visit at 12 noon today. Pt does not have SNF preference, referrals sent to , [facility], [facility] [place] and [facility]
[place].
Original Note:
CM reviewed chart and met with pt bedside in ED. Lives alone, son also lives there but travels a lot for work, he is away now.
Multistory home, [address], has first floor full BA, second floor BR, slept on the couch last night as she has fallen several times already this week.
Independent in ADLs, personal care and ambulation. Has been using RW more this week, also has multiprong cane.
Hx home PT/OT with [facility], last seen after July 2024 admission
She does have life alert and neighbors who check on her but does not feel safe going home.
Discussed SNF and requirement for 3 night inpt admission stay for SNF to be covered by Medicare, also discussed paying OOP.
Awaiting PT recommendations. RN updated.
[2024-12-30 13:01] LABS: COVID-19 Antigen Negative (Negative)
== END 2024-12-30 14:43 ==
LOC: EMR 05:35
PROVIDERS: EMERGENCY PHYSICIAN Emergency Medicine; FAMILY PHYSICIAN Family Medicine
DX: S51.011A Laceration without foreign body of right elbow, initial encounter (principal); R29.6 Repeated falls; I10 Essential (primary) hypertension; J84.9 Interstitial pulmonary disease, unspecified; H91.92 Unspecified hearing loss, left ear; W01.0XXA Fall on same level from slipping, tripping and stumbling without subsequent striking against object, initial encounter; Y92.002 Bathroom of unspecified non-institutional (private) residence as the place of occurrence of the external cause; Z91.81 History of falling; Z96.652 Presence of left artificial knee joint; Z82.49 Family history of ischemic heart disease and other diseases of the circulatory system
CPT/HCPCS: 99284; 70450; 72125; 87811

== ENCOUNTER → 2025-02-23 10:32 | Outpatient (REF) | payer OTHER, MEDICARE, SELFPAY ==
[2025-02-23 11:16] LABS: Hematocrit 32.8 % (37.0-47.0); Hemoglobin 11.2 g/dL (12.0-16.0); Mean Corp Hgb Conc. 34.1 g/dL (33.0-37.0); Mean Corpuscular Volume 93.2 fL (81.0-99.0); Platelet Count 144 10^3/uL (130-400); Red Cell Dist. Width 14.1 % (11.5-14.5)
[2025-02-23 11:35] LABS: ALT (SGPT) 30 U/L (0-35); AST (SGOT) 24 U/L (14-36); Albumin 4.1 g/dl (3.5-5.0); Alkaline Phosphatase 33 U/L (38-126); Blood Urea Nitrogen 15 mg/dl (7-17); Calcium 9.2 mg/dl (8.4-10.2); Carbon Dioxide 30 mmol/L (22-30); Chloride 101 mmol/L (98-107); Glucose 92 mg/dl (70-99); Potassium 4.2 mmol/L (3.5-5.1); Sodium 136 mmol/L (135-145); Total Protein 5.7 g/dl (6.3-8.2); eGFR > 60.00
== END ==
LOC: OLABN 10:32
PROVIDERS: ATTENDING PHYSICIAN Student in an Organized Health Care Education/Training Program
DX: I10 Essential (primary) hypertension (principal)
CPT/HCPCS: 36415; 80053; 85027

== ENCOUNTER 2025-02-23 18:33 | Emergency (ER) | payer MEDICARE, OTHER, SELFPAY ==
[2025-02-23 18:47] VITALS: BP 134/66
[2025-02-23 18:52] VITALS: BMI 22.4
[2025-02-23 19:00] VITALS: BP 143/66
[2025-02-23 19:28] VITALS: BP 148/56
--- NOTE | 2025-02-23 19:47 | ED.GENMED ---
History of Present Illness
General
Chief Complaint: Numbness
Source: patient
Exam Limitations: none
Time Seen by Provider: 02/23/25 19:32
History of Present Illness
History of Present Illness:
See MDM
Past History
Past History
ED Past Medical History: HTN, Other (Hearing loss left ear, dry eye, thyroid nodules, difficulty swallowing, restrictive lung disease, head tremors, migraine, renal calculi, ovarian cyst) and Other
ED Past Surgical History: Gynecological (Ovarian cystectomy), Orthopedic (Left knee replacement, spinal surgery for scoliosis, spinal stenosis surgery, plates and neck, carpal tunnel release bilaterally) and Other (Read and agree with psx)
Social History
Tobacco: Non-smoker
Alcohol: None
Drug: None
Personal: Single
Living: alone
Employment: Employed
Family History
Family History: Hypertension
Phy Exam
Physical Exam
Physical Exam:
See MDM
Scores
NIH Stroke Score
Level of Consciousness: 0 - Alert
LOC Questions: 0-Answers both correctly
LOC Commands: 0-Performs both correctly
Best Horizontal Gaze: 0-Normal
Visual Aragon: 0=Normal, no visual loss
Facial Palsy: 0=Normal, symmetrical
Motor - Right Arm: 0=No drift 10 seconds
Motor - Left Arm: 0=No drift 10 seconds
Motor - Right Le-No drift 5 seconds
Motor - Left Le-No drift 5 seconds
Limb Ataxia: 0-Absent
Sensation: 0-Normal
Best Language: 0-No aphasia
Dysarthria: 0-Normal
Extinction and Inattention: 0-No abnormality
NIH Total Score:: 0
Course
Orders/Labs/Results
Orders:
Orders
02/23/25 19:47
CT Head W/o Iv Contrast Urgent
Comment:
Reason For Exam: intermittent R side numbness
02/23/25 20:21
Complete Blood Count/With Diff Urgent
Comprehensive Metabolic Panel Urgent
Magnesium Urgent
02/23/25 21:40
Magnesium Oxide 400 mg PO NOW STA
02/23/25 21:45
Magnesium Sulfate 1 grams 0.9% Sodium Chloride 100 ml [Nss] 100 ml IV ONCE
Abnormal Lab Results
02/23/25
20:21
RBC 3.43 L 10^6/uL
(4.20-5.40)
Hgb 10.6 L g/dL
(12.0-16.0)
Hct 31.1 L %
(37.0-47.0)
Absolute Lymphs (auto) 0.7 L 10^3/uL
(1.2-3.4)
Absolute Monos (auto) 0.7 H 10^3/uL
(0.1-0.6)
Neutrophils % 77.2 H %
(42.2-75.2)
Lymphocytes % 10.3 L %
(20.5-51.1)
Monocytes % 10.3 H %
(1.7-9.3)
Carbon Dioxide 31 H mmol/L
(22-30)
BUN 19 H mg/dl
(7-17)
Glucose 131 H mg/dl
(70-99)
Magnesium 1.5 L mg/dl
(1.6-2.3)
Total Protein 6.0 L g/dl
(6.3-8.2)
02/23/25 20:21
02/23/25 20:21
Vital Signs
Initial and Last Documented VS:
Initial Vital Signs
Temp Pulse Resp BP Pulse Ox
98.7 F 84 18 134/66 98
02/23/25 18:47 02/23/25 18:47 02/23/25 18:47 02/23/25 18:47 02/23/25 18:47
Last Documented Vital Signs
Temp Pulse Resp BP Pulse Ox
98.7 F 79 23 140/51 97
02/23/25 19:00 02/23/25 21:30 02/23/25 21:30 02/23/25 20:00 02/23/25 21:30
MDM/Problems Addressed
Differential Diagnosis Includes:
Note:
CHIEF COMPLAINT(S)
Numbness in the right foot extending up to the knee and numbness in the right hand.
HISTORY OF PRESENT ILLNESS
The patient is an 85-year-old female with a known history of neuropathy, who presents with numbness in the right foot extending up to the knee, which occurred earlier today while either getting up or sitting down during an event. She reports that
her right foot felt numb for approximately an hour, during which efforts to alleviate the numbness, such as shaking, were unsuccessful. Additionally, she experienced numbness in her right hand starting when she attempted to eat, which led her to
drop a fork. Both feet were involved in the numbness, but the right side did not have increased severity compared to the left.
She describes a history of high blood pressure, with a recent episode where her blood pressure dropped to 100, which she regarded as unusually low. Her blood pressure was noted to increase again the following morning. She reports the ongoing use of
Lyrica for neuropathy in her legs and has a history of surgical intervention with rods placed in her back, which she associates with previous onset leg symptoms managed by Lyrica.
In the past, her medications including Lyrica were adjusted abruptly by another healthcare provider without her primary care physicians consultation, which was not well-tolerated. She reports her current medication regimen for managing her condition.
Additionally, she reports feeling generally unwell for approximately a month, with difficulties in walking. Imaging, such as a CT scan, was done about a year ago with no abnormalities found. The patient is concerned about possible stroke given the
nature of her symptoms.
PAST MEDICAL AND SURIGICAL HISTORY
History of neuropathy and surgical placement of rods in the back.
CHRONIC MEDICAL CONDITIONS SIGNIFICANTLY AFFECTING CARE
Neuropathy managed with Lyrica.
SOCIAL DETERMINANTS AFFECTING HEALTH
The patient mentions previous financial concerns relating to healthcare provider mismanagement of her medications without proper consultation with her own doctors.
MEDICATIONS
Lyrica (dose not specified, used for neuropathy in the legs), and other unspecified medications which were recently adjusted by a previous healthcare provider.
PHYSICAL EXAM
General: Alert, no acute distress.
Skin: Warm, dry.
Head: Normocephalic, atraumatic
Neck: Appears supple, trachea midline.
Eyes, Ears, Nose, Mouth, and Throat: Oral mucosa moist.
Cardiovascular: No signs of cyanosis. Regular rate and rhythm
Respiratory: Respirations are non-labored.
Abdomen: Non-distended
Musculoskeletal: No deformities
Neurological: No focal neurological deficit observed. Sensation grossly intact to all extremities
Psychiatric: Cooperative, appropriate mood and affect.
PROBLEM LIST
Acute: Numbness in extremities.
PLAN
1. Obtain a computed tomography (CT) scan of the head to rule out acute pathology such as stroke, given bilateral limb involvement and history.
2. Continue current medications including Lyrica, while advising follow-up for potential medication adjustments with the patients regular healthcare provider.
3. Consider laboratory tests, including electrolyte panels to rule out secondary causes like electrolyte imbalances.
4. Discuss findings with the patient and address any immediate concerns, with provisions to inform family members as necessary.
DIFFERENTIAL DIAGNOSIS
The Differential Diagnosis includes, in no particular order and is not limited to:
1. Peripheral neuropathy exacerbation
2. Stroke or transient ischemic attack
3. Electrolyte imbalance
4. Medication side effects or withdrawal
5. Spinal cord compression
6. Diabetic neuropathy
7. Multiple sclerosis
8. Cervical myelopathy
9. Radiculopathy
10. Anxiety-induced symptoms
SUMMARY OF ENCOUNTER
The patient, an 85-year-old female with a history of neuropathy, presented to the emergency department due to numbness in the right foot extending to the knee and the right hand. Initial lab results revealed a low magnesium level, which is likely
exacerbating her neuropathy symptoms. A dose of magnesium was administered to address this deficiency. The patient expressed comfort in being discharged and was stable for outpatient management.
DISPOSITION
Discharge.
ASSESSMENT
The patients numbness in the extremities is likely due to exacerbation of neuropathy due to a low magnesium level.
PLAN
1. Administer intravenous magnesium to correct the deficiency.
2. Advise the patient to follow up with her primary care provider for further evaluation and monitoring of magnesium levels and neuropathy symptoms.
INDEPENDENT REVIEW OF LABS AND INTERPRETATION OF TESTS
My independent review of the laboratory tests indicates a low magnesium level, contributing to the patients neuropathy symptoms.
My independent interpretation of the CT scan of the head indicates no acute pathology.
FOLLOW-UP INSTRUCTIONS
Please call the office immediately to schedule a follow-up visit with your primary care provider to evaluate magnesium levels and neuropathy management.
MEDICATION RECONCILIATION
Magnesium provided as an emergency treatment in the emergency department.
MEDICAL DECISION MAKING
-Complexity of Data Reviewed: Chronic conditions affecting care include a history of neuropathy. Differential diagnosis included peripheral neuropathy exacerbation and electrolyte imbalance.
-Data:
Category 1
Non-emergency department records reviewed: Reviewed patients history of magnesium deficiency and neuropathy.
Category 2
My independent interpretation of the CT head shows no acute pathology.
-Risk:
Consideration of Admission/Observation: Escalation of care including admission/observation was considered given the complexity and risk of the patients presenting complaint, exam findings, and underlying comorbidities. However, ultimately the
patient is deemed safe for outpatient management with close follow-up. Reasoning: Workup reassuring, does not reveal any acute life-threatening processes, patients symptoms well controlled upon reevaluation, reexamination is reassuring, vitals are
stable, patient agrees with discharge, reliable for follow-up.
DIAGNOSIS
Peripheral Neuropathy, unspecified (ICD-10: G62.9)
Hypomagnesemia (ICD-10: E83.42)
*Pulse Oximetry
SaO2: 98
Oxygen Mode of Delivery: Room air
Patient hypoxic: no
*Critical Care Note
Total Time (30-74mins, 75-104mins- exclusive of procedures): Not Applicable
ED Attending Note
-
Portions of this chart may have been created with voice recognition software.� Occasional wrong word or��sound alike� substitutions may have occurred due to the inherent limitations of voice recognition software.
Discharge Plan
Departure
Patient Disposition: Home (Routine Discharge)
Date of Disposition: 02/23/25
Time of Disposition: 21:21
Patient with high blood pressure during this ER visit?: Yes
Discharge Problem:
Hypomagnesemia
Instructions: Hypomagnesemia, BLOOD PRESSURE
Prescriptions:
No Action
clonazepam 0.5 MG tablet
0.25 mg PO HS
ascorbic acid (vitamin C) [Vitamin C] 500 MG tablet
1,000 mg PO DAILY
rizatriptan 10 MG tablet,disintegrating
10 mg PO DAILYPRN PRN (Reason: migraine, 2 hr intervals)
omeprazole 20 MG capsule,delayed release(DR/EC)
20 mg PO DAILY
propranolol 120 MG capsule,extended release 24 hr
120 mg PO DAILY
loratadine 10 MG tablet
10 mg PO DAILYPRN PRN (Reason: seasonal allergies)
pregabalin 100 MG capsule
150 mg PO TID
Patient Comments:
04/21/20-increase direction due to knee surgery, patient lasted filled 01/28/2020 #270
cholecalciferol (vitamin D3) 1,000 UNITS tablet
1,000 units PO DAILY
Prolia 60 MG/ML syringe
60 mg SQ Q6M
multivitamin with folic acid [Tab-A-Jasper] 1 TABLET tablet
1 tab PO DAILY
Dysport
1 dose INJ Q3M
Patient Comments:
04/21/2020: injection in the neck for head tremor
Refresh Classic (PF) 10 DROPS dropperette
1 drops BOTH EYES QIDPRN PRN (Reason: dry eye)
losartan 25 MG tablet
25 mg PO QPM
naproxen sodium [Aleve] 220 mg Capsule
440 mg PO BID PRN (Reason: pain)
atorvastatin 20 mg Tablet
20 mg PO DAILY
hydrocortisone 10 mg Tablet
10 mg PO DAILY Qty: 30 0RF
hydrocortisone 10 mg Tablet
5 mg PO QPM Qty: 30 0RF
capsaicin [Arthritis Pain Relief(capsaic)] 0.075 % Cream
1 applic topical QID Qty: 57 0RF
Referrals:
Juan Antonio Lal DO [Family Provider, Family Practice]
Activity Restrictions/Additional Instructions:
Please return for any worsening symptoms.
You may return at any time if you have further concerns.
Please follow up with your doctor at the first available appointment, preferably this week.
Thank you for choosing [facility].
Interventions
Interventions:
*Risk Screen - Suicide Last Done: 02/23/25 18:54
*General Assessment Last Done: 02/23/25 18:54
*Neglect/Abuse Screening Last Done: 02/23/25 18:54
*ED COVID-19 Vaccine History Last Done: 02/23/25 18:54
*ED Influenza Vaccine History Last Done: 02/23/25 18:54
ED- Neurological Assessment Last Done: 02/23/25 19:14
Discharge Date and Time
Print Language: HONDURAN
[2025-02-23 20:00] VITALS: BP 140/51
[2025-02-23 20:30] LABS: Hematocrit 31.1 % (37.0-47.0); Hemoglobin 10.6 g/dL (12.0-16.0); Mean Corp Hgb Conc. 34.1 g/dL (33.0-37.0); Mean Corpuscular Volume 90.7 fL (81.0-99.0); Nucleated Red Blood Cells % 0 %; Platelet Count 169 10^3/uL (130-400); Red Cell Dist. Width 14.1 % (11.5-14.5)
[2025-02-23 20:44] LABS: ALT (SGPT) 30 U/L (0-35); AST (SGOT) 25 U/L (14-36); Albumin 4.2 g/dl (3.5-5.0); Alkaline Phosphatase 40 U/L (38-126); Blood Urea Nitrogen 19 mg/dl (7-17); Calcium 9.6 mg/dl (8.4-10.2); Carbon Dioxide 31 mmol/L (22-30); Chloride 98 mmol/L (98-107); Estimated Creatinine Clearance 51 ml/min; Glucose 131 mg/dl (70-99); Magnesium 1.5 mg/dl (1.6-2.3); Potassium 4.1 mmol/L (3.5-5.1); Sodium 135 mmol/L (135-145); Total Protein 6.0 g/dl (6.3-8.2); eGFR > 60.00
[2025-02-23] MEDS: MAGNESIUM OXIDE 400 MG PO (21:58)
[2025-02-23 22:05] VITALS: BP 148/85
== END 2025-02-23 23:40 | disposition home or self-care (01) ==
LOC: EMR 18:33
PROVIDERS: EMERGENCY PHYSICIAN Student in an Organized Health Care Education/Training Program; FAMILY PHYSICIAN Student in an Organized Health Care Education/Training Program
DX: E83.42 Hypomagnesemia (principal); I10 Essential (primary) hypertension; G62.9 Polyneuropathy, unspecified; Z79.899 Other long term (current) drug therapy
CPT/HCPCS: 99284; 70450; 80053; 83735; 85025

== ENCOUNTER → 2025-03-03 16:36 | Outpatient (REF) | payer OTHER, MEDICARE, SELFPAY ==
[2025-03-03 19:03] LABS: Urine Character Cloudy (Clear)
[2025-03-03 19:25] LABS: Urine Red Blood Cell 0-2 /HPF (0-2); Urine Squamous Cell >30 /LPF (Few); Urine White Cell >100 /HPF (0-5)
== END ==
LOC: OLABN 16:36
PROVIDERS: ATTENDING PHYSICIAN Student in an Organized Health Care Education/Training Program
DX: R39.15 Urgency of urination (principal)
CPT/HCPCS: 81003; 81015; 87077; 87086; 87186

== ENCOUNTER 2025-03-23 13:35 | Emergency (ER) | payer MEDICARE, OTHER, SELFPAY ==
[2025-03-23 14:40] VITALS: BP 129/85
--- NOTE | 2025-03-23 15:10 | ED.GENMED ---
History of Present Illness
General
Chief Complaint: Fall
Time Seen by Provider: 03/23/25 14:44
History of Present Illness
History of Present Illness:
85-year-old female with history of hypertension and hyperlipidemia presents to the emergency department from her nursing facility after a witnessed fall. Lost her balance and fell backwards striking her occiput against a wall. She reports head and
neck pain, no reported LOC. She is not on anticoagulants
Past History
Past History
ED Past Medical History: HTN, Other (Hearing loss left ear, dry eye, thyroid nodules, difficulty swallowing, restrictive lung disease, head tremors, migraine, renal calculi, ovarian cyst) and Other
ED Past Surgical History: Gynecological (Ovarian cystectomy), Orthopedic (Left knee replacement, spinal surgery for scoliosis, spinal stenosis surgery, plates and neck, carpal tunnel release bilaterally) and Other (Read and agree with pshx)
Social History
Tobacco: Non-smoker
Alcohol: None
Drug: None
Personal: Single
Living: alone
Employment: Employed
Family History
Family History: Hypertension
Review of Systems
Review of Systems
Allergies reviewed?: Yes
All Other Systems: ROS reviewed and negative except as documented in HPI and ROS
Phy Exam
Physical Exam
Physical Exam:
GEN: Well appearing, NAD, WDWN
HEENT: Small midline parietal scalp hematoma oral mucosa moist, no scleral icterus, no midline cervical spine tenderness, range of motion markedly limited secondary to prior surgical procedures
Cardiac: Regular rate
Lung: No respiratory distress, no tachypnea
MSK: No gross deformity or injuries
Skin: Good color, no pallor or jaundice, no rashes
Neuro: AO x3, moves all extremities freely
Psych: Calm, cooperative
Course
Orders/Labs/Results
Orders:
Orders
03/23/25 13:50
CT Head W/o Iv Contrast Urgent
Comment:
Reason For Exam: fall, head injury
Cervical Spine wo Contrast CT [CT Cervical Spine W/o Iv Contr] Urgent
Comment: in c-collar
Reason For Exam: fall, neck pain
MDM/Problems Addressed
MDM/Problems Addressed:
Imaging negative for traumatic injuries, suitable for discharge home
*Pulse Oximetry
Patient hypoxic: no
*Critical Care Note
Total Time (30-74mins, 75-104mins- exclusive of procedures): Not Applicable
ED Attending Note
-
Portions of this chart may have been created with voice recognition software.� Occasional wrong word or��sound alike� substitutions may have occurred due to the inherent limitations of voice recognition software.
Discharge Plan
Departure
Patient Disposition: Home (Routine Discharge)
Date of Disposition: 03/23/25
Time of Disposition: 16:03
Patient with high blood pressure during this ER visit?: No
Discharge Problem:
Closed head injury
Instructions: Preventing falls in adults
Prescriptions:
No Action
clonazepam 0.5 MG tablet
0.25 mg PO HS
ascorbic acid (vitamin C) [Vitamin C] 500 MG tablet
1,000 mg PO DAILY
rizatriptan 10 MG tablet,disintegrating
10 mg PO DAILYPRN PRN (Reason: migraine, 2 hr intervals)
omeprazole 20 MG capsule,delayed release(DR/EC)
20 mg PO DAILY
propranolol 120 MG capsule,extended release 24 hr
120 mg PO DAILY
loratadine 10 MG tablet
10 mg PO DAILYPRN PRN (Reason: seasonal allergies)
pregabalin 100 MG capsule
150 mg PO TID
Patient Comments:
04/21/20-increase direction due to knee surgery, patient lasted filled 01/28/2020 #270
cholecalciferol (vitamin D3) 1,000 UNITS tablet
1,000 units PO DAILY
Prolia 60 MG/ML syringe
60 mg SQ Q6M
multivitamin with folic acid [Tab-A-Jasper] 1 TABLET tablet
1 tab PO DAILY
Dysport
1 dose INJ Q3M
Patient Comments:
04/21/2020: injection in the neck for head tremor
Refresh Classic (PF) 10 DROPS dropperette
1 drops BOTH EYES QIDPRN PRN (Reason: dry eye)
losartan 25 MG tablet
25 mg PO QPM
naproxen sodium [Aleve] 220 mg Capsule
440 mg PO BID PRN (Reason: pain)
atorvastatin 20 mg Tablet
20 mg PO DAILY
hydrocortisone 10 mg Tablet
10 mg PO DAILY Qty: 30 0RF
hydrocortisone 10 mg Tablet
5 mg PO QPM Qty: 30 0RF
capsaicin [Arthritis Pain Relief(capsaic)] 0.075 % Cream
1 applic topical QID Qty: 57 0RF
Referrals:
Emmanuel Franks MD [Family Provider, Family Practice]
Interventions
Interventions:
*Risk Screen - Suicide Last Done: 03/23/25 13:47
*General Assessment Last Done: 03/23/25 13:47
Discharge Date and Time
Print Language: LIBERIAN
[2025-03-23 16:10] VITALS: BP 122/91
--- NOTE | 2025-03-23 18:10 | EDRN ---
Pt. upset with length of wait for transport company. pt was discharged at 1605 and has been waiting for a wheel chair van for 1.5 hours. RN attempted to explain to patient why times get pushed back some times for pickup and that the hospital television rental clerk was unable
to get [employer] [place] for a van that she insist she came by. Pt. educated that sometimes there is a wait for transport back to the facility. Pt. looks to have come in by [facility]. Pt. made aware hospital television rental clerk unable to get through to the
facility. Pt. asking for a phone to called them herself. attempted to get one of the nursing cell phones and bring back to the patient however pt. continues to be rude and yelling at RN. RN attempting explain again but pt continues to talk over RN
and continues to rude to RN. Pt. tried to yell out to other staff members working and RN tried to readdress the issues so that other could continue to work. Pt. continues to dismissing RN from treating her and talking over RN. sign board erector made aware.
== END 2025-03-23 18:33 | disposition home or self-care (01) ==
LOC: EMR 13:35
PROVIDERS: EMERGENCY PHYSICIAN Emergency Medicine; FAMILY PHYSICIAN Family Medicine
DX: S09.90XA Unspecified injury of head, initial encounter (principal); M54.2 Cervicalgia; W01.198A Fall on same level from slipping, tripping and stumbling with subsequent striking against other object, initial encounter; I10 Essential (primary) hypertension; E78.5 Hyperlipidemia, unspecified; Z98.1 Arthrodesis status
CPT/HCPCS: 99284; 70450; 72125

== ENCOUNTER 2025-03-28 13:56 | Inpatient (IN) | payer MEDICARE, OTHER, SELFPAY ==
[2025-03-28] VITALS (7 sets, daily range): BP systolic 107–155; BP diastolic 54–84; BMI 21.9
--- NOTE | 2025-03-28 10:53 | ED.MUSCINJ ---
HPI-Injury
General
Chief Complaint: Musculo-Skeletal Complaint
Source: patient
Time Seen by Provider: 03/28/25 10:51
History of Present Illness-Injury
Initial Injury comments:
85 female with past medical history of restrictive lung disease, hypertension, migraines presents to the ER with elbow pain. She sustained a fall on 03/23/2025 where she hit her head. Head CT and cervical neck CT revealed no fractures. She also
sustained a small right elbow abrasion, but did not complain of any elbow pain at that time. She was discharged to [facility] for physical therapy given weakness after the fall. On Friday, patient noted increased pain in her right elbow. It
progressively got worse with associated redness and swelling. She states has been some clear fluid that has drained out of the elbow. There has been redness traveling up her right arm and down her right forearm. She has increased right hand
swelling as well compared to her left. She denies any fevers, chills. She does have an increased raspy voice however denies sore throat, cough, runny nose. She is being treated for an eye infection with topical antibiotics as well.
Past History
Past History
ED Past Medical History: HTN, Other (Hearing loss left ear, dry eye, thyroid nodules, difficulty swallowing, restrictive lung disease, head tremors, migraine, renal calculi, ovarian cyst) and Other (Concerns for adrenal insufficiency )
ED Past Surgical History: Gynecological (Ovarian cystectomy), Orthopedic (Left knee replacement, spinal surgery for scoliosis, spinal stenosis surgery, plates and neck, carpal tunnel release bilaterally) and Other (Read and agree with pshx)
Social History
Tobacco: Non-smoker
Alcohol: None
Drug: None
Personal: Single
Living: alone
Employment: Employed
Family History
Family History: Hypertension
Review of Systems
Review of Systems
Allergies reviewed?: Yes
Constitutional: Reports no symptoms
EENT: Reports no symptoms
Respiratory: Reports no symptoms
Cardiac: Reports no symptoms
ABD/GI: Reports no symptoms
: Reports no symptoms
Musculoskeletal: Reports joint swelling (right elbow ) and edema
Neurological: Reports no symptoms
Endocrine: Reports no symptoms
Hematologic/Lymphatic: Reports no symptoms
Psychiatric: Reports no symptoms
Phy Exam
Physical Exam
Physical Exam:
General: Uncomfortable however nontoxic
Head: Atraumatic
Eyes: PERRLA, scleral icterus
Cardiac: Regular S1, S2, no murmurs
Respiratory: Clear breath sounds bilaterally
Abdomen: Soft, nontender, normal bowel sounds
Neurological: Non-focal
Extremities: Right elbow erythema and swelling. Range of motion limited to pain. Erythema running up the upper arm and down the forearm.
Injury Course
Orders/Labs/Results
Orders:
Orders
03/28/25 11:35
CR Elbow - Right Min 3 Views Urgent
Comment:
Reason For Exam: Pain, fall
03/28/25 11:48
Urinalysis Reflex To Culture Urgent
03/28/25 11:51
Urinalysis Reflex To Culture Urgent
0.9% Sodium Chloride 500 ml [Nss] 500 ml IV BOLUS
03/28/25 11:53
CeFAZolin 2 GRAM [Ancef] 2 grams in 10 ml IV NOW
03/28/25 11:58
C-Reactive Protein Urgent
Comment: ADD ON
CMP [Comprehensive Metabolic Panel] Urgent
Complete Blood Count/With Diff Urgent
Direct Bilirubin Urgent
Erythrocyte Sed Rate Urgent
Comment: ADD ON
Lactic Acid Q4H
Comment: CANCEL 2nd LACTIC ACID IF 1st LACTIC ACID IS LESS THAN 2
Blood Culture Q30M
BENJAMIN Source: Blood/Venous
Specimen Description:
03/28/25 12:01
Blood Culture Q30M
BENJAMIN Source: Blood/Venous
Specimen Description:
Wound Culture [Wound/Abscess/Other Culture] Urgent
BENJAMIN Source: Elbow
Specimen Description: Right
Date Specimen was Collected: 03/28/25
Time Specimen was Collected: 11:56
03/28/25 12:28
Add On- LAB Urgent
Tests Added?: indirect bili
03/28/25 12:39
Body Fluid Crystals Urgent
What is the Body Fluid: elbow aspiration
03/28/25 12:45
Add On- LAB Urgent
Tests Added?: ESR, CRP
03/28/25 12:46
ORTHOPEDIC CONSULT Routine
Consulting Provider: Kimberley Coto I.
Was physician already notified: Yes
03/28/25 13:45
Admit/Transfer Patient As Directed
Co-Sign Provider:
Level of Care: Inpatient admission
Assign to:: Medical/Surgical
Physician / Group: [facility]
Diagnosis: R elbow pain
Reason for Hospitalization: R elbow pain, bursitis, leukocytosis
Expected length of stay greater than two midnights?: Yes
ELOS- Estimated Length of Stay in days: 4
I certify the patient meets the requirements for IP care: Yes
PRN Pain Medication Management As Directed
May give lesser potent ordered pain med per pt: Yes
preference::
Protocol:: Medication orders for pain may be administered in a
manner that supports deferring to patient preference
when the pt is:
- Requesting an ordered lesser potent pain medication.
Least to most potent pain medications are defined
as: acetaminophen < NSAID < tramadol < opioids
(morphine, oxycodone, hydromorphone).
- Requesting a lesser dose of the same medication IF
ORDERED.
- Requesting a less intrusive route of administration
if both routes are prescribed by the provider (PO <
IV).
03/28/25 13:46
Code Status As Directed
Resuscitation Status: Full Code
Abnormal Lab Results
03/28/25
11:58
WBC 22.1 H 10^3/uL
(4.8-10.8)
RBC 4.05 L 10^6/uL
(4.20-5.40)
Hct 36.7 L %
(37.0-47.0)
Plt Count 93 L 10^3/uL
(130-400)
MPV 11.6 H fL
(7.4-10.4)
Abs Immat Gran (auto) 0.2 H 10^3/uL
(0-0.05)
Absolute Neuts (auto) 20.6 H 10^3/uL
(1.4-6.5)
Absolute Lymphs (auto) 0.2 L 10^3/uL
(1.2-3.4)
Absolute Monos (auto) 1.0 H 10^3/uL
(0.1-0.6)
Immature Gran % 0.8 H %
(0-0.5)
Neutrophils % 93.6 H %
(42.2-75.2)
Lymphocytes % 0.9 L %
(20.5-51.1)
Sodium 131 L mmol/L
(135-145)
BUN 20 H mg/dl
(7-17)
Glucose 131 H mg/dl
(70-99)
Total Bilirubin 1.6 H mg/dl
(0.2-1.3)
C-Reactive Protein 163.50 H mg/L
(0.0-10.00)
03/28/25 11:58
03/28/25 11:58
Procedures
Incision/Drainage/Joint Aspiration
Right Elbow:
Preparation: cleaned with Hibiclens
Type of procedure: aspiration
Nature of site: abscess
Description of abscess: greater than 3cm
Loculations broken up: No
How much fluid was obtained?: small amount (2mls )
Fluid description: cloudy and bloody
Treatment: bandaid applied
MDM/Problems Addressed
Differential Diagnosis Includes:
Infected bursa, cellulitis, septic joint, fracture, dislocation, sepsis, UTI
MDM/Problems Addressed:
CBC, CMP, lactic acid, blood cultures, wound aspiration studies, x-ray.
CBC revealed WBC 22.1. Lactic acid 1.1 however temp 99.5, tachycardic with heart rate 105. Given age and significant erythema with elevated white count, will admit to the hospital for IV antibiotics. Provided a 500 cc bolus in the ER and 2 g of
Ancef. Suspect olecranon bursitis, but cannot rule out septic joint. Of note, T. bili is 1.6 and patient does have scleral icterus. No right upper quadrant pain with palpation. Will order direct bili to evaluate if elevated T. bili due to
breakdown of hematomas after fall. xray revealed no fracture.
Of note, patient was worked up for adrenal insufficiency after having a low am cortisol in her last hospitalization. She was on hydrocortisone but taken off of it a month ago by Dr. Mart. She is not familiar with the term adrenal
insufficiency and is unsure why the medication was stopped. BP has been stable in the ER.
Chronic conditions affecting care: Other (Restrictive lung disease)
*Pulse Oximetry
SaO2: 96
Oxygen Mode of Delivery: Room air
Patient hypoxic: no
*Critical Care Note
Total Time (30-74mins, 75-104mins- exclusive of procedures): Not Applicable
Data Reviewed
Review of Other/Old Records Reveals: Labs (Hemoglobin 10.6 on 02/23/2025) and Radiology Studies (Head CT on 03/23/2025 no acute intracranial abnormality noted)
Source: patient and records
ED Attending Note
-
Portions of this chart may have been created with voice recognition software.� Occasional wrong word or��sound alike� substitutions may have occurred due to the inherent limitations of voice recognition software.
Discharge Plan
Departure
Patient Disposition: Admit
Date of Disposition: 03/28/25
Time of Disposition: 14:34
Presentation/result/management discussed w/ accepting MD/DO: Hospitalist
Discharge Problem:
Bursitis, olecranon, Cellulitis
Interventions
Interventions:
*Risk Screen - Suicide Last Done: 03/28/25 10:15
*General Assessment Last Done: 03/28/25 10:30
*Neglect/Abuse Screening Last Done: 03/28/25 10:15
*ED COVID-19 Vaccine History Last Done: 03/28/25 10:30
*ED Influenza Vaccine History Last Done: 03/28/25 10:30
ED-Musculoskeletal Assessment Last Done: 03/28/25 10:30
[2025-03-28] MEDS: NSS 500 IV (12:10)
[2025-03-28] MEDS: ANCEF 10 IV ×2 (12:10→20:00)
[2025-03-28 12:19] LABS: Hematocrit 36.7 % (37.0-47.0); Hemoglobin 12.4 g/dL (12.0-16.0); Mean Corp Hgb Conc. 33.8 g/dL (33.0-37.0); Mean Corpuscular Volume 90.6 fL (81.0-99.0); Red Cell Dist. Width 13.8 % (11.5-14.5)
[2025-03-28 12:24] LABS: ALT (SGPT) 24 U/L (0-35); AST (SGOT) 28 U/L (14-36); Albumin 4.2 g/dl (3.5-5.0); Alkaline Phosphatase 41 U/L (38-126); Blood Urea Nitrogen 20 mg/dl (7-17); Calcium 9.2 mg/dl (8.4-10.2); Carbon Dioxide 28 mmol/L (22-30); Chloride 98 mmol/L (98-107); Glucose 131 mg/dl (70-99); Potassium 3.9 mmol/L (3.5-5.1); Sodium 131 mmol/L (135-145); Total Protein 6.5 g/dl (6.3-8.2); eGFR > 60.00
[2025-03-28 12:57] LABS: Nucleated Red Blood Cells % 0 %; Platelet Count 93 10^3/uL (130-400)
--- NOTE | 2025-03-28 13:23 | HPS.HSE ---
Addendum entered and electronically signed by Neftaly López MD 03/28/25 17:15:
Allergies
Allergy/AdvReac Type Severity Reaction Status Date / Time
adhesive tape Allergy sores Verified 03/23/25 13:47
latex Allergy Rash Verified 03/23/25 13:47
Home Medications
ascorbic acid (vitamin C) 500 mg tablet (Vitamin C) 1,000 mg PO DAILY Supplement 03/09/19
cholecalciferol (vitamin D3) 25 mcg (1,000 unit) tablet 1,000 units PO DAILY Supplement 03/09/19
loratadine 10 mg tablet 10 mg PO DAILYPRN PRN seasonal allergies 03/09/19
multivitamin with folic acid 400 mcg tablet (Tab-A-Jasper) 1 tab PO DAILY Supplement 03/09/19
omeprazole 20 mg capsule,delayed release 20 mg PO DAILY Gastrointestinal Issue 03/09/19
polyvinyl alcohol-povidone (PF) 1.4 %-0.6 % eye drops in a dropperette (Refresh Classic (PF)) 1 drops BOTH EYES QID Eye Condition 03/09/19
pregabalin 100 mg capsule 150 mg PO HS Neurological Condition 03/09/19
propranolol 120 mg capsule,24 hr,extended release 120 mg PO DAILY Blood Pressure 03/09/19
rizatriptan 10 mg disintegrating tablet 10 mg PO DAILYPRN PRN migraine 03/09/19
atorvastatin 20 mg tablet 20 mg PO DAILY High Cholesterol 08/15/24
cyclosporine 0.05 % eye drops in a dropperette (Restasis) 1 drp BOTH EYES Q12H Eye Condition 03/28/25
hydrocortisone 10 mg tablet 5 mg PO QPM 03/28/25
losartan 50 mg tablet 50 mg PO DAILY Blood Pressure 03/28/25
pregabalin 100 mg capsule (Lyrica) 100 mg PO BID 03/28/25
sertraline 25 mg tablet 25 mg PO DAILY Mental Health/Anxiety 03/28/25
Original Note:
Family Physician
-
Family Physician: Emmanuel Franks
Chief Complaint
-
left elbow pain
History of Present Illness
85-year-old female who is presenting from [facility] with complaint of right elbow pain. Patient had a fall last with head contusion. Patient fell on the right side. Patient came into the ER and underwent CT head which was negative
for acute pathology. Patient also underwent CT of the cervical spine. Patient stated at the senior living she was complaining of severe right elbow pain. Unable to do left elbow at times. It progressively got worse with associated redness and
swelling. Denies any tingling sensation. Denies any fevers or chills. States of severe pain. Start states of noticing mild drainage from the right elbow site.
Medical History
Past Medical History
Past Medical History: Reports HTN and Other
Additional Past Medical History:
Hearing loss
dry eye,
thyroid nodules,
restrictive lung disease,
head tremors,
migraine,
Hyponatremia
Past Surgical History: Reports Cholecystectomy and Orthopedic (Spinal surgery for scoliosis, status post spinal fusion, right knee replacement, partial left knee replacement)
Social History
Tobacco: Non-smoker
Alcohol: None
Living: Alf ([facility] x 2 weeks )
Employment: Retired
Family History
Family History: Not pertinent
Allergies / Home Medications
Allergies reflects when Allergies were last updated in [employer].
Home Medications with original date entered in [employer]
Allergy/Medication List:
Medications on admission are unable to be verified or confirmed at this time.
Review of Systems
-
History Source: Patient
A 12 point ROS was completed and negative except as noted: Yes
Physical Exam
Vital Signs
Vital Signs
Temp Pulse Resp BP Pulse Ox
99.5 F 102 16 124/54 96
03/28/25 10:15 03/28/25 12:07 03/28/25 10:15 03/28/25 10:15 03/28/25 12:07
Physical Exam
General: Well Developed, Well Nourished and No Apparent Distress
HEENT: NormoCephalic, Moist mucous membranes and Atraumatic
Respiratory: Clear
Cardiac: S1/S2 and Regular Rhythm; No Murmur or Rub
GI: Soft, Non Tender, Non Distended and Normal Bowel Sounds; No Organomegaly
Rectal: Deferred by Provider
Musculoskeletal: Other (R elbow erythema with radiation to upper arm and forearm, swollen. Mildly TTP. +R side Radial/ulna pulses. brisk capillary refill. ROM limited due to pain. )
Skin: No Rash
Neuro: Awake, AO x 3 and Nonfocal/grossly intact
Psych: Calm
Laboratory Results
-
03/28/25 11:58
03/28/25 11:58
Laboratory Results
Lactic Acid Cancelled 03/28/25 16:00
Total Bilirubin 1.6 mg/dl (0.2-1.3) H 03/28/25 11:58
AST 28 U/L (14-36) 03/28/25 11:58
ALT 24 U/L (0-35) 03/28/25 11:58
Alkaline Phosphatase 41 U/L (38-126) 03/28/25 11:58
Data Reviewed
-
CT Scan: Report Reviewed by me, Discussed with Physician and Discussed with Patient
Lab Data: Labs Reviewed by me, Discussed with Physician and Discussed with Patient
Impression/Plan
-
#Right elbow pain associated with erythema and swelling concern for olecranon bursitis
#Severe leukocytosis
Status post drainage in ER with 2 cc of fluid was removed
Follow-up on the culture data
Start patient on IV antibiotics - vancomycin
Orthopedic has been consulted from ER
Infectious disease evaluation
Follow-up on the blood culture data
ESR/CRP pending
Check R elbow xray.
Defer CT vs. MRI to orthopedic if needed
Pain control.
#Mild hyperbilirubinemia
await direct
trend cmp.
ast/alt wnl
#Primary hypertension
await home med confirmation
#Chronic hyponatremia
stopped taking NaCl tablets 2 days ago on her own accord.
Hip osteoarthrtis
Sees orthopedic Dr. Garcia for steroid injection
Mild restrictive lung disease
O2 stable.
sees Dr. Akers as outpatient
DVT ppx-lovenox sq
Full code
I spent a total of 80 minutes with the patient or on the floor. More than 50% of this time involved counseling and coordination of care.
--- NOTE | 2025-03-28 13:52 | CON.ORTHO ---
Consultation
-
Date/Time Consultation Requested: 03/28/2025 1308
Date/Time Consultation Performed: 03/29/2025 0730
Requesting Provider: Dr. Nuria Godoy
Performing Provider: ERON Woodson, Dr. Kimberley Coto
Reason for Consultation: R elbow possible septic bursitis
Consultation - Orthopedics
History
85-year-old female presented to [place] emergency room from [facility] with right elbow pain and a fall almost 1 week ago with impact of her right elbow. She has had progressive pain and swelling since then and some drainage which prompted
her visit to the emergency room. She denies any antibiotics given to her prior to admission and aspiration. Underwent aspiration of the right elbow reportedly of the bursa.
Allergies / Home Medications
Past Medical History
Past Medical History: Reports HTN and Other
Additional Past Medical History:
Hearing loss
dry eye,
thyroid nodules,
restrictive lung disease,
head tremors,
migraine,
Hyponatremia
Past Surgical History: Reports Cholecystectomy and Orthopedic (Spinal surgery for scoliosis, status post spinal fusion, right knee replacement, partial left knee replacement)
Social History
Tobacco: Non-smoker
Alcohol: None
Living: Group Home (community [facility] x 2 weeks )
Employment: Retired
Family History
Family History: Not pertinent
Allergy/AdvReac Type Severity Reaction Status Date / Time
adhesive tape Allergy sores Verified 03/23/25 13:47
latex Allergy Rash Verified 03/23/25 13:47
�Medication �Instructions �Recorded
Dysport 1 dose INJ Q3M 03/09/19
ascorbic acid (vitamin C) 500 mg 1,000 mg PO DAILY Supplement 03/09/19
tablet (Vitamin C)
cholecalciferol (vitamin D3) 25 1,000 units PO DAILY Supplement 03/09/19
mcg (1,000 unit) tablet
clonazepam 0.5 mg tablet 0.25 mg PO HS Mental Health/Anxiety 03/09/19
denosumab 60 mg/mL subcutaneous 60 mg SQ Q6M 03/09/19
syringe (Prolia)
loratadine 10 mg tablet 10 mg PO DAILYPRN PRN seasonal 03/09/19
allergies
multivitamin with folic acid 400 1 tab PO DAILY Supplement 03/09/19
mcg tablet (Tab-A-Jasper)
omeprazole 20 mg capsule,delayed 20 mg PO DAILY Gastrointestinal 03/09/19
release Issue
polyvinyl alcohol-povidone (PF) 1 drops BOTH EYES QIDPRN PRN dry 03/09/19
1.4 %-0.6 % eye drops in a eye
dropperette (Refresh Classic (PF))
pregabalin 100 mg capsule 150 mg PO TID Neurological 03/09/19
Condition
propranolol 120 mg capsule,24 120 mg PO DAILY Blood Pressure 03/09/19
hr,extended release
rizatriptan 10 mg disintegrating 10 mg PO DAILYPRN PRN migraine, 2 03/09/19
tablet hr intervals
losartan 25 mg tablet 25 mg PO QPM Blood Pressure 04/21/20
atorvastatin 20 mg tablet 20 mg PO DAILY High Cholesterol 08/15/24
naproxen sodium 220 mg capsule 440 mg PO BID PRN pain 08/15/24
(Aleve)
capsaicin 0.075 % topical cream 1 applic topical QID #57 grams 08/17/24
(Arthritis Pain Relief (capsaicin))
hydrocortisone 10 mg tablet 5 mg (1/2 x 10 mg) PO QPM #30 tabs 08/17/24
hydrocortisone 10 mg tablet 10 mg PO DAILY #30 tabs 08/17/24
Vital Signs / Lab Results
Temp Pulse Resp BP Pulse Ox
99.5 F 102 16 124/54 96
03/28/25 10:15 03/28/25 12:07 03/28/25 10:15 03/28/25 10:15 03/28/25 12:07
Physical Exam:
General: Well-nourished well-developed no acute distress conscious alert and oriented
Focused musculoskeletal: Focused examination of the right upper extremity at the level elbow show superficial skin loss approximately 1 cm towards the medial aspect of the olecranon. There is diffuse soft tissue swelling and erythema of the
midportion and distal brachium into the proximal third of the antebrachium. There is firmness and loss of skin wrinkles to include the area of her olecranon bursa. No significant fluctuance. Neuro vastly intact C5-T1. Range of motion 20 to 90
degrees with mild discomfort
03/28/25 11:58
03/28/25 11:58
WBC:
03/28: 22.1
03/29: 16.0
ESR: 03/28: 12
CRP: 03/28: 163.50
Elbow aspiration: 03/28 in ER. Cultures pending with preliminary Gram stain no organisms seen and few WBCs
No cell count or crystal analysis on file
Imaging:X-rays taken the right elbow show calcifications off of the lateral epicondyle without acute osseous abnormalities. Soft tissue swelling about the right elbow and olecranon
Assessment / Plan
85-year-old female with traumatic injury of her right elbow secondary laceration with olecranon bursitis and suspected cellulitis and possible septic bursitis.
- Cultures pending at this timeframe; no reported antibiotics prior to bursal aspiration.
- Infectious disease following. Continue with antibiotics as ordered/recommended pending culture growth.
- Orthopedic surgery will continue to follow to monitor exam for consideration of treatment plan of broad-spectrum antibiotics with possible serial aspirations if indicated versus consideration of operative debridement.
- Diet DVT PPx and pain per primary
- Orthopedic surgery will continue to follow
[2025-03-28 14:01] LABS: C-Reactive Protein 163.50 mg/L (0.0-10.00)
--- NOTE | 2025-03-28 14:29 | CM ---
Chart reviewed and spoke with patient at ED bedside
Lives alone in a multilevel home with 2 DIANE
First floor set up
Per patient she is independent with ADLs and ambulation with RW
Has a hospital bed on the first floor and purewick bought by son
Son is traveling for work and assists when he can
She has a senior helper coming daily 1 hour a day
DME hospital bed, Rw, Purewick, cane and railings
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
Sister Patsy lives in [place].
Patient has information for private aide info but would rather not use her funds now
Not interested in [facility] at this time
PCP Dr. Emmanuel Franks
RX [facility]
Hx of [facility] for PT
no hx of SNF
DCP pt wants to return home with possibly services
NOT INTERESTED IN SNF [place]
CM will continue to follow up for any other DCP needs
--- NOTE | 2025-03-28 15:01 | CON.ID ---
Consultation
-
Date/Time Consultation Requested: 03/28/2025 1354
Date/Time Consultation Performed: 03/28/2025 1440
Requesting Provider: Dr. López
Performing Provider: Dr. Broussard
Reason for Consultation: Right olecranon bursitis; right upper extremity cellulitis
Chief Complaint / Past History
History of Present Illness
Klaudia Coker is an 85-year-old female being evaluated at the request of Dr. López in regards to right upper extremity cellulitis and olecranon bursitis. History is obtained from chart review, along with patient interview.
Patient reports that last week she fell while she was at [facility] undergoing rehab. She was brought to the emergency room after this reported witnessed fall during which she reportedly lost her balance and fell backwards striking her occiput
against a wall. There was no reported loss of consciousness. She also was noted to have a small right elbow abrasion, but was not complaining of elbow discomfort at that time. Ultimately she was discharged back to the [facility], and states
that she was discharged from [facility] the next day to home. Over the next 2 days she noted increasing discomfort and pain in the right elbow area with increasing redness. Ultimately she was brought to the ER for further evaluation.
She denies any prior fevers or chills, but notes pain all along the arm, but most concentrated in the elbow area. There is some reported yellowish drainage. Initial labs revealed a marked leukocytosis, and she has been started on empiric
antibiotics. Infectious Diseases is asked to comment upon further antimicrobial management.
Past History
Additional Past Medical History:
HTN
Chronic dry eyes
Thyroid nodule
Restrictive lung disease
Migraine
Nephrolithiasis
Ovarian cyst
Additional Past Surgical History:
Ovarian cystectomy
Left knee replacement
Spinal surgery for scoliosis
Allergy History:
adhesive tape Allergy (Verified 03/23/25 13:47)
sores
latex Allergy (Verified 03/23/25 13:47)
Rash
Medications Reviewed: Yes
Current Antibiotics:
Cefazolin 2 gm IV x 1 dose
Social History
Tobacco: Non-Smoker
Alcohol: None
Drug: None
Personal: Single
Living: With Family
Employment: Retired
Family History
Family History: Not Pertinent
Review of Systems
Vital Signs
Temp Pulse Resp BP Pulse Ox
99.5 F 102 16 124/54 96
03/28/25 10:15 03/28/25 12:07 03/28/25 10:15 03/28/25 10:15 03/28/25 12:07
Physical Exam
Physical Exam
Constitutional: No Acute Distress, Comfortable and Non-toxic
Eyes: Pupils Equal, Pupils Round, No Conjunctival Hemorrhage and Erythema
Oral: No Thrush and No Ulcers
Cardiovascular: Negative S3/S4
Pulmonary: Clear; Negative Wheezes or Rales
Gastrointestinal: Soft, Non Tender, Non Distended and Normal Bowel Sounds
Genito-Urinary: Negative Cifuentes
Extremities: Edema (Right upper extremity with noted swelling and dependent edema of the olecranon area and outward.) and Erythema (Marked erythema of the olecranon area, extending fci up the arm proper, and down the forearm)
Musculoskeletal: Other (Marked swelling of the olecranon bursa area with significant tenderness to touch)
Skin: Warm and Dry
Wound: Other (Small, superficial 1 cm abrasion noted in the right olecranon area)
Neurological: Awake and Alert
Psychological: Calm
Lab / Diagnostic Study Results
03/28/25 11:58
03/28/25 11:58
Abs Immat Gran (auto) 0.2 10^3/uL (0-0.05) H 03/28/25 11:58
Absolute Neuts (auto) 20.6 10^3/uL (1.4-6.5) H 03/28/25 11:58
Absolute Lymphs (auto) 0.2 10^3/uL (1.2-3.4) L 03/28/25 11:58
Absolute Monos (auto) 1.0 10^3/uL (0.1-0.6) H 03/28/25 11:58
Absolute Basos (auto) 0.1 10^3/uL (0-0.2) 03/28/25 11:58
Immature Gran % 0.8 % (0-0.5) H 03/28/25 11:58
Neutrophils % 93.6 % (42.2-75.2) H 03/28/25 11:58
Lymphocytes % 0.9 % (20.5-51.1) L 03/28/25 11:58
Monocytes % 4.4 % (1.7-9.3) 03/28/25 11:58
Eosinophils % 0.1 % (0-6) 03/28/25 11:58
Basophils % 0.2 % (0-2) 03/28/25 11:58
ESR 12 mm/hour (0-20) 03/28/25 11:58
Lactic Acid Cancelled 03/28/25 16:00
C-Reactive Protein 163.50 mg/L (0.0-10.00) H 03/28/25 11:58
Microbiology Results
Micro:
03/28/25 12:01 Wound Culture - Pending
Elbow - Right Gram Stain - Pending
03/28/25 12:01 Blood Culture - Pending
Blood/Venous
03/28/25 11:58 Blood Culture - Pending
Blood/Venous
Imaging:
03/28/2025 X-ray right elbow: no acute fracture identified radiographically. Findings suggestive of lateral calcific tendinopathy. Large amount of soft tissue swelling is noted. Please see full dictation for additional detail.
Assessment / Plan
Right arm cellulitis
Suspected right olecranon bursitis
Leukocytosis
Elevated CRP
HTN
Chronic dry eyes
Thyroid nodule
Restrictive lung disease
Migraine
Nephrolithiasis
Ovarian cyst
Recommendations:
Continue with cefazolin 2 gm IV q.8 hours.
Would attempt aspiration of the bursa for culture to guide further antimicrobial selection and potential de-escalation.
Upper extremity elevation as tolerated.
Monitor white count and temperature curve.
Follow pending blood cultures.
Further recommendations as additional data is returned.
[2025-03-28 16:12] LABS: Urine Character Slightly Cloudy (Clear)
[2025-03-28] MEDS: NSS 1000 IV (16:30)
[2025-03-28 16:31] LABS: Urine Squamous Cell 0-2 /LPF (Few)
[2025-03-28 16:32] LABS: Urine Red Blood Cell 0-2 /HPF (0-2)
[2025-03-28 16:33] LABS: Urine White Cell 26-30 /HPF (0-5)
--- NOTE | 2025-03-28 17:56 | PTCARENOTE ---
This patient arrived to the unit around 1700 this shift. 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 Pain reported in R elbow. Area noted to be red, warm and edematous. Vascular checks ordered and completed on admission.
VSS. Pt son present at bedside helping to answer questions. Pt oriented to room and staff. All needs met at this time. Plan of care ongoing.
[2025-03-28] MEDS: LOVENOX 40 MG SC (18:10)
[2025-03-28] MEDS: REFRESH EYE DROPS (PF) 1 DROPS BOTH EYES ×2 (18:40→21:03)
[2025-03-28] MEDS: RESTASIS 0.05% OPHTHALMIC EMULSION 1 DROPS BOTH EYES (20:00)
[2025-03-28] MEDS: LYRICA 150 MG PO (21:01)
[2025-03-28] MEDS: COZAAR 50 MG PO (22:19)
[2025-03-29] MEDS: ANCEF 10 IV ×2 (03:35→12:24)
--- NOTE | 2025-03-29 05:06 | PTCARENOTE ---
Pt attempted urinating using bed richardson multiple times throughout shift. Pt unable to urinate. Bladder scanned for 320 ml. NICK Lord notified. Bladder scan straight cath protocol ordered. Pt still having difficulty urinating. Voided a small
amount around 0300. Bladder scanned for 330 ml. Bladder scanned at 0430 for 426 ml. Straight cathed for 450 ml per protocol. Plan of care ongoing.
[2025-03-29 07:20] VITALS: BP 135/73
[2025-03-29 07:21] LABS: Hematocrit 29.0 % (37.0-47.0); Hemoglobin 9.8 g/dL (12.0-16.0); Mean Corp Hgb Conc. 33.8 g/dL (33.0-37.0); Mean Corpuscular Volume 88.4 fL (81.0-99.0); Nucleated Red Blood Cells % 0 %; Platelet Count 87 10^3/uL (130-400); Red Cell Dist. Width 13.8 % (11.5-14.5)
[2025-03-29 07:37] LABS: Blood Urea Nitrogen 17 mg/dl (7-17); Calcium 7.9 mg/dl (8.4-10.2); Carbon Dioxide 25 mmol/L (22-30); Chloride 102 mmol/L (98-107); Estimated Creatinine Clearance 51 ml/min; Glucose 116 mg/dl (70-99); Potassium 3.3 mmol/L (3.5-5.1); Sodium 130 mmol/L (135-145); eGFR > 60.00
[2025-03-29] MEDS: THERAGRAN 1 TABLET PO (07:37)
[2025-03-29] MEDS: ZOLOFT 25 MG PO (07:37)
[2025-03-29] MEDS: LIPITOR 20 MG PO (07:37)
[2025-03-29] MEDS: VITAMIN D3 (cholecalciferol) 25 MCG PO (07:37)
[2025-03-29] MEDS: INDERAL LA 120 MG PO (07:37)
[2025-03-29] MEDS: REFRESH EYE DROPS (PF) 1 DROPS BOTH EYES ×4 (07:37→21:12)
[2025-03-29] MEDS: RESTASIS 0.05% OPHTHALMIC EMULSION 1 DROPS BOTH EYES ×2 (07:37→18:13)
[2025-03-29] MEDS: PROTONIX 40 MG PO (07:37)
[2025-03-29] MEDS: LYRICA 100 MG PO ×2 (07:37→17:13)
[2025-03-29] MEDS: KCL 20 MEQ PO (08:20)
--- NOTE | 2025-03-29 11:24 | W.PN.HOSP.TC ---
Addendum entered and electronically signed by Neftaly López MD 03/29/25 13:23:
wound culture + MRSA-ID switched to daptomycin. Statin held.
Original Note:
Today's Communication/Plan
-
IV abx per ID
trend wbc
f/u on cultures
Assessment / Plan
Assessment / Plan
General: Well Developed, Well Nourished and No Apparent Distress
HEENT: NormoCephalic, Moist mucous membranes and Atraumatic
Respiratory: Clear
Cardiac: S1/S2 and Regular Rhythm; No Murmur or Rub
GI: Soft, Non Tender, Non Distended and Normal Bowel Sounds; No Organomegaly
Rectal: Deferred by Provider
Musculoskeletal: Other (R elbow erythema with radiation to upper arm and forearm, swollen. Mildly TTP. +R side Radial/ulna pulses. brisk capillary refill. ROM limited due to pain. )
Skin: No Rash
Neuro: Awake, AO x 3 and Nonfocal/grossly intact
Psych: Calm
#Right elbow pain associated with erythema and swelling due to olecranon bursitis with superimposed cellulitis vs. septic bursitis
#Severe leukocytosis
Status post drainage in ER with 2 cc of fluid was removed
Follow-up on the culture data
Start patient on IV antibiotics - cefazolin
Orthopedic foloowing
Infectious disease evaluation
Follow-up on the blood culture data
CRP elevated
R elbow xray-No acute fracture identified radiographically. Findings as above most suggestive of lateral calcific tendinopathy. Large amount of soft tissue swelling.
Defer CT vs. MRI to orthopedic if needed
Leukocytosis improved. Drop in hgb likely dilutional-received IVF.
Pain control.
#Mild hyperbilirubinemia
trend cmp.
ast/alt wnl
#Primary hypertension
Cont losartan
#Chronic hyponatremia
stopped taking NaCl tablets 2 days ago on her own accord.
If with further drop, check urine studies
Hip osteoarthrtis
Sees orthopedic Dr. Garcia for steroid injection
Mild restrictive lung disease
not on o2. stable on room air
sees Dr. Akers as outpatient
Chronic thrombocytopenia
trend platelets for now
Hypokalemia-replete/monitor
DVT ppx-lovenox sq
Full code
Anticipated Discharge: > 48 hours
Subjective/Interval History
-
Date of Service: March 29, 2025
states of R elbow pain with activity
Objective Data
-
Labs:
Laboratory Results
03/29/25
06:49
WBC 16.0 H
Hgb 9.8 L D
Hct 29.0 L
Plt Count 87 L
Sodium 130 L
Potassium 3.3 L
Chloride 102
Carbon Dioxide 25
BUN 17
Creatinine 0.6
Glucose 116 H
Calcium 7.9 L
Vital Signs:
Vital Signs
Temp Pulse Resp BP Pulse Ox
98.4 F 103 16 135/73 94
03/29/25 07:20 03/29/25 07:37 03/29/25 07:20 03/29/25 07:37 03/29/25 09:39
I&O
03/28/25 03/29/25 03/30/25
06:59 06:59 06:59
Intake Total 480 / 480
Output Total 450 / 450
Balance 30 / 30
Data Reviewed
-
Total Time Spent with Patient (in minutes): 55
[2025-03-29] MEDS: CUBICIN 10 MG IV (13:52)
--- NOTE | 2025-03-29 14:09 | W.PN.ID1 ---
Date of Service
Date of Service: March 29, 2025
Today's Communication
Continue antibiotics.
Assessment / Plan
Right arm cellulitis
Right olecranon bursitis
MRSA infection
Leukocytosis
Elevated CRP
HTN
Chronic dry eyes
Thyroid nodule
Restrictive lung disease
Migraine
Nephrolithiasis
Ovarian cyst
Recommendations:
Wound culture from the right arm reveals presence of MRSA.
Antibiotics changed to Dapto 500 mg IV q.24 hours.
Awaiting Orthopedics evaluation.
Would attempt aspiration of the bursa for deeper culture.
Upper extremity elevation as tolerated.
Monitor white count and temperature curve.
Follow pending blood cultures.
����������������������������������������������������������
Chief Complaint
-: Other (right olecranon bursitis)
Subjective / Review of Systems
Review of Systems: No Fever and No Chills
Vital Signs / Physical Exam
Vital Signs
Vital Signs
Temp Pulse Resp BP Pulse Ox
98.4 F 103 16 135/73 94
03/29/25 07:20 03/29/25 07:37 03/29/25 07:20 03/29/25 07:37 03/29/25 09:39
Physical Exam
Constitutional: No Acute Distress, Comfortable and Non-toxic
Eyes: Sclera Anicteric
Cardiovascular: S1/S2; Negative S3/S4
Pulmonary: Clear; Negative Wheezes or Rales
Gastrointestinal: Soft and Non Tender
Extremities: Other (Right arm with ongoing swelling and erythema of the forearm and arm proper.)
Musculoskeletal: Other (Significant swelling, erythema and marked tenderness of the olecranon bursa area.)
Skin: Warm and Dry
Neurological: Awake and Alert
Psychological: Calm
Objective Data
Lab Data
Lab Results
03/29/25 06:49
03/29/25 06:49
ESR 12 mm/hour (0-20) 03/28/25 11:58
Estimated Creat Clear 51 ml/min 03/29/25 06:49
Lactic Acid Cancelled 03/28/25 16:00
Total Bilirubin 1.6 mg/dl (0.2-1.3) H 03/28/25 11:58
AST 28 U/L (14-36) 03/28/25 11:58
ALT 24 U/L (0-35) 03/28/25 11:58
Alkaline Phosphatase 41 U/L (38-126) 03/28/25 11:58
C-Reactive Protein 163.50 mg/L (0.0-10.00) H 03/28/25 11:58
Most recent labs reviewed.
Micro Results:
03/28/25 15:40 Urine Culture - Final
Urine Diptheroids
03/28/25 12:01 Blood Culture - Preliminary
Blood/Venous No Growth in 24 hours- Final report to follow
03/28/25 11:58 Blood Culture - Preliminary
Blood/Venous No Growth in 24 hours- Final report to follow
03/28/25 12:01 Wound Culture - Preliminary
Elbow - Right Staph aureus MRSA
Gram Stain - Preliminary
Imaging:
03/28/2025 X-ray right elbow: no acute fracture identified radiographically. Findings suggestive of lateral calcific tendinopathy. Large amount of soft tissue swelling is noted. Please see full dictation for additional detail.
[2025-03-29 15:10] VITALS: BP 111/55
--- NOTE | 2025-03-29 16:34 | W.PN.UPDATE ---
Update Note
Progress Note Update
Agree with orthopedic PA note. Patient seen and examined. Patient sustained a abrasion to her right olecranon bursal region at [facility]. This then became red, swollen, and painful along with causing redness about her forearm. She went to
[facility] emergency room where an aspiration was performed of olecranon bursa and this fluid was sent to pathology. We are consulted for evaluation of the olecranon bursa which appeared infected. Infectious disease was consulted as well
for treatment of cellulitis and bursitis. She was placed initially on Cephlofloxin IV. Culture results this morning revealed that she had MRSA and she was switched to daptomycin 500 mg daily IV. She has had much improvement in her symptoms On the
IV antibiotics. Her Tmax was 99.9 at 2300 Last night. She is currently afebrile.
On physical exam no erythema in the area of cellulitis of the forearm. Localization of erythema at the olecranon bursal region with fluctuance. Healing abrasion. No active drainage.
X-rays performed in the emergency room last night AP/lateral/oblique show no acute fractures, dislocations or lesions. There is calcification about the RCL.
Impression infectious olecranon bursitis/cellulitis
Plan:I aspirated 3 cc of purulent tannish fluid from the olecranon bursal region at bedside today under sterile conditions. She tolerated this well. She has had much improvement just with 1 dose of the daptomycin. We will continue to follow. If
she is not continuing to trend towards improvement or has increase in fevers then olecranon bursectomy and irrigation and debridement Later in the week would be in order. She understands this. All questions were answered.
[2025-03-29] MEDS: LOVENOX 40 MG SC (17:14)
[2025-03-29] MEDS: COZAAR 50 MG PO (21:07)
[2025-03-29] MEDS: LYRICA 150 MG PO (21:12)
[2025-03-29] MEDS: CLARITIN 10 MG PO (21:30)
[2025-03-29 23:00] VITALS: BP 140/79
[2025-03-30 05:57] LABS: Hematocrit 28.8 % (37.0-47.0); Hemoglobin 9.9 g/dL (12.0-16.0); Mean Corp Hgb Conc. 34.4 g/dL (33.0-37.0); Mean Corpuscular Volume 88.9 fL (81.0-99.0); Nucleated Red Blood Cells % 0 %; Platelet Count 104 10^3/uL (130-400); Red Cell Dist. Width 13.6 % (11.5-14.5)
[2025-03-30 06:14] LABS: ALT (SGPT) 11 U/L (0-35); AST (SGOT) 19 U/L (14-36); Albumin 3.0 g/dl (3.5-5.0); Alkaline Phosphatase 53 U/L (38-126); Blood Urea Nitrogen 13 mg/dl (7-17); Calcium 8.0 mg/dl (8.4-10.2); Carbon Dioxide 28 mmol/L (22-30); Chloride 102 mmol/L (98-107); Estimated Creatinine Clearance 51 ml/min; Glucose 128 mg/dl (70-99); Potassium 3.5 mmol/L (3.5-5.1); Sodium 131 mmol/L (135-145); Total Protein 5.3 g/dl (6.3-8.2); eGFR > 60.00
--- NOTE | 2025-03-30 06:35 | PTCARENOTE ---
Pt unable to void on BSC at 2350. Bladder scanned for for 400mls. Pt straight cathed, 415mls of clear yellow urine out.
Around 0615, pt bladder scanned for 415mls. Pt unable to void on BSC. AQUEDUCT AND RESERVOIR KEEPER notified since it would be her fourth time being straight cathed. Orellana order placed. Latex free 16F orellana placed. 420mls of clear yellow urine drained into bag. Call morrell
within reach and plan of care ongoing.
[2025-03-30] MEDS: ZOLOFT 25 MG PO (07:53)
[2025-03-30] MEDS: LYRICA 100 MG PO ×2 (07:53→15:37)
[2025-03-30] MEDS: THERAGRAN 1 TABLET PO (07:53)
[2025-03-30] MEDS: VITAMIN D3 (cholecalciferol) 25 MCG PO (07:53)
[2025-03-30] MEDS: RESTASIS 0.05% OPHTHALMIC EMULSION 1 DROPS BOTH EYES ×2 (07:53→18:24)
[2025-03-30] MEDS: PROTONIX 40 MG PO (07:53)
[2025-03-30] MEDS: REFRESH EYE DROPS (PF) 1 DROPS BOTH EYES ×4 (07:54→21:17)
[2025-03-30] MEDS: INDERAL LA 120 MG PO (07:55)
[2025-03-30 08:28] VITALS: BP 152/82
--- NOTE | 2025-03-30 09:17 | W.PN.UPDATE ---
Update Note
Progress Note Update
Klaudia is resting comfortably in bed this morning. She endorses continued discomfort about the elbow, most notably with ROM, but does endorse some improvement in her symptoms since yesterday.
Directed exam of the right elbow reveals erythema about the posterior elbow, as well as edema about the olecranon. There are a few areas of skin maceration/slough. There is some dried drainage on the pillow beside patient. Pain elicited with ROM of
the elbow. NVID.
Right septic olecranon bursitis
--Photos of Klaudia's elbow were reviewed with Dr. Coto via TT. Given the continued erythema, edema, and now skin changes, Dr. Coto recommends proceeding with surgical I&D. This was discussed with Klaudia and she is in agreement. We will plan to
proceed with the OR tomorrow for right elbow I&D with olecranon bursectomy under the direction of Dr. Coto. The risks, benefits, alternatives, recovery process and potential complications were discussed in detail. Klaudia verbalized understanding
and would like to proceed with surgery. Surgical and blood consent signed and on patient chart.
--NPO after MN for OR tomorrow.
--Continue antibiotics per ID.
--Pain control prn.
--Orthopedics will continue to follow.
--- NOTE | 2025-03-30 11:34 | W.PN.HOSP.TC ---
Today's Communication/Plan
-
Monitor vital signs closely plan
Continue daptomycin
Plan for OR tomorrow by orthopedics
Check renal/bladder ultrasound
Maintain Cifuentes for now
Monitor sodium
Assessment / Plan
Assessment / Plan
General: Well Developed, Well Nourished and No Apparent Distress
HEENT: NormoCephalic, Moist mucous membranes and Atraumatic
Respiratory: Clear
Cardiac: S1/S2 and Regular Rhythm; No Murmur or Rub
GI: Soft, Non Tender, Non Distended and Normal Bowel Sounds; No Organomegaly
Rectal: Deferred by Provider
Musculoskeletal: Other (R elbow erythema with radiation to upper arm and forearm, swollen. Mildly TTP. +R side Radial/ulna pulses. brisk capillary refill. ROM limited due to pain. )
Neuro: Awake, AO x 3 and Nonfocal/grossly intact
Psych: Calm
#Right elbow pain associated with erythema and swelling due to olecranon bursitis with superimposed cellulitis vs. septic bursitis
#Severe leukocytosis
Status post drainage in ER with 2 cc of fluid was removed
Follow-up on the culture data
wound culture + MRSA-ID switched to daptomycin. Statin held.
Orthopedic following; Plan for OR 03/31
Infectious disease following
Follow-up on the blood culture data
CRP elevated
R elbow xray-No acute fracture identified radiographically. Findings as above most suggestive of lateral calcific tendinopathy. Large amount of soft tissue swelling.
Defer CT vs. MRI to orthopedic if needed
Leukocytosis improved. Drop in hgb likely dilutional-received IVF.
Pain control.
Acute urinary retention
Per patient she has history of.
now with Cifuentes catheter
check renal/bladder US
start flomax
#Mild hyperbilirubinemia
trend cmp. Now resolved
ast/alt wnl
#Primary hypertension
Cont losartan
#Chronic hyponatremia
stopped taking NaCl tablets 2 days ago on her own accord.
If with further drop, check urine studies
Hip osteoarthritis
Sees orthopedic Dr. Garcia for steroid injection
Mild restrictive lung disease
not on o2. stable on room air
sees Dr. Akers as outpatient
Chronic thrombocytopenia
trend platelets for now
Hypokalemia-replete/monitor
DVT ppx-lovenox sq
Full code
Anticipated Discharge: > 48 hours
Subjective/Interval History
-
Date of Service: March 30, 2025
Denies nausea
Objective Data
-
Labs:
Laboratory Results
03/30/25
05:28
WBC 10.6
Hgb 9.9 L
Hct 28.8 L
Plt Count 104 L
Sodium 131 L
Potassium 3.5
Chloride 102
Carbon Dioxide 28
BUN 13
Creatinine 0.5 L
Glucose 128 H
Calcium 8.0 L
Total Bilirubin 1.0
AST 19
ALT 11
Alkaline Phosphatase 53
Vital Signs:
Vital Signs
Temp Pulse Resp BP Pulse Ox
98.2 F 89 16 152/82 93
03/30/25 08:28 03/30/25 08:28 03/30/25 08:28 03/30/25 08:28 03/30/25 08:28
I&O
03/29/25 03/30/25 03/31/25
06:59 06:59 06:59
Intake Total 480 / 480 720 / 720
Output Total 450 / 450 1245 / 1245
Balance 30 / 30 -525 / -525
[2025-03-30] MEDS: FLOMAX 0.4 MG PO (12:39)
[2025-03-30] MEDS: CUBICIN 10 MG IV (14:11)
--- NOTE | 2025-03-30 15:27 | W.PN.ID1 ---
Date of Service
Date of Service: March 30, 2025
Today's Communication
Continue current antibiotics.
Assessment / Plan
Right arm cellulitis
Right olecranon bursitis
MRSA infection
Leukocytosis
Elevated CRP
HTN
Chronic dry eyes
Thyroid nodule
Restrictive lung disease
Migraine
Nephrolithiasis
Ovarian cyst
Recommendations:
Superficial wound culture from the right arm reveals presence of MRSA.
Continue daptomycin 500 mg IV q.24 hours.
Orthopedics has evaluated the patient and she is tentatively scheduled for the OR tomorrow AM.
Upper extremity elevation as tolerated.
Monitor white count and temperature curve.
Follow pending blood cultures.
����������������������������������������������������������
Chief Complaint
-: Other (right olecranon bursitis)
Subjective / Review of Systems
Patient seen and examined. Reports ongoing right elbow pain, along with swelling of the right forearm
Review of Systems: No Fever and No Chills
Vital Signs / Physical Exam
Vital Signs
Vital Signs
Temp Pulse Resp BP Pulse Ox
98.2 F 89 16 152/82 93
03/30/25 08:28 03/30/25 08:28 03/30/25 08:28 03/30/25 08:28 03/30/25 08:28
Physical Exam
Constitutional: No Acute Distress, Comfortable and Non-toxic
Cardiovascular: S1/S2; Negative S3/S4
Pulmonary: Clear; Negative Wheezes or Rales
Gastrointestinal: Soft and Non Tender
Extremities: Other (Right arm with ongoing swelling and erythema of the forearm and arm proper.)
Musculoskeletal: Other (Significant swelling, erythema and marked tenderness of the olecranon bursa area. Possible fluctuance appreciated.)
Skin: Warm and Dry
Neurological: Awake and Alert
Psychological: Calm
Objective Data
Lab Data
Lab Results
03/30/25 05:28
03/30/25 05:28
ESR 12 mm/hour (0-20) 03/28/25 11:58
Estimated Creat Clear 51 ml/min 03/30/25 05:28
Lactic Acid Cancelled 03/28/25 16:00
Total Bilirubin 1.0 mg/dl (0.2-1.3) 03/30/25 05:28
AST 19 U/L (14-36) 03/30/25 05:28
ALT 11 U/L (0-35) 03/30/25 05:28
Alkaline Phosphatase 53 U/L (38-126) 03/30/25 05:28
C-Reactive Protein 163.50 mg/L (0.0-10.00) H 03/28/25 11:58
Most recent labs reviewed.
Micro Results:
03/28/25 12:01 Blood Culture - Preliminary
Blood/Venous No Growth in 48 hours- Final report to follow
03/28/25 11:58 Blood Culture - Preliminary
Blood/Venous No Growth in 48 hours- Final report to follow
03/28/25 12:01 Wound Culture - Final
Elbow - Right Staph aureus MRSA
Gram Stain - Final
03/28/25 15:40 Urine Culture - Final
Urine Diptheroids
Imaging:
03/28/2025 X-ray right elbow: no acute fracture identified radiographically. Findings suggestive of lateral calcific tendinopathy. Large amount of soft tissue swelling is noted. Please see full dictation for additional detail.
[2025-03-30 16:00] VITALS: BP 130/69
[2025-03-30] MEDS: LOVENOX 40 MG SC (17:01)
[2025-03-30] MEDS: COZAAR 50 MG PO (21:16)
[2025-03-30] MEDS: LYRICA 150 MG PO (21:17)
[2025-03-30 23:00] VITALS: BP 125/67
[2025-03-31] VITALS (9 sets, daily range): BP systolic 110–141; BP diastolic 52–78
[2025-03-31 06:02] LABS: Hematocrit 27.2 % (37.0-47.0); Hemoglobin 9.1 g/dL (12.0-16.0); Mean Corp Hgb Conc. 33.5 g/dL (33.0-37.0); Mean Corpuscular Volume 92.8 fL (81.0-99.0); Nucleated Red Blood Cells % 0 %; Platelet Count 119 10^3/uL (130-400); Red Cell Dist. Width 13.4 % (11.5-14.5)
[2025-03-31 06:11] LABS: ALT (SGPT) 14 U/L (0-35); AST (SGOT) 18 U/L (14-36); Albumin 2.9 g/dl (3.5-5.0); Alkaline Phosphatase 51 U/L (38-126); Blood Urea Nitrogen 14 mg/dl (7-17); Calcium 7.9 mg/dl (8.4-10.2); Carbon Dioxide 27 mmol/L (22-30); Chloride 103 mmol/L (98-107); Estimated Creatinine Clearance 51 ml/min; Glucose 124 mg/dl (70-99); Potassium 3.5 mmol/L (3.5-5.1); Sodium 129 mmol/L (135-145); Total Protein 5.0 g/dl (6.3-8.2); eGFR > 60.00
--- NOTE | 2025-03-31 07:32 | W.PN.UPDATE ---
Update Note
Progress Note Update
Patient continues with right elbow pain secondary to septic olecranon bursa with MRSA. Right elbow erythema noted along posterior aspect of the elbow and throughout the arm. Tenderness over the olecranon bursa. Range of motion 0 to 90 degrees
with pain mostly posteriorly. Distal neurovascular was intact. Dr. Coto plans on taking her to the OR today for excision right elbow bursa. She will remain NPO. Surgical location marked and surgical consent is signed.
[2025-03-31] MEDS: RESTASIS 0.05% OPHTHALMIC EMULSION 1 DROPS BOTH EYES ×2 (08:51→18:51)
[2025-03-31] MEDS: INDERAL LA 120 MG PO (08:52)
[2025-03-31] MEDS: PROTONIX 40 MG PO (08:53)
[2025-03-31] MEDS: FLOMAX 0.4 MG PO (08:54)
[2025-03-31] MEDS: THERAGRAN 1 TABLET PO (08:54)
[2025-03-31] MEDS: VITAMIN D3 (cholecalciferol) 25 MCG PO (08:54)
[2025-03-31] MEDS: ZOLOFT 25 MG PO (08:55)
[2025-03-31] MEDS: LYRICA 100 MG PO ×2 (09:12→13:23)
[2025-03-31] MEDS: REFRESH EYE DROPS (PF) 1 DROPS BOTH EYES ×4 (09:24→22:22)
--- NOTE | 2025-03-31 10:01 | W.PN.ID1 ---
Date of Service
Date of Service: March 31, 2025
Today's Communication
Continue antibiotics. Await OR.
Assessment / Plan
Right arm cellulitis
Right olecranon bursitis
MRSA infection
Leukocytosis
Elevated CRP
HTN
Chronic dry eyes
Thyroid nodule
Restrictive lung disease
Migraine
Nephrolithiasis
Ovarian cyst
Recommendations:
Superficial wound culture from the right arm reveals presence of MRSA.
Continue daptomycin 500 mg IV q.24 hours. (d#3)
Statin held.
Orthopedics has evaluated the patient and she is tentatively scheduled for the OR today.
Upper extremity elevation as tolerated.
Monitor white count and temperature curve.
Follow pending blood cultures; no growth to date
Urine culture with diphtheroids; likely contaminant. No current urinary symptoms.
����������������������������������������������������������
Chief Complaint
-: Cellulitis and Other (right olecranon bursitis)
Subjective / Review of Systems
Patient seen and examined. Reports ongoing right elbow discomfort.
Review of Systems: No Fever and No Chills
Vital Signs / Physical Exam
Vital Signs
Vital Signs
Temp Pulse Resp BP Pulse Ox
99.1 F 91 18 141/78 92
03/31/25 08:07 03/31/25 08:52 03/31/25 08:07 03/31/25 08:52 03/31/25 08:07
Physical Exam
Constitutional: No Acute Distress, Comfortable and Non-toxic
Cardiovascular: S1/S2; Negative S3/S4
Pulmonary: Clear; Negative Wheezes or Rales
Gastrointestinal: Soft and Non Tender
Extremities: Other (Right arm with ongoing swelling and erythema of the forearm and arm proper.)
Musculoskeletal: Other (Significant swelling, erythema and marked tenderness of the olecranon bursa area. Possible fluctuance appreciated.)
Skin: Warm and Dry
Neurological: Awake and Alert
Psychological: Calm
Objective Data
Lab Data
Lab Results
03/31/25 05:26
03/31/25 05:26
ESR 12 mm/hour (0-20) 03/28/25 11:58
Estimated Creat Clear 51 ml/min 03/31/25 05:26
Lactic Acid Cancelled 03/28/25 16:00
Total Bilirubin 0.8 mg/dl (0.2-1.3) 03/31/25 05:26
AST 18 U/L (14-36) 03/31/25 05:26
ALT 14 U/L (0-35) 03/31/25 05:26
Alkaline Phosphatase 51 U/L (38-126) 03/31/25 05:26
C-Reactive Protein 163.50 mg/L (0.0-10.00) H 03/28/25 11:58
Most recent labs reviewed.
Micro Results:
03/28/25 12:01 Blood Culture - Preliminary
Blood/Venous No Growth in 48 hours- Final report to follow
03/28/25 11:58 Blood Culture - Preliminary
Blood/Venous No Growth in 48 hours- Final report to follow
03/28/25 12:01 Wound Culture - Final
Elbow - Right Staph aureus MRSA
Gram Stain - Final
03/28/25 15:40 Urine Culture - Final
Urine Diptheroids
Wound/abscess/other Cult Final 03/28/2025
Few Staph aureus MRSA
Organism 1 Staph aureus MRSA
1. Staph aureus MRSA
M.I.C. RX
--------- ---
Amoxicillin/Potas. Clavulanate <=4/2 R
Ampicillin >8 R
Clindamycin <=0.5 S
Gentamicin <=4 S
Erythromycin >4 R
Levofloxacin >4 R
Oxacillin >2 R
Tetracycline <=4 S
Trimethoprim/Sulfamethoxazole >2/38 R
Vancomycin 1 S
Imaging:
03/28/2025 X-ray right elbow: no acute fracture identified radiographically. Findings suggestive of lateral calcific tendinopathy. Large amount of soft tissue swelling is noted. Please see full dictation for additional detail.
[2025-03-31] MEDS: MUCINEX PO ×3 (11:05→21:15)
[2025-03-31] MEDS: CLARITIN 10 MG PO (11:05)
[2025-03-31] MEDS: OCEAN, SALINE MIST 2 SPRAYS NASAL (11:25)
--- NOTE | 2025-03-31 11:38 | W.PN.HOSP.TC ---
Today's Communication/Plan
-
Monitor mental status
See plan
OR today
Order MRI brain after surgery
Continue antibiotic
Monitor mental status
Assessment / Plan
Assessment / Plan
General: Well Developed, Well Nourished and No Apparent Distress
HEENT: NormoCephalic, Moist mucous membranes and Atraumatic
Respiratory: Clear
Cardiac: S1/S2 and Regular Rhythm; No Murmur or Rub
GI: Soft, Non Tender, Non Distended and Normal Bowel Sounds
Musculoskeletal: Other (R elbow erythema with radiation to upper arm and forearm, swollen. Mildly TTP. +R side Radial/ulna pulses. brisk capillary refill. ROM limited due to pain. )
Neuro: Awake, AO x 3 and Nonfocal/grossly intact
Psych: Calm
#Right elbow pain associated with erythema and swelling due to olecranon bursitis with superimposed cellulitis vs. septic bursitis
#Severe leukocytosis
Status post drainage in ER with 2 cc of fluid was removed
Follow-up on the culture data
wound culture + MRSA-ID switched to daptomycin. Statin held.
Orthopedic following; Plan for OR 03/31
Infectious disease following
Follow-up on the blood culture data
CRP elevated
R elbow xray-No acute fracture identified radiographically. Findings as above most suggestive of lateral calcific tendinopathy. Large amount of soft tissue swelling.
Defer CT vs. MRI to orthopedic if needed
Leukocytosis improved. Drop in hgb likely dilutional-received IVF.
Pain control.
Acute urinary retention
Per patient she has history of.
now with Cifuentes catheter
check renal/bladder US Without acute finding
start flomax
Change in mental status likely 2/2 concussion from recent fall she had where she came to hospital
Per son symptoms started after her ED visit after a fall on 03/23
CT 03/23 was neg for acute findings. check MRI
monitor mental status
#Mild hyperbilirubinemia
trend cmp. Now resolved
ast/alt wnl
#Primary hypertension
Cont losartan
#Chronic hyponatremia
stopped taking NaCl tablets 2 days ago on her own accord.
further drop, check urine studies
Hip osteoarthritis
Sees orthopedic Dr. Garcia for steroid injection
Mild restrictive lung disease
not on o2. stable on room air
sees Dr. Akers as outpatient
Chronic thrombocytopenia
trend platelets for now
Hypokalemia-replete/monitor
DVT ppx-lovenox sq
Full code
I spent a total of 52 minutes with the patient or on the floor. More than 50% of this time involved counseling and coordination of care.
Anticipated Discharge: > 48 hours
Subjective/Interval History
-
Date of Service: March 31, 2025
does have some discomfort
Objective Data
-
Labs:
Laboratory Results
03/31/25
05:26
WBC 7.7
Hgb 9.1 L
Hct 27.2 L
Plt Count 119 L
Sodium 129 L
Potassium 3.5
Chloride 103
Carbon Dioxide 27
BUN 14
Creatinine 0.5 L
Glucose 124 H
Calcium 7.9 L
Total Bilirubin 0.8
AST 18
ALT 14
Alkaline Phosphatase 51
Vital Signs:
Vital Signs
Temp Pulse Resp BP Pulse Ox
99.1 F 91 18 141/78 92
03/31/25 08:07 03/31/25 08:52 03/31/25 08:07 03/31/25 08:52 03/31/25 08:07
I&O
03/30/25 03/31/25 04/01/25
06:59 06:59 06:59
Intake Total 720 / 720 480 / 480
Output Total 1245 / 1245 800 / 800
Balance -525 / -525 -320 / -320
--- NOTE | 2025-03-31 12:28 | PTCARENOTE ---
Assumed care of pt from previous nurse. pt rue pain tolerable. Pt rue elevated, neurochecks wnl. Pt call morrell is within reach, pt rings sachin. will cont to monitor
--- NOTE | 2025-03-31 12:42 | CM ---
For OR today.
Continues IV antibiotics.
Cifuentes replaced.
Will need PT OT ordered rewritten postop.
PLAN Will depend on postop PT evals
[2025-03-31] MEDS: OCEAN, SALINE MIST NASAL ×3 (13:24→21:15)
[2025-03-31] MEDS: CUBICIN 10 MG IV (15:09)
[2025-03-31] MEDS: DILAUDID 0.5 MG IV (17:26)
--- NOTE | 2025-03-31 18:31 | PTCARENOTE ---
Rec'd pt from OR, very sleepy. able to respond to questions appropriately. Pt call morrell is within reach, pt ringing sachin. before procedure. bed alarm in place. will cont to monitor.
[2025-03-31] MEDS: LOVENOX 40 MG SC (18:51)
[2025-03-31] MEDS: COZAAR 50 MG PO (22:22)
[2025-03-31] MEDS: LYRICA 150 MG PO (22:22)
[2025-04-01 05:53] LABS: Hematocrit 28.8 % (37.0-47.0); Hemoglobin 9.7 g/dL (12.0-16.0); Mean Corp Hgb Conc. 33.7 g/dL (33.0-37.0); Mean Corpuscular Volume 92.0 fL (81.0-99.0); Nucleated Red Blood Cells % 0 %; Platelet Count 151 10^3/uL (130-400); Red Cell Dist. Width 13.1 % (11.5-14.5)
[2025-04-01 06:22] LABS: ALT (SGPT) 18 U/L (0-35); AST (SGOT) 22 U/L (14-36); Albumin 3.2 g/dl (3.5-5.0); Alkaline Phosphatase 50 U/L (38-126); Blood Urea Nitrogen 16 mg/dl (7-17); Calcium 7.6 mg/dl (8.4-10.2); Carbon Dioxide 25 mmol/L (22-30); Chloride 103 mmol/L (98-107); Estimated Creatinine Clearance 51 ml/min; Glucose 136 mg/dl (70-99); Potassium 4.5 mmol/L (3.5-5.1); Sodium 131 mmol/L (135-145); Total Protein 5.5 g/dl (6.3-8.2); eGFR > 60.00
[2025-04-01] MEDS: RESTASIS 0.05% OPHTHALMIC EMULSION 1 DROPS BOTH EYES ×2 (06:34→20:37)
[2025-04-01 07:00] VITALS: BP 127/74
[2025-04-01] MEDS: OCEAN, SALINE MIST 2 SPRAYS NASAL ×2 (08:13→21:25)
[2025-04-01] MEDS: FLOMAX 0.4 MG PO (08:15)
[2025-04-01] MEDS: PROTONIX 40 MG PO (08:15)
[2025-04-01] MEDS: LYRICA 100 MG PO ×2 (08:15→12:12)
[2025-04-01] MEDS: THERAGRAN 1 TABLET PO (08:15)
[2025-04-01] MEDS: INDERAL LA 120 MG PO (08:15)
[2025-04-01] MEDS: VITAMIN D3 (cholecalciferol) 25 MCG PO (08:15)
[2025-04-01] MEDS: REFRESH EYE DROPS (PF) 1 DROPS BOTH EYES ×4 (08:15→21:23)
[2025-04-01] MEDS: MUCINEX 600 MG PO ×2 (08:15→20:36)
[2025-04-01] MEDS: ZOLOFT 25 MG PO (08:15)
--- NOTE | 2025-04-01 08:24 | W.PN.ORTHO ---
Today's Communication / Plan
-
Appreciate the primary/risk control consultant team, continue Tx
Dispo per CM, which is appreciated
Trend fever curve, WBC
Continue IV ABX (Daptomycin)
Trend intra-op Cx data (GS with rare GPC) to guide continued ABX therapy
Lovenox for DVT ppx, per primary
Gentle ROM right elbow, avoid deep flexion/no lifting/WB RUE
Dressings left in place today, may change once over the weekend
Pain control
Outpatient Ortho follow-up 1-2 weeks
Will follow
Assessment
.
Distal Motor Intact: Yes
Dressing:
Clean, dry and intact. Soft dressing in place right elbow
Assessment:
POD# 1 Right elbow I&D
Plan
.
Surgery / Date: Right elbow I&D 13 No 25 (Nnamdi)
DVT Prophylaxis: Lovenox
Activity:
Out of bed ad sandro
Gentle ROM of elbow OK. Avoid deep flexion. No lifting or WB
Discharge Plan: Other (Appreciate CM)
Subjective
.
.:
Patient resting comfortably this AM. Right elbow a little sore, but better
Vital Signs and Labs
.
Vital Signs and Labs:
Lab Results
04/01/25 05:27
04/01/25 05:27
Temp Pulse Resp BP Pulse Ox
97.6 F 82 18 127/74 95
04/01/25 07:00 04/01/25 08:15 04/01/25 07:00 04/01/25 08:15 04/01/25 07:00
--- NOTE | 2025-04-01 09:22 | CM ---
CM reviewed chart, care ongoing.
Patient will need PT/OT ordered postop.
Patient remains on IV antibiotics.
CM will continue to follow for d/c planning needs.
PLAN: Will depend on postop PT evaluations
--- NOTE | 2025-04-01 10:58 | W.PN.ID1 ---
Date of Service
Date of Service: April 01, 2025
Today's Communication
Continue antibiotics. Await pending cultures.
Assessment / Plan
Right arm cellulitis
Right olecranon bursitis
MRSA infection
Leukocytosis
Elevated CRP
HTN
Chronic dry eyes
Thyroid nodule
Restrictive lung disease
Migraine
Nephrolithiasis
Ovarian cyst
Recommendations:
Superficial wound culture from the right arm reveals presence of MRSA.
Patient's status post I&D 03/31/2025. Deep cultures obtained.
Continue daptomycin 500 mg IV q.24 hours. (d#4)
Statin held.
Upper extremity elevation as tolerated.
Monitor white count and temperature curve.
Follow pending blood cultures; no growth to date
Urine culture with diphtheroids; likely contaminant. No current urinary symptoms.
����������������������������������������������������������
Chief Complaint
-: Cellulitis and Other (right olecranon bursitis)
Subjective / Review of Systems
Review of Systems: No Fever
Vital Signs / Physical Exam
Vital Signs
Vital Signs
Temp Pulse Resp BP Pulse Ox
97.6 F 82 18 127/74 95
04/01/25 07:00 04/01/25 08:15 04/01/25 07:00 04/01/25 08:15 04/01/25 10:16
Physical Exam
Constitutional: No Acute Distress, Comfortable and Non-toxic
Cardiovascular: S1/S2; Negative S3/S4
Pulmonary: Non Labored
Gastrointestinal: Soft, Non Distended and Normal Bowel Sounds
Wound: Other (Right arm dressed in Michael wrap.)
Psychological: Calm
Objective Data
Lab Data
Lab Results
04/01/25 05:27
04/01/25 05:27
ESR 12 mm/hour (0-20) 03/28/25 11:58
Estimated Creat Clear 51 ml/min 04/01/25 05:27
Lactic Acid Cancelled 03/28/25 16:00
Total Bilirubin 0.8 mg/dl (0.2-1.3) 04/01/25 05:27
AST 22 U/L (14-36) 04/01/25 05:27
ALT 18 U/L (0-35) 04/01/25 05:27
Alkaline Phosphatase 50 U/L (38-126) 04/01/25 05:27
C-Reactive Protein 163.50 mg/L (0.0-10.00) H 03/28/25 11:58
Most recent labs reviewed.
Micro Results:
03/31/25 17:00 Wound Culture - Pending
Elbow - Right Gram Stain - Preliminary
03/31/25 17:00 Anaerobic Culture - Pending
Elbow - Right
03/28/25 12:01 Blood Culture - Preliminary
Blood/Venous No Growth in 72 hours- Final report to follow
03/28/25 11:58 Blood Culture - Preliminary
Blood/Venous No Growth in 72 hours- Final report to follow
03/28/25 12:01 Wound Culture - Final
Elbow - Right Staph aureus MRSA
Gram Stain - Final
03/28/25 15:40 Urine Culture - Final
Urine Diptheroids
Wound/abscess/other Cult Final 03/28/2025
Few Staph aureus MRSA
Organism 1 Staph aureus MRSA
1. Staph aureus MRSA
M.I.C. RX
--------- ---
Amoxicillin/Potas. Clavulanate <=4/2 R
Ampicillin >8 R
Clindamycin <=0.5 S
Gentamicin <=4 S
Erythromycin >4 R
Levofloxacin >4 R
Oxacillin >2 R
Tetracycline <=4 S
Trimethoprim/Sulfamethoxazole > R
Vancomycin 1 S
Imaging:
03/28/2025 X-ray right elbow: no acute fracture identified radiographically. Findings suggestive of lateral calcific tendinopathy. Large amount of soft tissue swelling is noted. Please see full dictation for additional detail.
--- NOTE | 2025-04-01 11:46 | W.PN.HOSP.TC ---
Addendum entered and electronically signed by Nick Kearns MD 04/01/25 13:06:
Asymptomatic pyuria
Original Note:
Today's Communication/Plan
-
Monitor vitals
See plan
Continue with antibiotic
Follow IntraOp culture
Check MRI brain
Monitor mental status
Assessment / Plan
Assessment / Plan
General: Well Developed, Well Nourished and No Apparent Distress
HEENT: NormoCephalic, Moist mucous membranes and Atraumatic
Respiratory: Clear
Cardiac: S1/S2 and Regular Rhythm; No Murmur or Rub
GI: Soft, Non Tender, Non Distended and Normal Bowel Sounds
Musculoskeletal: Other (R elbow erythema with radiation to upper arm and forearm, swollen. Mildly TTP. +R side Radial/ulna pulses. brisk capillary refill. ROM limited due to pain. )
Neuro: Awake, AO x 3 and Nonfocal/grossly intact
Psych: Calm
#Right elbow pain associated with erythema and swelling due to olecranon bursitis with superimposed cellulitis vs. septic bursitis
#Severe leukocytosis
Status post drainage in ER with 2 cc of fluid was removed
Follow-up on the culture data
wound culture + MRSA-ID switched to daptomycin. Statin held.
Orthopedic following; s/p OR 03/31. follow intraop cx
Infectious disease following
bcx NGTD
CRP elevated
R elbow xray-No acute fracture identified radiographically. Findings as above most suggestive of lateral calcific tendinopathy. Large amount of soft tissue swelling.
Defer CT vs. MRI to orthopedic if needed
Leukocytosis improved. Drop in hgb likely dilutional-received IVF.
Pain control.
Acute urinary retention
Per patient she has history of.
now with Cifuentes catheter
check renal/bladder US Without acute finding
started flomax
Change in mental status likely 2/2 concussion from recent fall she had where she came to hospital
Per son symptoms started after her ED visit after a fall on 03/23
CT 03/23 was neg for acute findings. check MRI
monitor mental status
#Mild hyperbilirubinemia
trend cmp. Now resolved
ast/alt wnl
#Primary hypertension
Cont losartan
#Chronic hyponatremia
stopped taking NaCl tablets 2 days ago on her own accord.
now 131
Hip osteoarthritis
Sees orthopedic Dr. Garcia for steroid injection
Mild restrictive lung disease
not on o2. stable on room air
sees Dr. Akers as outpatient
Chronic thrombocytopenia
trend platelets for now
Hypokalemia-replete/monitor
DVT ppx-lovenox sq
Full code
I spent a total of 51 minutes with the patient or on the floor. More than 50% of this time involved counseling and coordination of care.
Anticipated Discharge: 24 - 48 hours
Subjective/Interval History
-
Date of Service: April 01, 2025
denies nausea
Objective Data
-
Labs:
Laboratory Results
04/01/25
05:27
WBC 5.8
Hgb 9.7 L
Hct 28.8 L
Plt Count 151 D
Sodium 131 L
Potassium 4.5 D
Chloride 103
Carbon Dioxide 25
BUN 16
Creatinine 0.5 L
Glucose 136 H
Calcium 7.6 L
Total Bilirubin 0.8
AST 22
ALT 18
Alkaline Phosphatase 50
Vital Signs:
Vital Signs
Temp Pulse Resp BP Pulse Ox
97.6 F 82 18 127/74 95
04/01/25 07:00 04/01/25 08:15 04/01/25 07:00 04/01/25 08:15 04/01/25 10:16
I&O
03/31/25 04/01/25 04/02/25
06:59 06:59 06:59
Intake Total 480 / 480
Output Total 800 / 800 100 / 100
Balance -320 / -320 -100 / -100
[2025-04-01] MEDS: OCEAN, SALINE MIST NASAL ×2 (12:12→17:04)
--- NOTE | 2025-04-01 12:35 | PN.CDI ---
CDI
- -
CDI:
Physician Documentation Request
Admit Date: 03/28/25 13:56
Dear Doctor Nnamdi,
Please review the following and provide your response in the progress notes.
03/31 patient underwent Right olecranon bursectomy, irrigation and debridement.
Could you provide, in the progress notes further clarification regarding the debridement.
Please specify the type of debridement performed:
1. Excisional Debridement - defined as removal by excision of devitalized tissue, necrosis or slough
2. Non-excisional debridement - defined as removal of devitalized tissue, necrosis or slough by such methods as irrigation, brushing, scrubbing or washing.
If the debridement was excisional, please also include:
What was excised (necrotic tissue, gangrenous tissue, slough etc.)
For excisional or non-excisional, please also include:
1. Depth of debridement (skin, subcutaneous tissue, fascia, muscle, bone etc)
2. Size and appearance of the wound (L, W, D, color of wound, drainage)
Use of terms such as suspected, likely, concern for, or probable (associated with a specific diagnosis that is being evaluated, monitored, or treated as if it exists) are acceptable and can be coded in the inpatient setting, when documented at the
time of discharge.
Thank you,
Lily Cha RN, BSN
CDI Specialist
tiger text
Please use your independent medical judgment in providing your response.
--- NOTE | 2025-04-01 12:42 | PN.CDI ---
CDI
- -
CDI:
Physician Documentation Request
Admit Date: 03/28/25 13:56
Dear Doctor Som,
Patient presented with right elbow pain
Urine culture positive for Diptheroids,
UA results:
Laboratory Tests
03/28/25
15:40
Urine Color Yellow
Urine Clarity Slightly cloudy
Ur Occult Blood Reflex 1+ A
Urine Nitrite (Reflex) Positive A
Leukocyte Esterase Rfl 3+ A
Urine WBC (Reflex) 26-30 A
Urine Bacteria (Reflex) Many A
Based on the above, could you please provide a diagnosis, that supports the above lab abnormalities and additional evaluation, monitoring:
UTI
Asymptomatic bacteruria
Other
Use of terms such as suspected, likely, concern for, or probable (associated with a specific diagnosis that is being evaluated, monitored, or treated as if it exists) are acceptable and can be coded in the inpatient setting, when documented at the
time of discharge.
Thank you,
Lily Cha RN, BSN
CDI Specialist
tiger text
Please use your independent medical judgment in providing your response.
[2025-04-01 15:00] VITALS: BP 115/56
[2025-04-01] MEDS: CUBICIN 10 MG IV (15:41)
[2025-04-01 16:26] VITALS: BP 137/71; PULSE 86; O2SAT 96
[2025-04-01] MEDS: LOVENOX 40 MG SC (17:03)
[2025-04-01] MEDS: LYRICA 150 MG PO (21:23)
[2025-04-01] MEDS: ULTRAM 50 MG PO (21:24)
[2025-04-01] MEDS: COZAAR PO (22:44)
[2025-04-01 23:00] VITALS: BP 117/61
[2025-04-02] MEDS: RESTASIS 0.05% OPHTHALMIC EMULSION 1 DROPS BOTH EYES (06:05)
[2025-04-02 07:00] VITALS: BP 130/79
[2025-04-02 07:16] LABS: Hematocrit 27.2 % (37.0-47.0); Hemoglobin 8.8 g/dL (12.0-16.0); Mean Corp Hgb Conc. 32.4 g/dL (33.0-37.0); Mean Corpuscular Volume 93.8 fL (81.0-99.0); Nucleated Red Blood Cells % 0 %; Platelet Count 132 10^3/uL (130-400); Red Cell Dist. Width 13.2 % (11.5-14.5)
[2025-04-02 07:31] LABS: ALT (SGPT) 24 U/L (0-35); AST (SGOT) 30 U/L (14-36); Albumin 2.9 g/dl (3.5-5.0); Alkaline Phosphatase 43 U/L (38-126); Blood Urea Nitrogen 21 mg/dl (7-17); Calcium 7.9 mg/dl (8.4-10.2); Carbon Dioxide 29 mmol/L (22-30); Chloride 103 mmol/L (98-107); Estimated Creatinine Clearance 51 ml/min; Glucose 106 mg/dl (70-99); Potassium 3.9 mmol/L (3.5-5.1); Sodium 132 mmol/L (135-145); Total Protein 5.1 g/dl (6.3-8.2); eGFR > 60.00
[2025-04-02] MEDS: INDERAL LA 120 MG PO (08:39)
[2025-04-02] MEDS: ZOLOFT 25 MG PO (08:39)
[2025-04-02] MEDS: FLOMAX 0.4 MG PO (08:40)
[2025-04-02] MEDS: THERAGRAN 1 TABLET PO (08:40)
[2025-04-02] MEDS: PROTONIX 40 MG PO (08:41)
[2025-04-02] MEDS: VITAMIN D3 (cholecalciferol) 25 MCG PO (08:41)
[2025-04-02] MEDS: MUCINEX 600 MG PO ×3 (08:41→21:43)
[2025-04-02] MEDS: OCEAN, SALINE MIST 2 SPRAYS NASAL ×3 (08:42→21:47)
[2025-04-02] MEDS: REFRESH EYE DROPS (PF) 1 DROPS BOTH EYES ×4 (08:43→21:45)
[2025-04-02] MEDS: LYRICA 100 MG PO ×2 (08:53→12:43)
--- NOTE | 2025-04-02 12:09 | W.PN.ID1 ---
Date of Service
Date of Service: April 02, 2025
Today's Communication
continue daptomycin
Assessment / Plan
Right arm cellulitis
Right olecranon bursitis
MRSA infection
Leukocytosis
Elevated CRP
HTN
Chronic dry eyes
Thyroid nodule
Restrictive lung disease
Migraine
Nephrolithiasis
Ovarian cyst
Recommendations:
Superficial wound culture from the right arm reveals presence of MRSA.
Patient's status post I&D 03/31/2025. Deep cultures obtained also with MRSA
Continue daptomycin 500 mg IV q.24 hours. (d#5)
Statin held.
CPK friday
Upper extremity elevation as tolerated.
Monitor white count and temperature curve.
Follow pending blood cultures; no growth to date
Urine culture with diphtheroids; likely contaminant. No current urinary symptoms.
����������������������������������������������������������
Chief Complaint
-: Cellulitis and Other (right olecranon bursitis)
Subjective / Review of Systems
afebrile
bp stable
MRI brain no acute abnormality
Vital Signs / Physical Exam
Vital Signs
Vital Signs
Temp Pulse Resp BP Pulse Ox
98 F 81 18 130/79 94
04/02/25 07:00 04/02/25 07:00 04/02/25 07:00 04/02/25 07:00 04/02/25 07:00
Physical Exam
Constitutional: No Acute Distress
Cardiovascular: Regular Rate and S1/S2; Negative Murmur or Rub
Pulmonary: Clear and Symmetric; Negative Wheezes or Rales
Gastrointestinal: Soft, Non Tender, Non Distended and Normal Bowel Sounds
Musculoskeletal: Other (dressing clean, dry, intact)
Skin: Warm and Dry; Negative Rash or Jaundice
Objective Data
Lab Data
Lab Results
04/02/25 06:34
04/02/25 06:34
ESR 12 mm/hour (0-20) 03/28/25 11:58
Estimated Creat Clear 51 ml/min 04/02/25 06:34
Lactic Acid Cancelled 03/28/25 16:00
Total Bilirubin 0.4 mg/dl (0.2-1.3) 04/02/25 06:34
AST 30 U/L (14-36) 04/02/25 06:34
ALT 24 U/L (0-35) 04/02/25 06:34
Alkaline Phosphatase 43 U/L (38-126) 04/02/25 06:34
C-Reactive Protein 163.50 mg/L (0.0-10.00) H 03/28/25 11:58
Most recent labs reviewed.
Micro Results:
03/28/25 11:58 Blood Culture - Final
Blood/Venous No Growth - Final Report
03/28/25 12:01 Blood Culture - Preliminary
Blood/Venous No Growth in 4 days- Final report to follow
03/31/25 17:00 Wound Culture - Preliminary
Elbow - Right Staph aureus MRSA
Gram Stain - Preliminary
03/31/25 17:00 Anaerobic Culture - Preliminary
Elbow - Right Culture pending. Anaerobic cultures are examined after 3
days incubation. Additional information to follow.
03/28/25 12:01 Wound Culture - Final
Elbow - Right Staph aureus MRSA
Gram Stain - Final
03/28/25 15:40 Urine Culture - Final
Urine Diptheroids
Wound/abscess/other Cult Final 03/28/2025
Few Staph aureus MRSA
Organism 1 Staph aureus MRSA
1. Staph aureus MRSA
M.I.C. RX
--------- ---
Amoxicillin/Potas. Clavulanate <=4/2 R
Ampicillin >8 R
Clindamycin <=0.5 S
Gentamicin <=4 S
Erythromycin >4 R
Levofloxacin >4 R
Oxacillin >2 R
Tetracycline <=4 S
Trimethoprim/Sulfamethoxazole >2/38 R
Vancomycin 1 S
Imaging:
03/28/2025 X-ray right elbow: no acute fracture identified radiographically. Findings suggestive of lateral calcific tendinopathy. Large amount of soft tissue swelling is noted. Please see full dictation for additional detail.
--- NOTE | 2025-04-02 12:27 | W.PN.HOSP.TC ---
Today's Communication/Plan
-
Assessment / Plan
Assessment / Plan
General: Well Developed, Well Nourished and No Apparent Distress
HEENT: NormoCephalic, Moist mucous membranes and Atraumatic
Respiratory: Clear
Cardiac: S1/S2 and Regular Rhythm; No Murmur or Rub
GI: Soft, Non Tender, Non Distended and Normal Bowel Sounds
Musculoskeletal: Other (R elbow erythema with radiation to upper arm and forearm, swollen. Mildly TTP. +R side Radial/ulna pulses. brisk capillary refill. ROM limited due to pain. )
Neuro: Awake, AO x 3 and Nonfocal/grossly intact
Psych: Calm
#Right elbow pain associated with erythema and swelling due to olecranon bursitis with superimposed cellulitis vs. septic bursitis
#Severe leukocytosis
Status post drainage in ER with 2 cc of fluid was removed
Follow-up on the culture data
wound culture + MRSA-ID switched to daptomycin. Statin held.
Orthopedic following; s/p OR 03/31.
Infectious disease following
bcx NGTD
CRP elevated
R elbow xray-No acute fracture identified radiographically. Findings as above most suggestive of lateral calcific tendinopathy. Large amount of soft tissue swelling.
Defer CT vs. MRI to orthopedic if needed
Leukocytosis improved. Drop in hgb likely dilutional-received IVF.
Pain control.
Acute urinary retention
Per patient she has history of.
now with Cifuentes catheter
check renal/bladder US Without acute finding
started flomax
Change in mental status likely 2/2 concussion from recent fall she had where she came to hospital
Per son symptoms started after her ED visit after a fall on 03/23
CT 03/23 was neg for acute findings. check MRI
monitor mental status
#Mild hyperbilirubinemia
trend cmp. Now resolved
ast/alt wnl
#Primary hypertension
Cont losartan
#Chronic hyponatremia
stopped taking NaCl tablets 2 days ago on her own accord.
now 131
Hip osteoarthritis
Sees orthopedic Dr. Garcia for steroid injection
Mild restrictive lung disease
not on o2. stable on room air
sees Dr. Akers as outpatient
Chronic thrombocytopenia
trend platelets for now
Hypokalemia-replete/monitor
DVT ppx-lovenox sq
Full code
Anticipated Discharge: > 48 hours
Subjective/Interval History
-
Date of Service: April 02, 2025
seen and examined. no new complaints. no acute overnight events
c/o ight elbow dressing as itchy and irritated, ongoing
-surgical dressing, notified michele to change or to have ortho come by to change dressing
Objective Data
-
Labs:
Laboratory Results
04/02/25
06:34
WBC 6.1
Hgb 8.8 L
Hct 27.2 L
Plt Count 132
Sodium 132 L
Potassium 3.9
Chloride 103
Carbon Dioxide 29
BUN 21 H
Creatinine 0.6
Glucose 106 H
Calcium 7.9 L
Total Bilirubin 0.4
AST 30
ALT 24
Alkaline Phosphatase 43
Vital Signs:
Vital Signs
Temp Pulse Resp BP Pulse Ox
98 F 81 18 130/79 94
04/02/25 07:00 04/02/25 07:00 04/02/25 07:00 04/02/25 07:00 04/02/25 07:00
I&O
04/01/25 04/02/25 04/03/25
06:59 06:59 06:59
Intake Total 960 / 960
Output Total 100 / 100 1175 / 1175
Balance -100 / -100 -215 / -215
[2025-04-02] MEDS: OCEAN, SALINE MIST NASAL (13:54)
[2025-04-02] MEDS: CUBICIN 10 MG IV (14:05)
[2025-04-02 15:00] VITALS: BP 120/74
[2025-04-02 16:02] VITALS: BP 146/105
[2025-04-02] MEDS: LOVENOX 40 MG SC (17:05)
--- NOTE | 2025-04-02 21:14 | W.PN.ORTHO ---
Today's Communication / Plan
-
PT/OT
Ice with elevation to control swelling and pain
Nursing may do daily dressing change
Daptomycin per ID recommendations
Follow-up [address] Coto to check her progress
Orthopedics to sign off
Assessment
.
Distal Motor Intact: Yes
Dressing:
see exam-new dressing applied
Plan
.
Surgery / Date: Right elbow I&D (Nnamdi)
DVT Prophylaxis: Lovenox
Activity:
Out of bed.
PT/OT
Discharge Plan: Home
Subjective
.
.:
Late note entry-patient seen 04/02/25 at 3pm
Patient resting comfortably. She relates that the pain, swelling and redness in the right upper extremity is improving dramatically.
Vital Signs and Labs
.
Vital Signs and Labs:
Lab Results
04/02/25 06:34
04/02/25 06:34
Temp Pulse Resp BP Pulse Ox
98.0 F 70 18 120/74 95
04/02/25 15:00 04/02/25 15:00 04/02/25 15:00 04/02/25 15:00 04/02/25 15:00
Physical Exam
-
Right elbow dressing removed. Incision is clean, dry and intact. Minimal edema about the posterior aspect of the elbow without fluid accumulation in the olecranon bursal region. Passive motion nonpainful. Erythema improved dramatically
throughout the right upper extremity. Distal neurovascular was intact.
[2025-04-02] MEDS: LYRICA 150 MG PO (21:44)
[2025-04-02] MEDS: COZAAR 50 MG PO (21:44)
[2025-04-02] MEDS: RESTASIS 0.05% OPHTHALMIC EMULSION BOTH EYES (21:47)
[2025-04-02 23:37] VITALS: BP 137/76
[2025-04-03 07:00] VITALS: BP 140/84
[2025-04-03] MEDS: RESTASIS 0.05% OPHTHALMIC EMULSION 1 DROPS BOTH EYES ×2 (08:50→21:32)
[2025-04-03] MEDS: REFRESH EYE DROPS (PF) 1 DROPS BOTH EYES ×4 (08:51→22:46)
[2025-04-03] MEDS: LYRICA 100 MG PO ×2 (08:52→12:28)
[2025-04-03] MEDS: OCEAN, SALINE MIST 2 SPRAYS NASAL ×4 (08:52→21:35)
[2025-04-03] MEDS: THERAGRAN 1 TABLET PO (08:52)
[2025-04-03] MEDS: VITAMIN D3 (cholecalciferol) 25 MCG PO (08:52)
[2025-04-03] MEDS: ZOLOFT 25 MG PO (08:52)
[2025-04-03] MEDS: PROTONIX 40 MG PO (08:52)
[2025-04-03] MEDS: FLOMAX 0.4 MG PO (08:52)
[2025-04-03] MEDS: INDERAL LA 120 MG PO (08:56)
[2025-04-03 11:20] VITALS: BP 111/93; PULSE 86
[2025-04-03] MEDS: SENOKOT-S 1 TABLET PO (12:43)
--- NOTE | 2025-04-03 12:46 | W.PN.HOSP.TC ---
Today's Communication/Plan
-
ck friday per ID
Assessment / Plan
Assessment / Plan
General: Well Developed, Well Nourished and No Apparent Distress
HEENT: NormoCephalic, Moist mucous membranes and Atraumatic
Respiratory: Clear
Cardiac: S1/S2 and Regular Rhythm; No Murmur or Rub
GI: Soft, Non Tender, Non Distended and Normal Bowel Sounds
Musculoskeletal: Other (R elbow erythema with radiation to upper arm and forearm, swollen. Mildly TTP. +R side Radial/ulna pulses. brisk capillary refill. ROM limited due to pain. )
Neuro: Awake, AO x 3 and Nonfocal/grossly intact
Psych: Calm
#Right elbow pain associated with erythema and swelling due to olecranon bursitis with superimposed cellulitis vs. septic bursitis
#Severe leukocytosis
Status post drainage in ER with 2 cc of fluid was removed
Follow-up on the culture data
wound culture + MRSA-ID switched to daptomycin. Statin held.
Orthopedic following; s/p OR 03/31.
Infectious disease following
bcx NGTD
CRP elevated
R elbow xray-No acute fracture identified radiographically. Findings as above most suggestive of lateral calcific tendinopathy. Large amount of soft tissue swelling.
Defer CT vs. MRI to orthopedic if needed
Leukocytosis improved. Drop in hgb likely dilutional-received IVF.
Pain control.
Acute urinary retention
Per patient she has history of.
now with Cifuentes catheter
check renal/bladder US Without acute finding
started flomax
Change in mental status likely 2/2 concussion from recent fall she had where she came to hospital
Per son symptoms started after her ED visit after a fall on 03/23
CT 03/23 was neg for acute findings. check MRI
monitor mental status
#Mild hyperbilirubinemia
trend cmp. Now resolved
ast/alt wnl
#Primary hypertension
Cont losartan
#Chronic hyponatremia
stopped taking NaCl tablets 2 days ago on her own accord.
now 131
Hip osteoarthritis
Sees orthopedic Dr. Garcia for steroid injection
Mild restrictive lung disease
not on o2. stable on room air
sees Dr. Akers as outpatient
Chronic thrombocytopenia
trend platelets for now
Hypokalemia-replete/monitor
DVT ppx-lovenox sq
Full code
Anticipated Discharge: > 48 hours
Subjective/Interval History
-
Date of Service: April 03, 2025
seen and examined. no new complaints. no acute oernight events
Objective Data
-
Vital Signs:
Vital Signs
Temp Pulse Resp BP Pulse Ox
98.9 F 79 18 140/84 96
04/03/25 07:00 04/03/25 07:00 04/03/25 07:00 04/03/25 08:56 04/03/25 07:00
I&O
04/02/25 04/03/25 04/04/25
06:59 06:59 06:59
Intake Total 960 / 960 2039
Output Total 1175 / 1175 1999
Balance -215 / -215 40 / 40
[2025-04-03 13:23] VITALS: BP 111/93
[2025-04-03] MEDS: CUBICIN 10 MG IV (14:31)
[2025-04-03] MEDS: FLUSH (NSS) 2 FLUSH IV (14:32)
--- NOTE | 2025-04-03 14:42 | W.PN.ID1 ---
Date of Service
Date of Service: April 03, 2025
Today's Communication
continue daptomycin
Assessment / Plan
Right arm cellulitis
Right olecranon bursitis
MRSA infection
Leukocytosis
Elevated CRP
HTN
Chronic dry eyes
Thyroid nodule
Restrictive lung disease
Migraine
Nephrolithiasis
Ovarian cyst
Recommendations:
Superficial wound culture from the right arm reveals presence of MRSA.
Patient's status post I&D 03/31/2025. Deep cultures obtained also with MRSA
Continue daptomycin 500 mg IV q.24 hours. (d#6)
Statin held.
CPK friday
Upper extremity elevation as tolerated.
Monitor white count and temperature curve.
Follow pending blood cultures; no growth to date
Urine culture with diphtheroids; likely contaminant. No current urinary symptoms.
����������������������������������������������������������
Chief Complaint
-: Cellulitis and Other (right olecranon bursitis)
Subjective / Review of Systems
afebrile
bp stable
no complaints
Vital Signs / Physical Exam
Vital Signs
Vital Signs
Temp Pulse Resp BP Pulse Ox
98.9 F 79 18 140/84 96
04/03/25 07:00 04/03/25 07:00 04/03/25 07:00 04/03/25 08:56 04/03/25 07:00
Physical Exam
Constitutional: No Acute Distress
Cardiovascular: Regular Rate and S1/S2; Negative Murmur or Rub
Pulmonary: Clear and Symmetric; Negative Wheezes or Rales
Gastrointestinal: Soft, Non Tender, Non Distended and Normal Bowel Sounds
Skin: Warm and Dry; Negative Rash or Jaundice
Wound: Other (surgical site well approximated, no surrounding erythema, no drainage)
Lines: PIV
Objective Data
Lab Data
Lab Results
04/02/25 06:34
04/02/25 06:34
ESR 12 mm/hour (0-20) 03/28/25 11:58
Estimated Creat Clear 51 ml/min 04/02/25 06:34
Lactic Acid Cancelled 03/28/25 16:00
Total Bilirubin 0.4 mg/dl (0.2-1.3) 04/02/25 06:34
AST 30 U/L (14-36) 04/02/25 06:34
ALT 24 U/L (0-35) 04/02/25 06:34
Alkaline Phosphatase 43 U/L (38-126) 04/02/25 06:34
C-Reactive Protein 163.50 mg/L (0.0-10.00) H 03/28/25 11:58
Most recent labs reviewed.
Micro Results:
03/31/25 17:00 Anaerobic Culture - Preliminary
Elbow - Right NO ANAEROBES ISOLATED
03/31/25 17:00 Wound Culture - Preliminary
Elbow - Right Staph aureus MRSA
Gram Stain - Preliminary
03/28/25 12:01 Blood Culture - Final
Blood/Venous No Growth - Final Report
03/28/25 11:58 Blood Culture - Final
Blood/Venous No Growth - Final Report
03/28/25 12:01 Wound Culture - Final
Elbow - Right Staph aureus MRSA
Gram Stain - Final
03/28/25 15:40 Urine Culture - Final
Urine Diptheroids
Wound/abscess/other Cult Final 03/28/2025
Few Staph aureus MRSA
Organism 1 Staph aureus MRSA
1. Staph aureus MRSA
M.I.C. RX
--------- ---
Amoxicillin/Potas. Clavulanate <=4/2 R
Ampicillin >8 R
Clindamycin <=0.5 S
Gentamicin <=4 S
Erythromycin >4 R
Levofloxacin >4 R
Oxacillin >2 R
Tetracycline <=4 S
Trimethoprim/Sulfamethoxazole >2/38 R
Vancomycin 1 S
Imaging:
03/28/2025 X-ray right elbow: no acute fracture identified radiographically. Findings suggestive of lateral calcific tendinopathy. Large amount of soft tissue swelling is noted. Please see full dictation for additional detail.
[2025-04-03 15:00] VITALS: BP 123/59
[2025-04-03] MEDS: LOVENOX 40 MG SC (17:23)
[2025-04-03] MEDS: DULCOLAX 10 MG RECTAL (17:31)
[2025-04-03] MEDS: MUCINEX 600 MG PO (21:32)
[2025-04-03] MEDS: COZAAR 50 MG PO (21:32)
[2025-04-03] MEDS: LYRICA 150 MG PO (21:35)
[2025-04-03 23:00] VITALS: BP 158/64
[2025-04-04 07:30] VITALS: BP 153/98
[2025-04-04] MEDS: FLOMAX 0.4 MG PO (07:50)
[2025-04-04] MEDS: LYRICA 100 MG PO ×2 (07:50→12:22)
[2025-04-04] MEDS: THERAGRAN 1 TABLET PO (07:51)
[2025-04-04] MEDS: RESTASIS 0.05% OPHTHALMIC EMULSION 1 DROPS BOTH EYES ×2 (07:51→21:37)
[2025-04-04] MEDS: ZOLOFT 25 MG PO (07:51)
[2025-04-04] MEDS: MUCINEX 600 MG PO ×2 (07:51→21:38)
[2025-04-04] MEDS: REFRESH EYE DROPS (PF) 1 DROPS BOTH EYES ×4 (07:51→21:38)
[2025-04-04] MEDS: VITAMIN D3 (cholecalciferol) 25 MCG PO (07:51)
[2025-04-04] MEDS: PROTONIX 40 MG PO (07:51)
[2025-04-04] MEDS: OCEAN, SALINE MIST NASAL ×3 (07:52→17:35)
[2025-04-04] MEDS: INDERAL LA 120 MG PO (07:55)
--- NOTE | 2025-04-04 09:31 | W.PN.ID1 ---
Addendum entered and electronically signed by Arjun Broussard, 04/04/25 09:54:
Abx script placed on paper chart
Original Note:
Date of Service
Date of Service: April 04, 2025
Today's Communication
Continue daptomycin.
Assessment / Plan
Right arm cellulitis
Right olecranon bursitis
MRSA infection
Leukocytosis
Elevated CRP
HTN
Chronic dry eyes
Thyroid nodule
Restrictive lung disease
Migraine
Nephrolithiasis
Ovarian cyst
Recommendations:
Superficial wound culture from the right arm reveals presence of MRSA.
Patient's status post I&D 03/31/2025. Deep cultures obtained also with MRSA
Continue daptomycin 500 mg IV q.24 hours. (d#7)
Would continue with another 7 days of daptomycin (through 04/11), with subsequent transition to oral doxycycline 100 mg BID through 04/18/2025
Statin held while on dapto.
CPK = 27 (04/04/2025)
Upper extremity elevation as tolerated.
Urine culture with diphtheroids; likely contaminant. No current urinary symptoms.
����������������������������������������������������������
Chief Complaint
-: Cellulitis and Other (right olecranon bursitis)
Subjective / Review of Systems
Patient seen and examined. Reports right elbow is overall feeling improved, with less discomfort.
Review of Systems: No Fever and No Chills
Vital Signs / Physical Exam
Vital Signs
Vital Signs
Temp Pulse Resp BP Pulse Ox
97.8 F 78 18 153/98 96
04/04/25 07:30 04/04/25 07:55 04/04/25 07:30 04/04/25 07:55 04/04/25 07:30
Physical Exam
Constitutional: No Acute Distress, Comfortable and Non-toxic
Eyes: Sclera Anicteric
Cardiovascular: S1/S2; Negative S3/S4
Gastrointestinal: Soft, Non Tender and Non Distended
Extremities: Other (right arm with decreased erythema and edema. Incision site C/D/I with surtures. No drainage. )
Neurological: Awake and Alert
Psychological: Calm
Objective Data
Lab Data
Lab Results
04/02/25 06:34
04/02/25 06:34
ESR 12 mm/hour (0-20) 03/28/25 11:58
Estimated Creat Clear 51 ml/min 04/02/25 06:34
Lactic Acid Cancelled 03/28/25 16:00
Total Bilirubin 0.4 mg/dl (0.2-1.3) 04/02/25 06:34
AST 30 U/L (14-36) 04/02/25 06:34
ALT 24 U/L (0-35) 04/02/25 06:34
Alkaline Phosphatase 43 U/L (38-126) 04/02/25 06:34
C-Reactive Protein 163.50 mg/L (0.0-10.00) H 03/28/25 11:58
Most recent labs reviewed.
Micro Results:
03/31/25 17:00 Anaerobic Culture - Preliminary
Elbow - Right NO ANAEROBES ISOLATED
03/31/25 17:00 Wound Culture - Preliminary
Elbow - Right Staph aureus MRSA
Gram Stain - Preliminary
03/28/25 12:01 Blood Culture - Final
Blood/Venous No Growth - Final Report
03/28/25 11:58 Blood Culture - Final
Blood/Venous No Growth - Final Report
03/28/25 12:01 Wound Culture - Final
Elbow - Right Staph aureus MRSA
Gram Stain - Final
03/28/25 15:40 Urine Culture - Final
Urine Diptheroids
Wound/abscess/other Cult Final 03/28/2025
Few Staph aureus MRSA
Organism 1 Staph aureus MRSA
1. Staph aureus MRSA
M.I.C. RX
--------- ---
Amoxicillin/Potas. Clavulanate <=4/2 R
Ampicillin >8 R
Clindamycin <=0.5 S
Gentamicin <=4 S
Erythromycin >4 R
Levofloxacin >4 R
Oxacillin >2 R
Tetracycline <=4 S
Trimethoprim/Sulfamethoxazole >2/38 R
Vancomycin 1 S
Imaging:
03/28/2025 X-ray right elbow: no acute fracture identified radiographically. Findings suggestive of lateral calcific tendinopathy. Large amount of soft tissue swelling is noted. Please see full dictation for additional detail.
[2025-04-04] MEDS: MIRALAX 17 GRAMS PO (12:23)
[2025-04-04] MEDS: CUBICIN 10 MG IV (14:01)
--- NOTE | 2025-04-04 15:27 | W.PN.HOSP.TC ---
Today's Communication/Plan
-
Assessment / Plan
Assessment / Plan
General: Well Developed, Well Nourished and No Apparent Distress
HEENT: NormoCephalic, Moist mucous membranes and Atraumatic
Respiratory: Clear
Cardiac: S1/S2 and Regular Rhythm; No Murmur or Rub
GI: Soft, Non Tender, Non Distended and Normal Bowel Sounds
Musculoskeletal: Other (R elbow erythema with radiation to upper arm and forearm, swollen. Mildly TTP. +R side Radial/ulna pulses. brisk capillary refill. ROM limited due to pain. )
Neuro: Awake, AO x 3 and Nonfocal/grossly intact
Psych: Calm
#Right elbow pain associated with erythema and swelling due to olecranon bursitis with superimposed cellulitis vs. septic bursitis
#Severe leukocytosis
Status post drainage in ER with 2 cc of fluid was removed
Follow-up on the culture data
wound culture + MRSA-ID switched to daptomycin. Statin held.
Orthopedic following; s/p OR 03/31.
Infectious disease following
bcx NGTD
CRP elevated
R elbow xray-No acute fracture identified radiographically. Findings as above most suggestive of lateral calcific tendinopathy. Large amount of soft tissue swelling.
Defer CT vs. MRI to orthopedic if needed
Leukocytosis improved. Drop in hgb likely dilutional-received IVF.
Pain control.
Acute urinary retention
Per patient she has history of.
now with Cifuentes catheter
check renal/bladder US Without acute finding
started flomax
Change in mental status likely 2/2 concussion from recent fall she had where she came to hospital
Per son symptoms started after her ED visit after a fall on 03/23
CT 03/23 was neg for acute findings. check MRI
monitor mental status
#Mild hyperbilirubinemia
trend cmp. Now resolved
ast/alt wnl
#Primary hypertension
Cont losartan
#Chronic hyponatremia
stopped taking NaCl tablets 2 days ago on her own accord.
now 131
Hip osteoarthritis
Sees orthopedic Dr. Garcia for steroid injection
Mild restrictive lung disease
not on o2. stable on room air
sees Dr. Akers as outpatient
Chronic thrombocytopenia
trend platelets for now
Hypokalemia-replete/monitor
DVT ppx-lovenox sq
Full code
For SNF, pending
Anticipated Discharge: Today
Subjective/Interval History
-
Date of Service: April 04, 2025
seen and examiend. no new complaints. no acute ovenright events
Objective Data
-
Vital Signs:
Vital Signs
Temp Pulse Resp BP Pulse Ox
97.8 F 78 18 153/98 96
04/04/25 07:30 04/04/25 07:55 04/04/25 07:30 04/04/25 07:55 04/04/25 10:05
I&O
04/03/25 04/04/25 04/05/25
06:59 06:59 06:59
Intake Total 2039 1260 / 1260
Output Total 1999 1250 / 1250
Balance 40 / 40 10 / 10
--- NOTE | 2025-04-04 15:39 | CM ---
PT eval indicates SNF .
Spoke with patient in room .
Reviewed Pac data with patient .
[facility] picked [facility]. Referrals in care port.
Current with IV antibiotics.
PLAN To Snf after located
[2025-04-04 16:22] VITALS: BP 124/72
[2025-04-04] MEDS: LOVENOX 40 MG SC (17:35)
[2025-04-04] MEDS: LYRICA 150 MG PO (21:37)
[2025-04-04] MEDS: OCEAN, SALINE MIST 2 SPRAYS NASAL (21:37)
[2025-04-04] MEDS: COZAAR 50 MG PO (21:38)
[2025-04-04 23:00] VITALS: BP 176/80
[2025-04-04 23:52] VITALS: BP 162/87
[2025-04-05 06:20] LABS: Hematocrit 31.2 % (37.0-47.0); Hemoglobin 10.4 g/dL (12.0-16.0); Mean Corp Hgb Conc. 33.3 g/dL (33.0-37.0); Mean Corpuscular Volume 91.8 fL (81.0-99.0); Platelet Count 195 10^3/uL (130-400); Red Cell Dist. Width 13.2 % (11.5-14.5)
[2025-04-05 06:40] LABS: Blood Urea Nitrogen 12 mg/dl (7-17); Calcium 9.1 mg/dl (8.4-10.2); Carbon Dioxide 30 mmol/L (22-30); Chloride 102 mmol/L (98-107); Estimated Creatinine Clearance 51 ml/min; Glucose 117 mg/dl (70-99); Potassium 4.4 mmol/L (3.5-5.1); Sodium 135 mmol/L (135-145); eGFR > 60.00
[2025-04-05 07:43] VITALS: BP 141/78
[2025-04-05] MEDS: THERAGRAN 1 TABLET PO (09:00)
[2025-04-05] MEDS: PROTONIX 40 MG PO (09:00)
[2025-04-05] MEDS: VITAMIN D3 (cholecalciferol) 25 MCG PO (09:00)
[2025-04-05] MEDS: INDERAL LA 120 MG PO (09:00)
[2025-04-05] MEDS: ZOLOFT 25 MG PO (09:00)
[2025-04-05] MEDS: REFRESH EYE DROPS (PF) 1 DROPS BOTH EYES ×2 (09:01→12:31)
[2025-04-05] MEDS: RESTASIS 0.05% OPHTHALMIC EMULSION 1 DROPS BOTH EYES (09:01)
[2025-04-05] MEDS: FLOMAX 0.4 MG PO (09:01)
[2025-04-05] MEDS: MUCINEX 600 MG PO (09:01)
[2025-04-05] MEDS: LYRICA 100 MG PO ×2 (09:02→12:31)
[2025-04-05] MEDS: OCEAN, SALINE MIST 2 SPRAYS NASAL (09:12)
--- NOTE | 2025-04-05 10:39 | W.PN.ID1 ---
Date of Service
Date of Service: April 05, 2025
Today's Communication
Continue antibiotics.
Assessment / Plan
Right arm cellulitis
Right olecranon bursitis
MRSA infection
Leukocytosis
Elevated CRP
HTN
Chronic dry eyes
Thyroid nodule
Restrictive lung disease
Migraine
Nephrolithiasis
Ovarian cyst
Recommendations:
Superficial wound culture from the right arm reveals presence of MRSA.
Patient's status post I&D 03/31/2025. Deep cultures obtained also with MRSA
Continue daptomycin 500 mg IV q.24 hours. (d#8)
Would continue with another 7 days of daptomycin (through 04/11), with subsequent transition to oral doxycycline 100 mg BID through 04/18/2025
Statin held while on dapto.
CPK = 27 (04/04/2025)
Upper extremity elevation as tolerated. Continue with Michael wrap.
Urine culture with diphtheroids; likely contaminant. No current urinary symptoms.
����������������������������������������������������������
Chief Complaint
-: Cellulitis and Other (right olecranon bursitis)
Subjective / Review of Systems
Patient seen and examined. Reports little to no pain in the right arm/elbow area. No difficulty with antibiotics.
Review of Systems: No Fever and No Chills
Vital Signs / Physical Exam
Vital Signs
Vital Signs
Temp Pulse Resp BP Pulse Ox
98.2 F 78 17 141/78 98
04/05/25 07:43 04/05/25 07:43 04/05/25 07:43 04/05/25 07:43 04/05/25 07:43
Physical Exam
Constitutional: No Acute Distress, Comfortable and Non-toxic
Eyes: Sclera Anicteric
Cardiovascular: S1/S2; Negative S3/S4
Gastrointestinal: Soft, Non Tender and Non Distended
Extremities: Other (right arm with ongoing decrease in erythema and edema. Incision site C/D/I with surtures. No drainage. )
Neurological: Awake and Alert
Psychological: Calm
Objective Data
Lab Data
Lab Results
04/05/25 05:53
04/05/25 05:53
ESR 12 mm/hour (0-20) 03/28/25 11:58
Estimated Creat Clear 51 ml/min 04/05/25 05:53
Lactic Acid Cancelled 03/28/25 16:00
Total Bilirubin 0.4 mg/dl (0.2-1.3) 04/02/25 06:34
AST 30 U/L (14-36) 04/02/25 06:34
ALT 24 U/L (0-35) 04/02/25 06:34
Alkaline Phosphatase 43 U/L (38-126) 04/02/25 06:34
C-Reactive Protein 163.50 mg/L (0.0-10.00) H 03/28/25 11:58
Most recent labs reviewed.
Micro Results:
03/31/25 17:00 Wound Culture - Final
Elbow - Right Staph aureus MRSA
Gram Stain - Final
03/31/25 17:00 Anaerobic Culture - Final
Elbow - Right NO ANAEROBES ISOLATED
03/28/25 12:01 Blood Culture - Final
Blood/Venous No Growth - Final Report
03/28/25 11:58 Blood Culture - Final
Blood/Venous No Growth - Final Report
03/28/25 12:01 Wound Culture - Final
Elbow - Right Staph aureus MRSA
Gram Stain - Final
03/28/25 15:40 Urine Culture - Final
Urine Diptheroids
Wound/abscess/other Cult Final 03/28/2025
Few Staph aureus MRSA
Organism 1 Staph aureus MRSA
1. Staph aureus MRSA
M.I.C. RX
--------- ---
Amoxicillin/Potas. Clavulanate <=4/2 R
Ampicillin >8 R
Clindamycin <=0.5 S
Gentamicin <=4 S
Erythromycin >4 R
Levofloxacin >4 R
Oxacillin >2 R
Tetracycline <=4 S
Trimethoprim/Sulfamethoxazole >2/38 R
Vancomycin 1 S
Imaging:
03/28/2025 X-ray right elbow: no acute fracture identified radiographically. Findings suggestive of lateral calcific tendinopathy. Large amount of soft tissue swelling is noted. Please see full dictation for additional detail.
[2025-04-05] MEDS: OCEAN, SALINE MIST NASAL (12:31)
--- NOTE | 2025-04-05 13:20 | W.DCSUMMARY ---
Discharge Summary
Discharge Data
Date of Admission: 03/28/25
Date of Discharge: 04/05/25
-
Pending Results: No
Hospital Course
85-year-old female with hx of gerd, htn, restrictive lung disease,
Presented with a right elbow pain which was concerning for right arm cellulitis with suspected right olecranon bursitis. Started on IV antibiotics. Orthopedic surgery consulted for arthrocentesis. Superficial wound culture grew MRSA. Therefore
IV antibiotic daptomycin was initiated by infectious diseases. Was taken to the OR by orthopedic surgery for right olecranon wound bursectomy to be irrigation and debridement. Infectious disease recommended continued IV antibiotics for at least 14
days. Outpt pcp and ortho follow up
Elbow Xray
IMPRESSION:
No acute fracture identified radiographically. Findings as above most suggestive of lateral calcific tendinopathy. Large amount of soft tissue swelling.
Kidney ultrasound
IMPRESSION:
No renal calculus or hydronephrosis to suggest obstructive uropathy. Folcatheter in place within the collapsed urinary bladder.
Mri Brain
IMPRESSION:
No acute intracranial abnormality noted. No acute infarct. Mild chronic microvascular white matter ischemic disease. Advanced atrophy, central slightly greater than cortical.
Seen and examined the day of discharge which was 04/05/2025. No new complaints. No acute overnight events.
General: Well Developed, Well Nourished and No Apparent Distress
HEENT: NormoCephalic, Moist mucous membranes and Atraumatic
Respiratory: Clear
Cardiac: S1/S2 and Regular Rhythm; No Murmur or Rub
GI: Soft, Non Tender, Non Distended and Normal Bowel Sounds
Musculoskeletal: Other (R elbwrapped in adis bandage)
Neuro: Awake, AO x 3 and Nonfocal/grossly intact
Psych: Calm
More than 30 minutes spent in discharge including
Final examination of the patient
Summarizing hospital stay
Instructions for continuing care to all relevant caregivers
Preparation of discharge records, prescriptions, and referral forms
Total time spent (in minutes): 33mins
Discharge Plan
-
Patient Disposition: Senior Living/SNF
Discharge Diagnosis/Procedures: septic bursitis
Condition: Good
Diet: As tolerated
Activity: As tolerated
Activity Restrictions/Additional Instructions:
Presented with a right elbow pain which was concerning for right arm cellulitis with suspected right olecranon bursitis. Started on IV antibiotics. Orthopedic surgery consulted for arthrocentesis. Superficial wound culture grew MRSA. Therefore
IV antibiotic daptomycin was initiated by infectious diseases. Was taken to the OR by orthopedic surgery for right olecranon wound bursectomy to be irrigation and debridement. Infectious disease recommended continued IV antibiotics for at least 14
days
Elbow Xray
IMPRESSION:
No acute fracture identified radiographically. Findings as above most suggestive of lateral calcific tendinopathy. Large amount of soft tissue swelling.
Kidney ultrasound
IMPRESSION:
No renal calculus or hydronephrosis to suggest obstructive uropathy. Folcatheter in place within the collapsed urinary bladder.
Mri Brain
IMPRESSION:
No acute intracranial abnormality noted. No acute infarct. Mild chronic microvascular white matter ischemic disease. Advanced atrophy, central slightly greater than cortical.
Referrals:
Emmanuel Franks MD [Family Provider, [facility]]
Kimberley Coto I., [Active, Orthopedics] - in two to four weeks
Additional Discharge Medication Instructions: daptomycin infusion per ID
Prescriptions:
New
tamsulosin 0.4 mg Capsule
0.4 mg PO DAILY Qty: 30 0RF
Continued
ascorbic acid (vitamin C) [Vitamin C] 500 MG tablet
1,000 mg PO DAILY
rizatriptan 10 MG tablet,disintegrating
10 mg PO DAILYPRN PRN (Reason: migraine)
omeprazole 20 MG capsule,delayed release(DR/EC)
20 mg PO DAILY
propranolol 120 MG capsule,extended release 24 hr
120 mg PO DAILY
loratadine 10 MG tablet
10 mg PO DAILYPRN PRN (Reason: seasonal allergies)
pregabalin 100 MG capsule
150 mg PO HS
cholecalciferol (vitamin D3) 1,000 UNITS tablet
1,000 units PO DAILY
multivitamin with folic acid [Tab-A-Jasper] 1 TABLET tablet
1 tab PO DAILY
Refresh Classic (PF) 10 DROPS dropperette
1 drops BOTH EYES QID
atorvastatin 20 mg Tablet
20 mg PO DAILY
pregabalin [Lyrica] 100 mg Capsule
100 mg PO BID
losartan 50 mg Tablet
50 mg PO DAILY
sertraline 25 mg Tablet
25 mg PO DAILY
hydrocortisone 10 mg tablet
5 mg PO QPM
cyclosporine [Restasis] 0.05 % Dropperette
1 drp BOTH EYES Q12H
Discharge Orders:
Discharge Patient (As Directed); Ordered 04/05/25
Ordered By: Samuel Sam
Discharge Date and Time
Print Language: DOMINICAN
--- NOTE | 2025-04-05 13:22 | CM ---
CM spoke with patient's son Anibal who is agreeable to pt's wishes to go to [facility] for SNF.
[facility] has a bed available; ambulance transport requested for transfer to [facility].
[facility] Report: [phone]
[facility]
--- NOTE | 2025-04-05 13:33 | PTCARENOTE ---
pt with no BM in 7 days. pt had Dulcolax suppository on Friday and Miralax yesterday, refused Senna last night and this am, requesting 'something stronger'. Dr. Samuel Sam notified and ordering Milk of molasses enema and changing Dulcolax
suppository daily, PRN, will continue to monitor.
--- NOTE | 2025-04-05 14:40 | PTCARENOTE ---
pt continent of large formed brown BM on BSC without enema or suppository, will continue to monitor.
[2025-04-05] MEDS: CUBICIN 10 MG IV (14:58)
[2025-04-05] MEDS: FLUSH (NSS) 2 FLUSH IV (14:59)
[2025-04-05 15:00] VITALS: BP 128/67
[2025-04-05 18:30] VITALS: BP 130/60
== END 2025-04-05 19:20 | DRG 501 ==
LOC: 3 WEST ACU 13:56
PROVIDERS: Internal Medicine; Nurse Practitioner Family; ADMITTING PHYSICIAN Hospitalist; ATTENDING PHYSICIAN Hospitalist; CONSULT PHYSICIAN Orthopaedic Surgery; EMERGENCY PHYSICIAN Emergency Medicine; FAMILY PHYSICIAN Family Medicine; OTHER PHYSICIAN Internal Medicine Infectious Disease
PROC: 0MD30ZZ Extraction of Right Elbow Bursa and Ligament, Open Approach (ICD-10-PCS; 2025-03-31)
DX: M71.121 Other infective bursitis, right elbow (principal); E87.1 Hypo-osmolality and hyponatremia; R17 Unspecified jaundice; L03.113 Cellulitis of right upper limb; B95.62 Methicillin resistant Staphylococcus aureus infection as the cause of diseases classified elsewhere; I10 Essential (primary) hypertension; J98.4 Other disorders of lung; K21.9 Gastro-esophageal reflux disease without esophagitis; Z91.048 Other nonmedicinal substance allergy status; Z91.040 Latex allergy status; W01.0XXD Fall on same level from slipping, tripping and stumbling without subsequent striking against object, subsequent encounter; E04.2 Nontoxic multinodular goiter; Z90.49 Acquired absence of other specified parts of digestive tract; Z98.1 Arthrodesis status; Z96.653 Presence of artificial knee joint, bilateral; M41.9 Scoliosis, unspecified; E78.00 Pure hypercholesterolemia, unspecified; H91.92 Unspecified hearing loss, left ear; Z79.899 Other long term (current) drug therapy
CPT/HCPCS: 10160; 70551; 73080; 76770; 80048; 80053; 81003; 81015; 82248; 82550; 83605; 83930; 85025; 85027; 85652; 86140; 87040; 87070; 87075; 87086; 87147; 87186; 87205; 96374; 97110; 97116; 97163; 97167; 99285; J0878; P9045